=== PATIENT | female | born 1940 | race Caucasian/White ===

== ENCOUNTER 2018-10-24 12:16 | Inpatient (IN) | payer MEDICARE, OTHER, SELFPAY ==
[2018-10-24] VITALS (19 sets, daily range): BP systolic 103–157; BP diastolic 59–117; PULSE 90–141; RESP 18–33; TEMP 36.4–36.8; O2SAT 93–99; BMI 48.4; BMI 47.0
--- NOTE | 2018-10-24 | DI.ECHO.S_ITS ---
[place] [facility]+ [facility] +---------+ : : [address] : : : : [id number] : : : : Phone: [phone] Echocardiogram Report + + :Name: JOANNA BLACK Study Date: 10/26/2018 Height: 59 in : :[facility] Weight: 232 lb : : Gender: Female BSA: 2.0 m2 : :: 1940 Age: 77 yrs BP: 118/90 mmHg: :Reason For Study: Congestive Heart Failure : : Performed By: Matilda Bates : :Referring: HUE HILLIARD : + + Interpretation Summary The ejection fraction is estimated to be 60-65%. The left atrium is severely dilated. The mitral valve leaflets appear mildly thickened, but open well. There is mild to moderate tricuspid regurgitation. The right ventricular systolic pressure is estimated to be at least 32 mmHg based on an estimated right atrial pressure of 3 mm Hg. There is mild to moderate mitral regurgitation. There is moderate to severe mitral annular calcification. Procedure: A two-dimensional transthoracic echocardiogram with color flow and Doppler was performed. The study quality was technically adequate. There is no prior echocardiogram noted for this patient. The patient was in atrial fibrillation with heart rates between 75-90 bpm during the exam. Left Ventricle: The left ventricle is normal in size, wall thickness, and systolic function without any focal wall motion abnormalities. The ejection fraction is estimated to be 60-65%. There are no obvious focal wall motion abnormalities noted but poor endocardial definition reduces the sensitivity for the detection of such. Diastolic function could not be accurately assessed due to atrial fibrillation. Right Ventricle: The right ventricle grossly appears normal in size with probable normal systolic function. Atria: The left atrium is severely dilated. Right atrial size is normal. The interatrial septum is intact with no evidence for an atrial septal defect. Mitral Valve: The mitral valve leaflets appear mildly thickened, but open well. There is moderate to severe mitral annular calcification. There is mild to moderate mitral regurgitation. Aortic Valve: The aortic valve opens well. No aortic regurgitation is present. Tricuspid Valve: The tricuspid valve leaflets are thin and pliable. There is mild to moderate tricuspid regurgitation. The right ventricular systolic pressure is estimated to be at least 32 mmHg based on an estimated right atrial pressure of 3 mm Hg. Pulmonic Valve: The pulmonic valve is not well seen, but is grossly normal. There is mild pulmonic regurgitation. Great Vessels: The aortic root is normal size. The ascending aorta is at the upper limits of normal in size. The IVC is of normal diameter and collapses greater than 50% with a sniff. This suggests a low right atrial pressure of 3 mm Hg. Pericardium/ Pleura There is no pericardial effusion. There is a moderate left-sided pleural effusion. MMode/2D Measurements & Calculations LVIDd: 4.5 cm Ao root diam: 2.7 cm LVIDs: 2.8 cm Aortic Jxn: 2.6 cm FS: 36.4 % asc Aorta Diam: 3.4 cm EPSS: 0.13 cm Ao Arch Diam (Prox Trans): 2.1 cm IVSd: 0.75 cm LVPWd: 0.72 cm LV cid. diameter/BSA (cm/m^2): 2.3 LV sys. diameter/BSA (cm/m^2): 1.4 LA dimension: 4.1 cm RA long axis: 6.3 cm LA A2 area: 27.8 cm2 RA area: 22.0 cm2 LA A4 area: 28.9 cm2 RA vol: 65.6 ml LA length (vol): 6.8 cm RA : 33.4 ml/m2 LA vol: 100.9 ml IVC diam: 2.0 cm LA vol index: 51.4 ml/m2 Doppler Measurements & Calculations Ao V2 max: 121.2 cm/sec MV E max yvette: 152.6 cm/sec Ao V2 mean: 82.1 cm/sec MV A max yvette: 36.6 cm/sec Ao max P.9 mmHg MV E/A: 4.2 Ao mean P.2 mmHg MV dec time: 0.20 sec Ao V2 VTI: 23.2 cm MV P1/2t: 59.2 msec TR max yvette: 269.8 cm/sec MV P1/2t max yvette: 153.9 cm/sec TR max P.1 mmHg MVA(P1/2t): 3.7 cm2 PA V2 max: 76.8 cm/sec PA V2 mean: 44.2 cm/sec PA mean P.0 mmHg PA Accel Time: 0.11 sec Reading Physician:01:13 PM
--- NOTE | 2018-10-24 12:35 | DI.RAD.S_ITS ---
PROCEDURE: XR CHEST 1V INDICATIONS: Shortness of breath TECHNIQUE: One view of the chest was acquired. COMPARISON: [facility], , CHEST 2 VIEW, 05/07/2017, 15:32. FINDINGS: Surgical changes and devices: None. Lungs and pleura: No pleural effusions or pneumothorax. Moderate diffuse coarse interstitial pulmonary opacity. Mediastinum: Mediastinal contours appear normal. Heart size is normal. Bones and chest wall: No suspicious bony lesions. Overlying soft tissues appear unremarkable. IMPRESSION: Moderate atypical pneumonia. Dictated by: Hernan Isabel M.D. on 10/24/2018 at 13:02 Approved by: Hernan Isabel M.D. on 10/24/2018 at 13:02
--- NOTE | 2018-10-24 12:40 | ED.SOB ---
HPI - SOB/Dyspnea General Chief Complaint: Shortness of Breath/Dyspnea Stated Complaint: trouble breathing, diarrhea Time Seen by Provider: 10/24/18 12:35 Source: patient Mode of arrival: ambulatory Limitations: no limitations History of Present Illness Patient is a 77-year-old female here for evaluation of shortness of breath and palpitations. Patient states that she has a history of atrial fibrillation. She is on metoprolol and digoxin. She states that she occasionally goes in atrial fibrillation. She states she does not know when she goes in and out of it. She states that in the past 24 hr she has noticed that her heart rate has been fast and she has been short of breath. No chest pain. Related Data Home Medications Medication Instructions Recorded Confirmed aspirin 81 mg PO QDAY #0 06/16/17 10/24/18 atorvastatin [Lipitor] 40 mg PO QDAY #0 06/16/17 digoxin [Lanoxin] 0.125 mg PO QDAY #0 06/16/17 10/24/18 diltiazem HCl 360 mg PO QDAY #0 06/16/17 10/24/18 furosemide 40 mg PO QDAY #0 06/16/17 10/24/18 potassium chloride [Klor-Con 10] 20 meq PO QD-BID #0 06/16/17 10/24/18 spironolactone 12.5 mg QDAY #0 06/16/17 10/24/18 sulfasalazine 1,000 mg PO BID #0 06/16/17 10/24/18 cholecalciferol (vitamin D3) 2,000 unit PO DAILY 10/24/18 10/24/18 [Vitamin D3] cranberry fruit concentrate 450 mg PO DAILY 10/24/18 10/24/18 [cranberry] diphenhydramine-acetaminophen 1 tab PO BEDTIME PRN 10/24/18 10/24/18 [Tylenol PM Extra Strength] escitalopram oxalate 10 mg PO DAILY 10/24/18 10/24/18 lisinopril [Prinivil] 2.5 mg PO DAILY 10/24/18 10/24/18 metoprolol succinate 200 mg PO BID 10/24/18 10/24/18 rivaroxaban 20 mg PO QPM 10/24/18 10/24/18 Allergies Allergy/AdvReac Type Severity Reaction Status Date / Time No Known Allergies Allergy Uncoded 10/24/18 12:31 Review of Systems Review of Systems All systems reviewed & are unremarkable except as noted in HPI and below Constitutional Denies fever(s) and Denies headache(s) ENT Ears, Nose, Mouth, and Throat: Denies dizziness and Denies headache(s) Cardiovascular Denies chest pain, Denies syncope, Reports rapid heart rate, Reports irregular heart rhythm, Denies lightheadedness, Reports palpitations and Reports dyspnea Respiratory Denies cough, Reports dyspnea and Denies wheezing Gastrointestinal Gastrointestinal: Denies change in bowel habits, Denies nausea and Denies vomiting Genitourinary Denies dysuria Musculoskeletal Denies myalgias and Denies arthralgias Integumentary/Breasts Denies rash Neurologic Denies confusion, Denies dizziness, Denies syncope and Denies headache(s) Psychiatric Denies confusion Endocrine Reports palpitations Hematologic/Lymphatic Denies easy bleeding and Denies easy bruising Allergic/Immunologic Denies wheezing PFSH Medical History Atrial fibrillation (Acute) Hyperlipidemia (Acute) Hypertension (Acute) Surgical History No pertinent past surgical history (Acute) Social History lives independently: Yes Smoking Status: Former smoker Exam Initial Vital Signs Initial Vital Signs: Vital Signs Temperature 97.7 F 10/24/18 12:26 Pulse Rate 132 H 10/24/18 12:26 Blood Pressure 157/117 H 10/24/18 12:26 Pulse Oximetry 93 10/24/18 12:26 Const General: cooperative, comfortable, well developed, well groomed and No acute distress Orientation: alert, awake and oriented x3 HENMT Head: normal to inspection and normocephalic Eyes General: appearance normal, both eyes and all related structures Neck Neck: no meningeal signs Chest Chest: normal inspection of the chest Resp Effort & Inspection: not labored, no respiratory distress, no retractions and tachypneic Auscultation: clear to auscultation bilaterally Cardio Rate: tachycardic Rhythm: abnormal rhythm irregularly irregular Pulses: radial pulses present GI Inspection: non-distended Palpation: soft, No firm and No tender Skin Lesions: no lesions Rashes: no rashes Neuro General: alert, awake and oriented x3 Cognition: normal cognition Speech: speech normal Sensory Exam: no sensory deficits noted Extrem General: capillary refill normal Psych Appearance: grossly normal and well kempt Course Orders Ordered: ED Orders 10/24/18 12:35 XR chest 1V Stat EKG-12 Lead Stat 10/24/18 12:55 B Type Natriuretic Peptide Stat Complete Blood Count AUTO DIFF Stat Comprehensive Metabolic Panel Stat Ethanol (ETOH) Stat Lipase Stat Partial Thromboplastin Time Stat Prothrombin Time INR Stat Troponin I Stat Diltiazem HCl 125 mg/ Dextrose 125 mls @ 5 mls/hr IV TITRATE CARISSA; Protocol Last Titration: 10/24/18 14:57 Dose: 10 mg/hr, 10 mls/hr Admin: 10/24/18 14:23 Dose: 5 mg/hr, 5 mls/hr Discontinued Medications Diltiazem HCl (Cardizem) 10 mg IV NOW ONE Stop: 10/24/18 12:53 Last Admin: 10/24/18 13:03 Dose: 10 mg Levofloxacin (Levaquin) 750 mg in 150 mls @ 100 mls/hr IV NOW ONE Stop: 10/24/18 15:09 Last Admin: 10/24/18 14:23 Dose: 100 mls/hr Metoprolol Succinate (Toprol Xl) 200 mg PO NOW ONE Stop: 10/24/18 14:51 Last Admin: 10/24/18 15:06 Dose: 200 mg Vital Signs - 8 hr 10/24/18 12:26 10/24/18 12:45 10/24/18 13:03 Temperature 97.7 F Pulse Rate 132 H 141 H Respiratory Rate Blood Pressure 157/117 H 130/90 Blood Pressure [Left Arm] 157/117 H Pulse Oximetry 93 10/24/18 13:30 10/24/18 14:00 10/24/18 14:23 Temperature Pulse Rate 112 H 123 H 118 H Respiratory Rate 33 H 25 H Blood Pressure 121/95 H Blood Pressure [Left Arm] 113/72 121/95 H Pulse Oximetry 93 93 10/24/18 14:30 10/24/18 15:06 Temperature Pulse Rate 124 H 128 H Respiratory Rate 33 H Blood Pressure 114/98 H Blood Pressure [Left Arm] 133/83 Pulse Oximetry 93 MDM - SOB/Dyspnea Lab Data Attestation: I reviewed the patient's lab results. Result diagrams: 10/24/18 12:55 10/24/18 12:55 Lab Results 10/24/18 10/24/18 10/24/18 Range/Units 12:55 12:55 12:55 WBC 9.1 (4.5-11.0) X10^3/uL RBC 4.19 (4.0-5.2) X10^6/uL Hgb 13.8 (12.0-16.0) g/dL Hct 41.3 (36-46) % MCV 98.6 (80-100) fL MCH 32.8 (26-34) PG MCHC 33.3 (30-36) % RDW 15.5 H (11.6-14.8) % Plt Count 252 (150-400) X10^3/uL Neut % (Auto) 80.0 H (50-75) % Lymph % (Auto) 8.0 L (25-40) % [place] % (Auto) 11.0 (3-14) % Eos % (Auto) 0.4 L (2-4) % Baso % (Auto) 0.6 (0-2) % Neut # (Auto) 7200 H (8047-6638) /uL PT 25.4 H (10.1-12.7) SECONDS INR 2.3 H (0.9-1.3) APTT 32 (26.4-36.2) SECONDS Sodium 144 (137-145) mmol/L Potassium 4.4 (3.4-5.1) mmol/L Chloride 101 (98-107) mmol/L Carbon Dioxide 30 (22-32) mmol/L BUN 13 (7-17) mg/dL Creatinine 0.70 (0.52-1.04) mg/dL Estimated GFR > 60.0 (>60) mL/min BUN/Creatinine Ratio 18.6 (6-22) Glucose 92 (80-110) mg/dL Calcium 9.5 (8.4-10.2) mg/dL Total Bilirubin 1.2 (0.2-1.3) mg/dL AST 53 H (14-36) IU/L ALT 37 (9-52) IU/L Alkaline Phosphatase 88 (38-126) U/L Troponin I 0.059 H (0.01-0.034) ng/mL B-Natriuretic Peptide 391.0 H (<100) Total Protein 7.6 (6.3-8.2) g/dL Albumin 4.2 (3.5-5.0) g/dL Globulin 3.4 (1.7-4.1) g/dL Albumin/Globulin Ratio 1.2 (1.0-2.8) Lipase 28 (23-300) U/L Ethyl Alcohol < 10 mg/dL Imaging Data Chest x-ray: Radiologist's impression: PROCEDURE: XR CHEST 1V INDICATIONS: Shortness of breath TECHNIQUE: One view of the chest was acquired. COMPARISON: [facility], , CHEST 2 VIEW, 05/07/2017, 15:32. FINDINGS: Surgical changes and devices: None. Lungs and pleura: No pleural effusions or pneumothorax. Moderate diffuse coarse interstitial pulmonary opacity. Mediastinum: Mediastinal contours appear normal. Heart size is normal. Bones and chest wall: No suspicious bony lesions. Overlying soft tissues appear unremarkable. IMPRESSION: Moderate atypical pneumonia. Dictated by: Hernan Isabel M.D. on 10/24/2018 at 13:02 Approved by: Hernan Isabel M.D. on 10/24/2018 at 13:02 ECG Data Attestation: I personally reviewed and interpreted this ECG as follows: Prior ECG tracings: not available for review Interpretation: Atrial fibrillation Ventricular rate of 132 Right bundle branch block Normal QRS Normal QTC No ST T wave changes MDM Narrative Medical decision making narrative: Patient with what appears to be a history of paroxysmal atrial fibrillation. She is currently anticoagulated. She is on metoprolol and digoxin. She arrives today with shortness of breath and palpitations. She was given initial bolus of Cardizem which did improve her heart rate into the 90s however return to the 120s. She was never hypotensive. She was started on a Cardizem drip. She states that in the past metoprolol has helped her symptoms so an oral dose of metoprolol was ordered. During her stay here she did tell us that she has not taken any of her medications since Friday. The chest x-ray was concerning for a atypical pneumonia. She did have coarse breath sounds upon arrival was also shortness of breath. She was started on Levaquin. I suspect that the slight bump in her troponin is demand ischemia from the atrial fibrillation. I discussed the case with Dr. Smith with Internal Medicine. Will admit to the ICU on a Cardizem drip. I discussed the admission with the patient. Family was at bedside. They all expressed understanding and agreement with this plan. Critical Care Time Critical Care Time: Yes Total Critical Care Time: 35 Attestation: The high probability of a clinically significant, sudden or life threatening deterioration of the cardiovascular system(s) required my full and direct attention, intervention and personal management. The aggregate critical care time was 35 minutes. This time is in addition to time spent performing reported procedures but includes the following: [] Data Review and interpretation [] Patient assessment and monitoring of vital signs [] Documentation [] Medication orders and management Coordination of care Discharge Plan Departure Patient Disposition: Admitted As Inpatient Clinical Impression: Atrial fibrillation with rapid ventricular response, Pneumonia Admit Date/Time: 10/24/18 15:03 Admit Provider: Stephanie Smith
[2018-10-24] MEDS: dilTIAZem 5 MG/ML SDV 10 MG IV (13:03)
[2018-10-24 13:04] LABS: Add Manual Diff / Slide Review NO; Basophils Percent Auto 0.6 % (0-2); Eosinophils Percent Auto 0.4 % (2-4); Hematocrit 41.3 % (36-46); Hemoglobin 13.8 g/dL (12.0-16.0); Mean Corpuscular HGB Conc 33.3 % (30-36); Mean Corpuscular Hemoglobin 32.8 PG (26-34); Mean Corpuscular Volume 98.6 fL (80-100); Neutrophils Absolute Auto 7200 /uL (3000-5900); Platelet Count 252 X10^3/uL (150-400); Red Blood Cell Count 4.19 X10^6/uL (4.0-5.2); Red Cell Distribution Width 15.5 % (11.6-14.8); White Blood Cell Count 9.1 X10^3/uL (4.5-11.0)
[2018-10-24 13:15] LABS: INR 2.3 (0.9-1.3); Prothrombin Time 25.4 SECONDS (10.1-12.7)
[2018-10-24 13:18] LABS: PTT Partial Thromboplastin Tim 32 SECONDS (26.4-36.2)
[2018-10-24 13:19] LABS: Alanine Aminotransferase 37 IU/L (9-52); Albumin 4.2 g/dL (3.5-5.0); Albumin Globulin Ratio 1.2 (1.0-2.8); Alkaline Phosphatase 88 U/L (38-126); Aspartate Aminotransferase 53 IU/L (14-36); BUN Creatinine Ratio 18.6 (6-22); Bilirubin Total 1.2 mg/dL (0.2-1.3); Blood Urea Nitrogen 13 mg/dL (7-17); Calcium 9.5 mg/dL (8.4-10.2); Carbon Dioxide 30 mmol/L (22-32); Chloride 101 mmol/L (98-107); Estimated Glomerular Filt Rate > 60.0 mL/min (>60); Ethanol (ETOH) < 10 mg/dL; Globulin 3.4 g/dL (1.7-4.1); Glucose 92 mg/dL (80-110); HEMOLYSIS 18 (0-50); Lipase 28 U/L (23-300); Potassium 4.4 mmol/L (3.4-5.1); Sodium 144 mmol/L (137-145); Total Protein 7.6 g/dL (6.3-8.2)
[2018-10-24 13:29] LABS: Troponin I 0.059 ng/mL (0.01-0.034)
--- NOTE | 2018-10-24 13:41 | PC.NURSE ---
Pt's hr continues to be irregular. Hr ranges from 90s to 130s.
[2018-10-24] MEDS: levoFLOXacin 750 MG/150 ML PIGGYBACK 100 MG IV (14:23)
[2018-10-24] MEDS: dilTIAZem 125 MG in DEXTROSE 5 % IN WATER 100 ML IV (14:23)
[2018-10-24] MEDS: METOPROLOL ER 50 MG TABLET 200 MG PO ×2 (15:06→20:38)
--- NOTE | 2018-10-24 15:56 | PM.HP.1 ---
History of Present Illness Date Patient Seen: 10/24/18 Time Patient Seen: 16:12 Chief complaint: trouble breathing, diarrhea Narrative: 77-year-old female with known past medical history of atrial fibrillation on multiple therapy as well as anticoagulation, hyperlipidemia, hypertension, questionable heart failure, depression/anxiety presented to emergency department with shortness of breath. Patient states that her has been at [facility] for the past 2 weeks due to bypass surgery, and patient has been visiting him on the daily basis and living in the hotel near the hospital. Because of frequent visitations and constant traveling, patient has stopped taking all her medications over week ago due to no time. About 4 days ago patient started noticing increasing shortness of breath. She has also noticed palpitations that would occur on and off for the past 4 days, that would go away in their own. Patient denies any loss of consciousness, blurry vision, dizziness. Patient denies any cough or mucus per day section. Patient denies any chest pain. Patient denies any nausea, vomiting caused abdominal pain, constipation, however states that she has been having loose stools for the past 4 days. The stools are nonbilious nonbloody, non melenic, not volumous, more formed, and occur once or twice a day. Patient denies any symptoms. Of note patient did state that she has makes her antidepressive medications with alcohol 2 days ago which has resulted in remote memory loss and action of events the patient does not recall. In the emergency department patient's vital signs revealed tachycardia with heart rate between 130-150. Although patient was tachypneic and 12/20/2021, she was saturating 96-97% on room air. Blood pressure was 141/103. She was afebrile. Patient was given Cardizem IV push with subsequent drop in heart rate to 90s. Prior to patient being discharged, however, her heart rate went back up to 130s-150s. She was placed on Cardizem drip. Lab workup revealed WBCs 9.1, hemoglobin 13.8, hematocrit 41.3, platelets 252. Sodium 144, potassium 4.4, chloride 101, carbon dioxide 30, BUN 13, creatinine 0.7, glucose 92. LFTs within normal range. Troponin slightly elevated at 0.059. BNP slightly elevated at 391. EKG showed AFib with RVR however no ST changes. Chest x-ray revealed no pleural effusions or pneumothorax but moderate diffuse coarse interstitial pulmonary opacity, consistent with moderate atypical pneumonia. Patient was admitted to ICU for further management of AFib with RVR and atypical pneumonia. Patient History Medical History Atrial fibrillation (Acute) Atypical pneumonia (Acute) DVT (deep venous thrombosis) (Acute) Hyperlipidemia (Acute) Hypertension (Acute) Depression (Chronic) Surgical History H/O section (Acute) History of appendectomy (Acute) History of cholecystectomy (Acute) No pertinent past surgical history (Acute) Family & Social History Social History: lives independently Yes Safety & Behavioral: Feels Safe in Current Yes Environment Tobacco & Substance use: Smoking Status Former smoker alcohol intake frequency holiday/special occasion Substance Use Type does not use Meds Home Medications Medication Instructions Recorded Confirmed Type aspirin 81 mg PO QDAY #0 06/16/17 10/24/18 History atorvastatin [Lipitor] 40 mg PO QDAY #0 06/16/17 10/24/18 History digoxin [Lanoxin] 0.125 mg PO QDAY #0 06/16/17 10/24/18 History diltiazem HCl 360 mg PO QDAY #0 06/16/17 10/24/18 History furosemide 40 mg PO QDAY #0 06/16/17 10/24/18 History potassium chloride [Klor-Con 10] 20 meq PO QD-BID #0 06/16/17 10/24/18 History spironolactone 12.5 mg QDAY #0 06/16/17 10/24/18 History sulfasalazine 1,000 mg PO BID #0 06/16/17 10/24/18 History cholecalciferol (vitamin D3) 2,000 unit PO DAILY 10/24/18 10/24/18 History [Vitamin D3] cranberry fruit concentrate 450 mg PO DAILY 10/24/18 10/24/18 History [cranberry] diphenhydramine-acetaminophen 1 tab PO BEDTIME PRN 10/24/18 10/24/18 History [Tylenol PM Extra Strength] escitalopram oxalate 10 mg PO DAILY 10/24/18 10/24/18 History lisinopril [Prinivil] 2.5 mg PO DAILY 10/24/18 10/24/18 History metoprolol succinate 200 mg PO BID 10/24/18 10/24/18 History rivaroxaban 20 mg PO QPM 10/24/18 10/24/18 History Allergies Allergy/AdvReac Type Severity Reaction Status Date / Time No Known Allergies Allergy Uncoded 10/24/18 12:31 Review of Systems Review of Systems All systems reviewed & are unremarkable except as noted in HPI and below Exam Vital Signs (past 8 hours): - 10/24/18 12:26 10/24/18 12:45 10/24/18 13:03 Temperature 97.7 F Pulse Rate 132 H 141 H Respiratory Rate Blood Pressure 157/117 H 130/90 Blood Pressure [Left Arm] 157/117 H Pulse Oximetry 93 10/24/18 13:30 10/24/18 14:00 10/24/18 14:23 Temperature Pulse Rate 112 H 123 H 118 H Respiratory Rate 33 H 25 H Blood Pressure 121/95 H Blood Pressure [Left Arm] 113/72 121/95 H Pulse Oximetry 93 93 10/24/18 14:30 10/24/18 15:06 10/24/18 15:45 Temperature Pulse Rate 124 H 128 H 115 H Respiratory Rate 33 H 20 Blood Pressure 114/98 H 141/103 H Blood Pressure [Left Arm] 133/83 Pulse Oximetry 93 96 10/24/18 15:50 Temperature Pulse Rate 116 H Respiratory Rate Blood Pressure 141/103 H Blood Pressure [Left Arm] Pulse Oximetry Oxygen Delivery Method Nasal Cannula Oxygen Flow Rate 2 Narrative Exam Narrative: General: No acute distress, A/O x3 HEENT: Nasal cannula oxygen in place. PERRLA bilaterally. Moist mucous membranes. Neck: Supple, no JVD or LAD CV: Irregular rhythm, tachycardia, no murmurs or gallops Respiratory: Tachypnea, coarse breath sounds throughout all lung english with mild crackles in the left base. No wheezing GI: Positive bowel sounds in all 4 quadrants, no organomegaly, no tenderness to palpation Musculoskeletal: Patient moves all extremities Extremities: 2+ pitting edema in lower extremities bilaterally up to knees Skin: No lesions or bruising Neuro: No focal deficits Psych: Mood is appropriate, AAO x3 Objective Labs Result Diagrams: 10/24/18 12:55 10/24/18 12:55 Labs: Laboratory Results - last 24 hr 10/24/18 10/24/18 10/24/18 12:55 12:55 12:55 WBC 9.1 RBC 4.19 Hgb 13.8 Hct 41.3 MCV 98.6 MCH 32.8 MCHC 33.3 RDW 15.5 H Plt Count 252 Neut % (Auto) 80.0 H Lymph % (Auto) 8.0 L [place] % (Auto) 11.0 Eos % (Auto) 0.4 L Baso % (Auto) 0.6 Neut # (Auto) 7200 H PT 25.4 H INR 2.3 H APTT 32 Sodium 144 Potassium 4.4 Chloride 101 Carbon Dioxide 30 BUN 13 Creatinine 0.70 Estimated GFR > 60.0 BUN/Creatinine Ratio 18.6 Glucose 92 Calcium 9.5 Total Bilirubin 1.2 AST 53 H ALT 37 Alkaline Phosphatase 88 Troponin I 0.059 H B-Natriuretic Peptide 391.0 H Total Protein 7.6 Albumin 4.2 Globulin 3.4 Albumin/Globulin Ratio 1.2 Lipase 28 Ethyl Alcohol < 10 Assessment & Plan Plan: Assessment/Plan Narrative: 1. AFib with RVR -likely due to medication noncompliance -failed diltiazem push in emergency department, now on Cardizem drip -continue Cardizem drip at this time and resume home medications metoprolol, digoxin, aspirin, and Xarelto. Will transition to home regimen p.o. Cardizem once patient's heart rate is controlled -continue to monitor on telemetry in ICU 2. Atypical pneumonia -as demonstrated on chest x-ray -no leukocytosis, patient is afebrile and hemodynamically stable (aside from AFib with RVR) -started on Levaquin IV in the ED, will continue at this time -will get blood cultures, sputum cultures, Legionella urine antigen, and mycoplasma urine to test -do nebs as needed as per RT, oxygen as per RT 3. Hypertension -blood pressure elevated on admission: 141/103 -will resume home regimen metoprolol, spironolactone, furosemide -patient is on Cardizem drip -monitor blood pressure 4. Fluid overload -likely due to medication noncompliance -patient is on home medication furosemide and spironolactone.... Ejection fraction is unknown -BNP 391 and clinically patient has peripheral edema -will get echocardiogram to assess ejection fraction -will resume furosemide and spironolactone -weights daily, I/O measurement, fluid restriction 5. Troponin elevation -likely type II demand ischemia due to AFib with RVR -troponin is 0.059 -EKG showed AFib with RVR but no ST changes and patient is pain-free -continue to trend troponins and EKGs q.6 hours x2 more until trending down 6. Depression/anxiety -resume home regimen Lexapro Patient is full code DVT prophylaxis with resumption of Xarelto 60 min spent evaluating and managing patient 6.
--- NOTE | 2018-10-24 16:55 | PC.NURSE ---
Admit Note 1610 - Patient admitted to room 104. Brought over on stretcher by nursing staff. Able to walk self to bed with standby assist. Alert and oriented with pleasant affect. Denies pain at this time. Has some SOB with exertion. Peaceful at rest. Diltiazem gtt running per order at 10mg/hr. Oriented to room and call light, call light within reach, family at bedside.
[2018-10-24] MEDS: POTASSIUM CHLORIDE 20 MEQ TAB PO (17:14)
[2018-10-24] MEDS: RIVAROXABAN 10 MG TABLET 20 MG PO (17:14)
[2018-10-24] MEDS: DIGOXIN 0.125 MG TABLET PO (17:15)
[2018-10-24 20:17] LABS: Troponin I 0.068 ng/mL (0.01-0.034)
[2018-10-24] MEDS: ATORVASTATIN 20 MG TABLET 40 MG PO (20:38)
[2018-10-25] VITALS (18 sets, daily range): BP systolic 98–156; BP diastolic 51–85; PULSE 73–109; RESP 11–28; TEMP 36.2–37.2; O2SAT 86–99
[2018-10-25] MEDS: dilTIAZem 125 MG in DEXTROSE 5 % IN WATER 100 ML 10 ML IV (01:41)
--- NOTE | 2018-10-25 03:29 | PC.NURSE ---
[employer] Operator Note: 0030: Sleeping intermittently. Remains on Cardizem drip at 10mg/hr. HR 95-110. Pt denies chest pain or pressure. IV in place in lt AC and saline lock in rt AC. Remains on O2 2L/NC. 0300: HR down to 78-84. Cardizem drip decreased to 5mg/hr, 0320: HR remains 84-94. Cardizem drip decreased to 2mg/hr.
[2018-10-25 05:48] LABS: Add Manual Diff / Slide Review NO; Basophils Percent Auto 0.8 % (0-2); Eosinophils Percent Auto 1.8 % (2-4); Hematocrit 38.5 % (36-46); Hemoglobin 12.7 g/dL (12.0-16.0); Lymphocytes Percent Auto 12.7 % (25-40); Mean Corpuscular HGB Conc 32.9 % (30-36); Mean Corpuscular Hemoglobin 32.5 PG (26-34); Mean Corpuscular Volume 98.8 fL (80-100); Monocytes Percent Auto 15.5 % (3-14); Neutrophils Absolute Auto 4400 /uL (3000-5900); Neutrophils Percent Auto 69.2 % (50-75); Platelet Count 220 X10^3/uL (150-400); Red Cell Distribution Width 15.3 % (11.6-14.8); White Blood Cell Count 6.3 X10^3/uL (4.5-11.0)
[2018-10-25 05:54] LABS: BUN Creatinine Ratio 18.6 (6-22); Blood Urea Nitrogen 13 mg/dL (7-17); Calcium 8.8 mg/dL (8.4-10.2); Carbon Dioxide 28 mmol/L (22-32); Chloride 102 mmol/L (98-107); Estimated Glomerular Filt Rate > 60.0 mL/min (>60); Glucose 86 mg/dL (80-110); HEMOLYSIS 38 (0-50); Potassium 4.5 mmol/L (3.4-5.1); Sodium 140 mmol/L (137-145)
[2018-10-25 06:17] LABS: Troponin I 0.048 ng/mL (0.01-0.034)
--- NOTE | 2018-10-25 07:58 | PM.PN.1 ---
Subjective Date Patient Seen: 10/25/18 Time Patient Seen: 07:58 Interval history: Follow-up on AFib with RVR, and shortness of breath Patient seen at bedside. She was on Cardizem drip all throughout the night, which successfully weaned down to 2 mg per hour. Will attempt transitioning to p.o. today. Patient's oxygenation dropped to 88% overnight, and she was placed on 2 L oxygen. No chest pain, fevers, nausea or vomiting. Exam Vital Signs (past 8 hours): - 10/25/18 00:00 10/25/18 01:00 10/25/18 02:00 Temperature 97.8 F 97.3 F L Pulse Rate 90 85 83 Respiratory Rate 16 18 16 Blood Pressure 109/74 107/59 L 113/74 Pulse Oximetry 96 98 97 10/25/18 04:00 10/25/18 05:00 10/25/18 06:00 Temperature 97.9 F Pulse Rate 85 88 91 H Respiratory Rate 18 14 11 L Blood Pressure 114/80 116/60 117/74 Pulse Oximetry 99 97 99 10/25/18 07:00 Temperature 97.8 F Pulse Rate 102 H Respiratory Rate 16 Blood Pressure 131/85 Pulse Oximetry 96 Oxygen Delivery Method Nasal Cannula Oxygen Flow Rate 2.5 Narrative Exam Narrative: General: No acute distress, A/O x3 HEENT: Nasal cannula oxygen in place. PERRLA bilaterally. Moist mucous membranes. Neck: Supple, no JVD or LAD CV: Irregular rhythm, no murmurs or gallops Respiratory: Coarse breath sounds throughout all lung english with mild crackles in the left base. No wheezing GI: Positive bowel sounds in all 4 quadrants, no organomegaly, no tenderness to palpation Musculoskeletal: Patient moves all extremities Extremities: 2+ pitting edema in lower extremities bilaterally up to knees Skin: No lesions or bruising Neuro: No focal deficits Psych: Mood is appropriate, AAO x3 Objective Labs Result Diagrams: 10/25/18 05:06 10/25/18 05:06 Labs: Laboratory Results - last 24 hr 10/24/18 10/24/18 10/24/18 12:55 12:55 12:55 WBC 9.1 RBC 4.19 Hgb 13.8 Hct 41.3 MCV 98.6 MCH 32.8 MCHC 33.3 RDW 15.5 H Plt Count 252 Neut % (Auto) 80.0 H Lymph % (Auto) 8.0 L Daggett % (Auto) 11.0 Eos % (Auto) 0.4 L Baso % (Auto) 0.6 Neut # (Auto) 7200 H PT 25.4 H INR 2.3 H APTT 32 Sodium 144 Potassium 4.4 Chloride 101 Carbon Dioxide 30 BUN 13 Creatinine 0.70 Estimated GFR > 60.0 BUN/Creatinine Ratio 18.6 Glucose 92 Calcium 9.5 Total Bilirubin 1.2 AST 53 H ALT 37 Alkaline Phosphatase 88 Troponin I 0.059 H B-Natriuretic Peptide 391.0 H Total Protein 7.6 Albumin 4.2 Globulin 3.4 Albumin/Globulin Ratio 1.2 Lipase 28 Nasal Screen MRSA (PCR) Ethyl Alcohol < 10 10/24/18 10/24/18 10/25/18 16:10 19:10 05:06 WBC 6.3 RBC 3.90 L Hgb 12.7 Hct 38.5 MCV 98.8 MCH 32.5 MCHC 32.9 RDW 15.3 H Plt Count 220 Neut % (Auto) 69.2 Lymph % (Auto) 12.7 L Daggett % (Auto) 15.5 H Eos % (Auto) 1.8 L Baso % (Auto) 0.8 Neut # (Auto) 4400 PT INR APTT Sodium Potassium Chloride Carbon Dioxide BUN Creatinine Estimated GFR BUN/Creatinine Ratio Glucose Calcium Total Bilirubin AST ALT Alkaline Phosphatase Troponin I 0.068 H B-Natriuretic Peptide Total Protein Albumin Globulin Albumin/Globulin Ratio Lipase Nasal Screen MRSA (PCR) Negative for mrsa Ethyl Alcohol 10/25/18 10/25/18 05:06 05:06 WBC RBC Hgb Hct MCV MCH MCHC RDW Plt Count Neut % (Auto) Lymph % (Auto) Daggett % (Auto) Eos % (Auto) Baso % (Auto) Neut # (Auto) PT INR APTT Sodium 140 Potassium 4.5 Chloride 102 Carbon Dioxide 28 BUN 13 Creatinine 0.70 Estimated GFR > 60.0 BUN/Creatinine Ratio 18.6 Glucose 86 Calcium 8.8 Total Bilirubin AST ALT Alkaline Phosphatase Troponin I 0.048 H B-Natriuretic Peptide Total Protein Albumin Globulin Albumin/Globulin Ratio Lipase Nasal Screen MRSA (PCR) Ethyl Alcohol Assessment & Plan Plan: Assessment/Plan Narrative: 1. AFib with RVR -likely due to medication noncompliance -failed diltiazem push in emergency department, now on Cardizem drip but down to 2mg/hr -Will transition to home dose cardizem PO and turn off the drip -continue metoprolol, digoxin, aspirin, and Xarelto -continue to monitor on telemetry in ICU 2. Atypical pneumonia -as demonstrated on chest x-ray -no leukocytosis, patient is afebrile and hemodynamically stable (aside from AFib with RVR) -continue Levaquin IV -pending blood cultures, sputum cultures, Legionella urine antigen, and mycoplasma urine to test -duonebs as needed as per RT, oxygen as per RT 3. Hypertension -blood pressure stable -will resume home regimen metoprolol, spironolactone, furosemide. Will now add on Cardizem PO -monitor blood pressure 4. Fluid overload -likely due to medication noncompliance -patient is on home medication furosemide and spironolactone.... Ejection fraction is unknown -BNP 391 and clinically patient has peripheral edema -echocardiogram to assess ejection fraction is pending -continue furosemide and spironolactone -weights daily, I/O measurement, fluid restriction 5. Troponin elevation -likely type II demand ischemia due to AFib with RVR -troponin is 0.059->.068->.048 -EKG showed AFib with RVR but no ST changes and patient is pain-free -continue telemetry monitoring, no more troponin trending 6. Depression/anxiety -continue home regimen Lexapro Patient is full code DVT prophylaxis with resumption of Xarelto
[2018-10-25] MEDS: CHOLECALCIFEROL (VITAMIN D3) 1,000 UNIT TABLET 2000 UNIT PO (08:21)
[2018-10-25] MEDS: METOPROLOL ER 50 MG TABLET 200 MG PO ×2 (08:22→21:01)
[2018-10-25] MEDS: SPIRONOLACTONE 25 MG TABLET 12.5 MG PO (08:23)
[2018-10-25] MEDS: LISINOPRIL 5 MG TABLET 2.5 MG PO (08:27)
[2018-10-25] MEDS: POTASSIUM CHLORIDE 20 MEQ TAB PO ×2 (08:27→16:57)
[2018-10-25] MEDS: ESCITALOPRAM 10 MG TABLET PO (08:27)
[2018-10-25] MEDS: ASPIRIN EC 81 MG TABLET PO (08:27)
[2018-10-25] MEDS: FUROSEMIDE 40 MG TABLET PO (08:27)
[2018-10-25] MEDS: dilTIAZem CD 180 MG CAP 360 MG PO (08:30)
--- NOTE | 2018-10-25 08:43 | CM.DANOTE ---
Addendum entered by Arcelia Garnica R.N. 10/25/18 10:59: Discussed case with XI Yanez, regarding patient's non-compliance with medication. Discussed at rounds as well. Original Note: Case received, EMR reviewed and met with patient. Introduced self and role. DCP template completed with information currently available. Patient is a 77 year old female who admitted yesterday afternoon to the care of the hospitalist team. PCP: Dr. Smalls. Payer: confirmed: Medicare/[employer]. Patient came to hospital via family vehicle, with symptoms of difficulty breathing. Patient has history of A-fib/RVR. Patient was noted to have tachycardia at admission. Also carries diagnosis of Pneumonia. Patient alert, on oxygen. Her has been at [facility] in [place], just had bypass surgery, and she had been going back and forth to see him. She stated that he is now at [facility]. Patient had not been taking her medications as she should be, due to her being pre-occupied with 's illness. Asked patient if she had family support, stated that she has friends, and that her grandson, Hector, lives with her. Unclear if patient may need assist with medication management through Home Health, but will assess as plan unfolds. Patient lives in [place]. P: DCP to follow closely as plan unfolds, and note how she progresses in hospital. Arcelia Garnica RN/[employer]
--- NOTE | 2018-10-25 10:27 | CM.SWNOTE ---
Master Merchandiser Consult Request: Reviewed this w/ RN DC Physicist Acoust[employer] Emma; she has met w/pt and does not see a need for WORD PROCESSING MACHINE OPERATOR to consult at this time. RN will update WORD PROCESSING MACHINE OPERATOR team if needs change. LUKE
[2018-10-25] MEDS: RIVAROXABAN 10 MG TABLET 20 MG PO (16:56)
[2018-10-25] MEDS: DIGOXIN 0.125 MG TABLET PO (16:56)
[2018-10-25] MEDS: NYSTATIN POWDER 30 GM 1 APPLIC TOP (19:16)
[2018-10-25] MEDS: ATORVASTATIN 20 MG TABLET 40 MG PO (21:01)
[2018-10-26] VITALS (9 sets, daily range): BP systolic 92–118; BP diastolic 44–90; PULSE 59–98; RESP 17–25; TEMP 36.1–36.6; O2SAT 90–97
[2018-10-26 05:36] LABS: Add Manual Diff / Slide Review NO; Basophils Percent Auto 0.8 % (0-2); Eosinophils Percent Auto 2.2 % (2-4); Hematocrit 39.1 % (36-46); Hemoglobin 12.9 g/dL (12.0-16.0); Lymphocytes Percent Auto 14.2 % (25-40); Mean Corpuscular Hemoglobin 32.6 PG (26-34); Mean Corpuscular Volume 98.8 fL (80-100); Monocytes Percent Auto 14.9 % (3-14); Neutrophils Absolute Auto 5000 /uL (3000-5900); Neutrophils Percent Auto 67.9 % (50-75); Platelet Count 233 X10^3/uL (150-400); Red Blood Cell Count 3.96 X10^6/uL (4.0-5.2); Red Cell Distribution Width 15.3 % (11.6-14.8); White Blood Cell Count 7.4 X10^3/uL (4.5-11.0)
[2018-10-26 05:38] LABS: BUN Creatinine Ratio 21.3 (6-22); Blood Urea Nitrogen 17 mg/dL (7-17); Carbon Dioxide 33 mmol/L (22-32); Chloride 100 mmol/L (98-107); Estimated Glomerular Filt Rate > 60.0 mL/min (>60); Glucose 95 mg/dL (80-110); HEMOLYSIS < 15 (0-50); Potassium 4.2 mmol/L (3.4-5.1); Sodium 140 mmol/L (137-145)
[2018-10-26] MEDS: CHOLECALCIFEROL (VITAMIN D3) 1,000 UNIT TABLET 2000 UNIT PO (08:36)
[2018-10-26] MEDS: dilTIAZem CD 180 MG CAP 360 MG PO (08:36)
[2018-10-26] MEDS: FUROSEMIDE 40 MG TABLET PO (08:36)
[2018-10-26] MEDS: LISINOPRIL 5 MG TABLET 2.5 MG PO (08:36)
[2018-10-26] MEDS: ASPIRIN EC 81 MG TABLET PO (08:36)
[2018-10-26] MEDS: METOPROLOL ER 50 MG TABLET 200 MG PO (08:36)
[2018-10-26] MEDS: ESCITALOPRAM 10 MG TABLET PO (08:38)
[2018-10-26] MEDS: SPIRONOLACTONE 25 MG TABLET 12.5 MG PO (08:39)
[2018-10-26] MEDS: POTASSIUM CHLORIDE 20 MEQ TAB PO ×2 (08:39→17:15)
[2018-10-26] MEDS: levoFLOXacin 750 MG/150 ML PIGGYBACK 100 MG IV (14:43)
--- NOTE | 2018-10-26 15:01 | PC.NURSE ---
pt reports no pain- has been non-compliant with home rx - I feel that she does not understand the importance of her medications and the uses of same-she remains mostly incontinent of urine and lab requires a specimen for test ordered in ed( reported to next shift- echo complete
[2018-10-26] MEDS: RIVAROXABAN 10 MG TABLET 20 MG PO (17:15)
--- NOTE | 2018-10-26 18:22 | PM.PN.1 ---
Subjective Date Patient Seen: 10/26/18 Time Patient Seen: 18:22 Interval history: PATIENT TODAY SHE IS FEELS BETTER. SHE DENIED ANY SHORTNESS OF BREATH OR CHEST PAIN. NO SIGNIFICANT ISSUES OVERNIGHT NO OTHER COMPLAINTS Exam Vital Signs (past 8 hours): - 10/26/18 12:00 10/26/18 15:37 10/26/18 16:40 Temperature 97.5 F L 97.5 F L Pulse Rate 84 70 59 L Respiratory Rate 17 23 Blood Pressure 109/63 92/47 L 92/47 L Pulse Oximetry 90 L 92 Oxygen Delivery Method Room Air Oxygen Flow Rate 2 Narrative Exam Narrative: NO ACUTE DISTRESS. PATIENT IS ALERT ORIENTED X3. VITAL SIGNS STABLE HEAD ATRAUMATIC NORMOCEPHALIC NECK : SUPPLE WITHOUT ADENOPATHY BECAUSE SHE WOULD HAS REVIEWED THE EYE: EOMI, PERRLA, NORMAL CONJUNCTIVA CHEST: REGULAR RATE.. NO RUBS. PMI IS NON DISPLACED. 1/6 SYSTOLIC MURMUR NOTED ON THE 2ND INTRACOSTAL IN THE RIGHT PULMONARY DECREASED OVER THE BASES. MILD BIBASILAR CRACKLES NOTED; NO INCREASED DULLNESS TO PERCUSSION EXTREMITIES: 1+ EDEMA. NONPITTING. NO CYANOSIS CLUBBING NOTED. NEURO: CRANIAL NERVES 2-12 GROSSLY INTACT. NO FOCAL NEUROLOGICAL DEFICIT NOTED. MSK: NORMAL RANGE OF MOTION FOR AGE. NO JOINT EFFUSION. SKIN: NORMAL FOR ETHNICITY; NO ECCHYMOSIS. NO LESION. FAIR TURGOR. : NORMAL EXTERNAL GENITALIA. PSYCH : APPROPRIATE MOOD AND AFFECT. ALERT AWAKE ORIENTED X3 Objective Labs Result Diagrams: 10/26/18 05:10 10/26/18 05:10 Labs: Laboratory Results - last 24 hr 10/26/18 10/26/18 05:10 05:10 WBC 7.4 RBC 3.96 L Hgb 12.9 Hct 39.1 MCV 98.8 MCH 32.6 MCHC 33.0 RDW 15.3 H Plt Count 233 Neut % (Auto) 67.9 Lymph % (Auto) 14.2 L Donley % (Auto) 14.9 H Eos % (Auto) 2.2 Baso % (Auto) 0.8 Neut # (Auto) 5000 Sodium 140 Potassium 4.2 Chloride 100 Carbon Dioxide 33 H BUN 17 Creatinine 0.80 Estimated GFR > 60.0 BUN/Creatinine Ratio 21.3 Glucose 95 Calcium 9.0 Assessment & Plan Plan: Assessment/Plan Narrative: IMPRESSION AND PLAN ATRIAL FIBRILLATION WITH RAPID VENTRICULAR RATE. HEART RATE IS WELL CONTROLLED AT THIS TIME. THE PATIENT IS NO LONGER ON A DRIP. SHE WAS RESTARTED ON HER ORAL MEDICATIONS. SHE APPEARED TO BE TOLERATING WELL. HOWEVER NURSING REPORTED LOWER BLOOD PRESSURE AND HEART RATE THAN USUAL. HER MEDICATION WILL BE ON HOLD THIS P.M.. WE WILL DECREASE HER MEDICATION DOSES WELL. WE WILL ATTEMPT TO RESTART HER ON A MEDICATION TO BALL AT LOWER DOSE IF POSSIBLE. PATIENT TO [employer] AT ALL TIMES. REPEAT EKG IN THE MORNING IF INDICATED. ADDITIONAL MILD RETICULAR CLINICALLY POSSIBLE PNEUMONIA. ATYPICAL PNEUMONIA SUSPECTED. CONTINUE CURRENT ANTIBIOTICS. GET SPUTUM CULTURES; NO ANTIBIOTICS INDICATED AT THIS TIME. MONITOR CLOSELY WITH SERIAL ABG AND CHEST X-RAY INDICATED OBESITY. MORBID IN NATURE. LIFESTYLE CHANGES RECOMMENDED. OUTPATIENT MANAGEMENT. HYPERTENSION PER HISTORY. PATIENT WILL BE RESTARTED ON ALL HOME MEDICATIONS. FOLLOW CLOSELY AND ADJUST MANAGEMENT INDICATED POSSIBLE FLUID OVERLOAD. THIS IS IMPROVING AT THIS POINT. EJECTION FRACTION IS ABOUT 6 5%. SOME LEFT ATRIUM DILATION NOTED. MONITOR CLOSELY. OUTPATIENT MANAGEMENT INDICATED ELEVATED TROPONIN. LIKELY DEMAND ISCHEMIA. TROPONIN LEVEL HAS BEEN DECREASING SINCE ADMISSION. MONITOR CLOSELY. WILL ATTEMPT TO DISCHARGE IN NEXT 24 HR THE PATIENT REMAINS STABLE. NETTA CURRENT TREATMENT FOR NOW
[2018-10-26] MEDS: ATORVASTATIN 20 MG TABLET 40 MG PO (22:06)
--- NOTE | 2018-10-26 22:19 | PC.NURSE ---
Pt reports having trouble with word finding for the past 4-6 weeks. States that it comes and goes. Also has concerns with short term memory loss. PERRLA, no facial droop, strength equal bilaterally. NIHSS unremarkable. Family states this is not a new finding. Will address with MD in AM. Pt described multiple instances of med noncompliance, started taking metoprolol 300mg only at night instead of 200mg BID because she doesn't want to have to take pills twice a day also reports doubling dose of lexapro one evening last week because she was going to dinner with friends that annoy her, ended up driving home and ending up on private property unaware of where she was. Explained importance of following prescription instructions closely, pt needs reinforcement. Family has concerns that pt is not safe to manage medications by herself any longer.
[2018-10-27 00:20] VITALS: BP 114/61; PULSE 89; RESP 16; TEMP 36.9; O2SAT 91
[2018-10-27 05:00] VITALS: BP 118/53; PULSE 75; RESP 20; TEMP 36.8; O2SAT 92
[2018-10-27 08:06] VITALS: BP 111/67; PULSE 70; RESP 17; TEMP 37; O2SAT 92
[2018-10-27 08:17] VITALS: O2SAT 95
--- NOTE | 2018-10-27 08:23 | P.DS_ITS ---
History of Present Illness Date Patient Seen: 10/27/18 Time Patient Seen: 08:00 Chief complaint: trouble breathing, diarrhea Narrative: 77-year-old female with known past medical history of atrial fibrillation on multiple therapy as well as anticoagulation, hyperlipidemia, hypertension, questionable heart failure, depression/anxiety presented to emergency department with shortness of breath. Patient states that her has been at [facility] for the past 2 weeks due to bypass surgery, and patient has been visiting him on the daily basis and living in the hotel near the hospital. Because of frequent visitations and constant traveling, patient has stopped taking all her medications over week ago due to no time. About 4 days ago patient started noticing increasing shortness of breath. She has also noticed palpitations that would occur on and off for the past 4 days, that would go away in their own. Patient denies any loss of consciousness, blurry vision, dizziness. Patient denies any cough or mucus per day section. Patient denies any chest pain. Patient denies any nausea, vomiting caused abdominal pain, constipation, however states that she has been having loose stools for the past 4 days. The stools are nonbilious nonbloody, non melenic, not volumous, more formed, and occur once or twice a day. Patient denies any symptoms. Of note patient did state that she has makes her antidepressive medications with alcohol 2 days ago which has resulted in remote memory loss and action of events the patient does not recall. In the emergency department patient's vital signs revealed tachycardia with heart rate between 130-150. Although patient was tachypneic and 12/20/2021, she was saturating 96-97% on room air. Blood pressure was 141/103. She was afebrile. Patient was given Cardizem IV push with subsequent drop in heart rate to 90s. Prior to patient being discharged, however, her heart rate went back up to 130s-150s. She was placed on Cardizem drip. Lab workup revealed WBCs 9.1, hemoglobin 13.8, hematocrit 41.3, platelets 252. Sodium 144, potassium 4.4, chloride 101, carbon dioxide 30, BUN 13, creatinine 0.7, glucose 92. LFTs within normal range. Troponin slightly elevated at 0.059. BNP slightly elevated at 391. EKG showed AFib with RVR however no ST changes. Chest x-ray revealed no pleural effusions or pneumothorax but moderate diffuse coarse interstitial pulmonary opacity, consistent with moderate atypical pneumonia. Patient was admitted to ICU for further management of AFib with RVR and atypical pneumonia. Discharge Providers Date of admission: 10/24/18 15:03 Primary care physician: Pete Smalls MD Consults: 10/24/18 16:11 Consult to Respiratory Therapy Evaluate & Treat Comment: SOB, MAY NEED DUONEBS Physician Instructions: Evaluate and treat 10/24/18 16:23 Consult to Ict Quality Assurance Engineer Routine Comment: Discharge provider: Chloe Diane DO Discharge Date: 10/27/18 Summary Discharge Diagnosis: DKA RESOLVED ATRIAL FIBRILLATION WITH RAPID VENTRICULAR RATE POSSIBLE ?SHE ACQUIRED PNEUMONIA POSSIBLE MEDICAL NONCOMPLIANCE OBESITY HYPERTENSION MILD FLUID OVERLOAD ELEVATED TROPONIN Hospital Course: PATIENT ADMITTED TO HOSPITAL WEIGHT SHORTNESS OF BREATH SHE WAS FOUND TO BE IN ATRIAL FIBRILLATION WITH RAPID VENTRICULAR RATE. SHE WAS STARTED ON CARDIZEM DRIP WHICH HELPED CONTROL PATIENT'S HEART RATE SHE WAS SUBSEQUENTLY STARTED ON ORAL MEDICATIONS AND HER HEART RATE REMAINED STABLE. HER BLOOD PRESSURE AND HEART RATE HOWEVER REMAINED ON THE LOW SIDE. I DID INSTRUCT THE PATIENT TO HOLD HER MEDICATION FOR THE NEXT 24-48 HOURS PRIOR TO RESTARTING THEM SHE DID NOT SHOWED ANY SIGN OF RESPIRATORY DISTRESS AT TIME OF DISCHARGE HOWEVER SHE WAS SUSPECTED TO HAVE A MILD PNEUMONIA. SHE WAS DISCHARGED WITH LEVAQUIN SHE WAS CONTINUED ON LASIX. HER BLOOD PRESSURE MEDICATIONS NAMELY METOPROLOL DECREASED TO 100 MG B.I.D. INSTEAD OF 200 MG HER CARDIZEM WAS ALSO DECREASE TO 240 MG DAILY HER LISINOPRIL AND DIGOXIN KEPT AT ORIGINAL DOSES EXTENSIVE COUNSELING WAS GIVEN REGARDING COMPLIANCE WITH MEDICAL THERAPY I DID SHOW MANAGEMENT DEFERRED TO OUTPATIENT PROVIDERS Status at Discharge Cognitive/behavioral status at discharge: STABLE TO HOME Functional status at discharge: independent ambulation Overall status at discharge: patient is back to baseline Time Spent with Patient Greater than 30 minutes Exam Vital Signs (past 8 hours): - 10/27/18 05:00 10/27/18 08:06 Temperature 98.2 F 98.6 F Pulse Rate 75 70 Respiratory Rate 20 17 Blood Pressure 118/53 L 111/67 Pulse Oximetry 92 92 Oxygen Delivery Method Room Air Oxygen Flow Rate 2 Narrative Exam Narrative: NO ACUTE DISTRESS. PATIENT IS ALERT ORIENTED X3. VITAL SIGNS STABLE HEAD ATRAUMATIC NORMOCEPHALIC NECK : SUPPLE WITHOUT ADENOPATHY EYE: EOMI, PERRLA, NORMAL CONJUNCTIVA CHEST: REGULAR RATE.. NO RUBS. PMI IS NON DISPLACED. 1/6 SYSTOLIC MURMUR NOTED ON THE 2ND INTRACOSTAL IN THE RIGHT PULMONARY DECREASED BS OVER THE BASES. MILD BIBASILAR CRACKLES NOTED; NO INCREASED DULLNESS TO PERCUSSION EXTREMITIES: 1+ EDEMA. NONPITTING. NO CYANOSIS CLUBBING NOTED. NEURO: CRANIAL NERVES 2-12 GROSSLY INTACT. NO FOCAL NEUROLOGICAL DEFICIT NOTED. MSK: NORMAL RANGE OF MOTION FOR AGE. NO JOINT EFFUSION. SKIN: NORMAL FOR ETHNICITY; NO ECCHYMOSIS. NO LESION. FAIR TURGOR. : NORMAL EXTERNAL GENITALIA. PSYCH : APPROPRIATE MOOD AND AFFECT. ALERT AWAKE ORIENTED X3 Objective Labs Result Diagrams: 10/26/18 05:10 10/26/18 05:10 Discharge Plan Discharge Plan Patient Disposition: Home Discharge comment: dc to home act as simon cardiac diet f/u with PCP and Cardio 3-10 days patient to hold her metoprolol and Cardizem for today unless hr is >80 and bp> 130/80. instruct patient to take meds one at the time and to wait 30 mins to 1 hr prior to take next if vitals are adequate. Discharge Med Rec/Prescriptions Prescriptions: New metoprolol succinate 50 mg Tablet Extended Release 24 Hr 50 mg PO BID Qty: 60 RF: 0 levofloxacin [Levaquin] 750 mg tablet 750 mg PO DAILY 7 Days Qty: 7 RF: 0 diltiazem HCl 180 mg Capsule,Extended Release 24hr 180 mg PO DAILY Qty: 90 RF: 0 Continue sulfasalazine 500 MG tablet 1,000 mg PO BID Qty: 0 RF: 0 digoxin [Lanoxin] 125 MCG tablet 0.125 mg PO QDAY Qty: 0 RF: 0 furosemide 40 MG tablet 40 mg PO QDAY Qty: 0 RF: 0 atorvastatin [Lipitor] 40 MG tablet 40 mg PO QDAY Qty: 0 RF: 0 spironolactone 25 MG tablet 12.5 mg QDAY Qty: 0 RF: 0 potassium chloride [Klor-Con 10] 10 MEQ tablet extended release 20 meq PO QD-BID Qty: 0 RF: 0 aspirin 81 MG tablet,delayed release (DR/EC) 81 mg PO QDAY Qty: 0 RF: 0 escitalopram oxalate 10 mg Tablet 10 mg PO DAILY RF: 0 lisinopril [Prinivil] 5 mg Tablet 2.5 mg PO DAILY RF: 0 diphenhydramine-acetaminophen [Tylenol PM Extra Strength] 25-500 mg Tablet 1 tab PO BEDTIME PRN (Reason: Sleep) RF: 0 cranberry fruit concentrate [cranberry] 450 mg Tablet 450 mg PO DAILY RF: 0 cholecalciferol (vitamin D3) [Vitamin D3] 2,000 unit Capsule 2,000 unit PO DAILY RF: 0 rivaroxaban 20 mg Tablet 20 mg PO QPM RF: 0 Discontinued diltiazem HCl 60 mg Capsule,Extended Release 12 Hr 360 mg PO QDAY Qty: 0 RF: 0 metoprolol succinate 100 mg Tablet Extended Release 24 Hr 200 mg PO BID RF: 0 Follow up/Referrals: Pete Smalls MD [Primary Care Provider] - (Please follow-up with primary care provider and with cardiology in next 3-10 days.) Provider Discharge Instructions Diet: Low-fat and Low-cholesterol Other treatments: Hold metoprolol and diltiazem today. Check blood pressure and pulse prior to taking medications. Ok to take meds if HR is 80 or above and if blood pressure is at least 130/80. Call primary care provider if you don 't take your meds for 2-3 days. Skin/Wound/Dressing Care Report to your healthcare provider any signs of infection, such as:: chills, fever, night sweats, increased pain and unusual drainage Visit Report/Discharge Packet Instructions: DI for Atrial Fibrillation, Metoprolol, Diltiazem, Levofloxacin Visit Report Forms: Stroke Signs & Symptoms Discharge Data Primary Care Provider: Pete Smalls Attending Provider: Stephanie Smith Admit Date/Time: 10/24/18 15:03 Discharges patient from system. Discharge Date/Time: 10/27/18 12:20
[2018-10-27] MEDS: CHOLECALCIFEROL (VITAMIN D3) 1,000 UNIT TABLET 2000 UNIT PO (08:35)
[2018-10-27] MEDS: POTASSIUM CHLORIDE 20 MEQ TAB PO (08:35)
[2018-10-27] MEDS: ASPIRIN EC 81 MG TABLET PO (08:35)
[2018-10-27] MEDS: ESCITALOPRAM 10 MG TABLET PO (08:59)
--- NOTE | 2018-10-27 12:31 | PC.NURSE ---
Discharge Note Pt discharged to home with saul at 1220. Escorted to hospital exit via wheelchair. Discharge instructions given on afib, levaquin, diltiazem, and metoprolol. Extensive teaching given on medications, their uses, and administration schedule. Pt reports she has a BP machine at home and will take BP and pulse prior to taking medications. However, pt became repetitive with her questions and forgetful concerning teaching - reinforced multiple times and also went over medication regimen with saul (who lives with pt) prior to d/c. Saul acknowledged understanding. Pt and nahomi to make follow-up appointment with PCP in the next week.
--- NOTE | 2018-10-27 12:57 | CM.DPC ---
DCP: continued: case received; discussed in Team Rounds. Hospitalist stated that pt was ready for d/c home today. EMR reviewed and noted the ongoing concerns by ICU nursing team re pt's understanding and compliance with medications. Met then with pt to check in re her d/c plan with idea to look at RN for medication management if she is homebound. Introduced self and role. Honey, I am going out to get my hair done today as soon as I get out of here. I am not homebound and I don't want anything to do with anyone coming to the house. Pt does says she will followup with her PCP Dr. You and my great banquet manager, Dr. Beckwith. RN Arcenio says she is aware of the concerns re medication management and my student and I are going to spend quite a bit of time going over everything with her. Pt confirms her 24 yr old grandson Garcia will be here to pick her up today.
== END 2018-10-31 13:15 | DRG 308 ==
LOC: ED 14:51 → ICU 10-25 09:32 → AC 09-20 12:04 → ICU 09-20 12:04
PROVIDERS: Nurse Practitioner Gerontology; Admitting Provider Internal Medicine; Emergency Provider Emergency Medicine; PCP Family Medicine; Visit Provider Internal Medicine
DX: I48.91 Unspecified atrial fibrillation (principal); J18.9 Pneumonia, unspecified organism; I63.40 Cerebral infarction due to embolism of unspecified cerebral artery; Z68.42 Body mass index [BMI] 45.0-49.9, adult; I24.8 Other forms of acute ischemic heart disease; Z68.41 Body mass index [BMI] 40.0-44.9, adult; G93.49 Other encephalopathy; N17.9 Acute kidney failure, unspecified; Z79.01 Long term (current) use of anticoagulants; I10 Essential (primary) hypertension; E66.9 Obesity, unspecified; E87.70 Fluid overload, unspecified; E78.5 Hyperlipidemia, unspecified; F32.9 Major depressive disorder, single episode, unspecified; Z87.891 Personal history of nicotine dependence; Z91.128 Patient's intentional underdosing of medication regimen for other reason; R09.02 Hypoxemia; E66.01 Morbid (severe) obesity due to excess calories; F41.9 Anxiety disorder, unspecified
CPT/HCPCS: 36415; 36591; 36600; 70450; 70553; 71045; 80048; 80053; 80061; 80162; 80305; 80320; 81001; 82140; 82805; 82962; 83690; 83880; 84145; 84443; 84484; 85025; 85610; 85730; 87040; 87449; 87797; 87798; 92610; 93005; 93306; 94760; 94762; 96125; 96365; 96367; 96368; 96375; 97116; 97162; 97165; 97530; 99284; 99285; A9579; J1200; J1630; J1956; J2060

== ENCOUNTER 2018-10-27 17:54 | Inpatient (IN) | payer MEDICARE, OTHER, SELFPAY ==
[2018-10-24 16:23] VITALS: BMI 47.0
[2018-10-27] MEDS: LORazepam 2 MG/ML SYRINGE IM ×2 (18:30→20:10)
[2018-10-27] MEDS: diphenhydrAMINE 50 MG/ML VIAL IM (18:30)
--- NOTE | 2018-10-27 18:39 | ED.AMS ---
HPI - Altered Mental Status General Chief Complaint: Altered Mental Status Stated Complaint: CONFUSION Time Seen by Provider: 10/27/18 18:09 Source: family ( Grandson and and ) Mode of arrival: ambulatory Limitations: altered mental status History of Present Illness HPI narrative: patient is a 77-year-old female who I evaluated here in the emergency department a couple days ago and admitted her for atrial fibrillation with RVR. She was discharged earlier today. Patient is here in the emergency department with her grandson. The grandson tells me that they were standing in the line at the grocery store waiting to order picker/assembler medications when he stated that she became acutely confused. He did not report any weakness or facial droop. He did state that she became somewhat hostile towards him asking her questions. He got her to come to the emergency department. She reports no symptoms. Related Data Home Medications Medication Instructions Recorded Confirmed aspirin 81 mg PO QDAY #0 06/16/17 10/28/18 atorvastatin [Lipitor] 40 mg PO QDAY #0 06/16/17 10/28/18 digoxin [Lanoxin] 0.125 mg PO QDAY #0 06/16/17 10/28/18 furosemide 40 mg PO QDAY #0 06/16/17 10/28/18 potassium chloride [Klor-Con 10] 20 meq PO QD-BID #0 06/16/17 10/28/18 spironolactone 12.5 mg QDAY #0 06/16/17 10/28/18 sulfasalazine 1,000 mg PO BID #0 06/16/17 10/28/18 cholecalciferol (vitamin D3) 2,000 unit PO DAILY 10/24/18 10/28/18 [Vitamin D3] cranberry fruit concentrate 450 mg PO DAILY 10/24/18 10/28/18 [cranberry] diphenhydramine-acetaminophen 1 tab PO BEDTIME PRN 10/24/18 10/28/18 [Tylenol PM Extra Strength] escitalopram oxalate 10 mg PO DAILY 10/24/18 10/28/18 lisinopril [Prinivil] 2.5 mg PO DAILY 10/24/18 10/28/18 rivaroxaban 20 mg PO QPM 10/24/18 10/28/18 Previous Rx's Medication Instructions Recorded diltiazem HCl 180 mg PO DAILY #90 cap 10/27/18 levofloxacin [Levaquin] 750 mg PO DAILY 7 Days #7 tab 10/27/18 metoprolol succinate 50 mg PO BID #60 tab 10/27/18 Allergies Allergy/AdvReac Type Severity Reaction Status Date / Time No Known Drug Allergies Allergy Verified 10/26/18 11:20 Review of Systems Review of Systems Patient's grandson reports that the patient became acutely confused. Patient reports no symptoms. unobtainable due to mental condition Exam Initial Vital Signs Initial Vital Signs: Vital Signs Pulse Rate 120 H 10/27/18 20:52 Respiratory Rate 24 10/27/18 20:52 Blood Pressure 150/103 H 10/27/18 20:52 Pulse Oximetry 94 10/27/18 20:52 Const General: No cooperative, comfortable, well groomed, No acute distress, combative, No ill appearing and No lethargic Orientation: alert, awake, oriented to person, not oriented to place, not oriented to time and confused Limitations: altered mental status HENMT Head: normal to inspection and normocephalic Eyes General: appearance normal, both eyes and all related structures Resp Effort & Inspection: normal respiratory effort Cardio Rate: regular rate Rhythm: regular rhythm GI Inspection: non-distended Skin Rashes: no rashes Neuro General: alert, awake, moves all extremities, no focal motor deficits and confused Cognition: abnormal cognition ( ) Speech: speech normal Gait: normal gait Motor: muscle tone normal throughout Extrem General: normal to inspection and capillary refill normal Scores ABCD2 Age >= 60 years: yes Initial BP. Either SBP >= 140 or DBP >= 90.: no Clinical features of the TIA: other symptoms Duration of symptoms: >= 60 minutes History of diabetes: no ABCD2 Score: 3 GCS Moore coma scale eye opening: Spontaneous Moore coma scale verbal response: Confused Moore coma scale motor response: Obey commands Ashlyn coma scale total score: 14 Course Orders Ordered: ED Orders 10/27/18 18:38 CT head/brain wo con Stat EKG-12 Lead Stat 10/27/18 19:00 Complete Blood Count AUTO DIFF Stat Comprehensive Metabolic Panel Stat Ethanol (ETOH) Stat Lipase Stat Partial Thromboplastin Time Stat Procalcitonin Stat Prothrombin Time INR Stat Thyroid Stimulating Hormone Stat 10/27/18 19:30 Ammonia (NH3) Stat 10/27/18 20:40 Urinalysis and Microscopic Stat 10/27/18 21:10 Digoxin Stat 10/27/18 21:30 urine tox [Urine Drug Screen, Rapid] Stat 10/28/18 MR stroke Routine 10/28/18 00:59 Complete Blood Count AUTO DIFF Routine 10/28/18 02:48 Arterial Blood Gas Stat 10/28/18 02:49 Blood Culture Stat 10/28/18 06:00 Basic Metabolic Panel Routine Aspirin (Aspirin Ec) 81 mg PO QDAY [facility] Atorvastatin Calcium (Lipitor) 40 mg PO QDAY [facility] Dextrose (D50w) 12.5 gm IV NOW ONE Stop: 10/28/18 03:24 Digoxin (Lanoxin) 0.125 mg PO QDAY [facility] Escitalopram Oxalate (Lexapro) 10 mg PO DAILY [facility] Furosemide (Lasix) 40 mg PO QDAY [facility] Sodium Chloride (Normal Saline 0.9%) 1,000 mls @ 125 mls/hr IV CONT CARISSA Last Infusion: 10/28/18 02:35 Dose: 0 mls/hr Admin: 10/28/18 02:05 Dose: 125 mls/hr Admin: 10/27/18 22:58 Dose: Sodium Chloride (Normal Saline 0.9%) 500 mls @ 500 mls/hr IV BOLUS ONE Stop: 10/28/18 03:34 Last Admin: 10/28/18 02:35 Dose: 500 mls/hr Levofloxacin (Levaquin) 750 mg PO DAILY [facility] Rivaroxaban (Xarelto) 20 mg PO QPM [facility] Spironolactone (Aldactone) 12.5 mg PO QDAY [facility] Sulfasalazine (Azulfidine) 1,000 mg PO BID [facility] Vitamin D (Vitamin D3) 2,000 unit PO DAILY [facility] Discontinued Medications Diphenhydramine HCl (Benadryl) 50 mg IM NOW ONE Stop: 10/27/18 18:36 Last Admin: 10/27/18 18:30 Dose: 50 mg Haloperidol (Haldol) 5 mg IM NOW ONE Stop: 10/27/18 18:36 Last Admin: 10/27/18 19:52 Dose: 5 mg Lorazepam (Ativan) 2 mg IM NOW ONE Stop: 10/27/18 18:36 Last Admin: 10/27/18 18:30 Dose: 2 mg Lorazepam (Ativan) 2 mg IM NOW ONE Stop: 10/27/18 20:05 Last Admin: 10/27/18 20:10 Dose: 2 mg Vital Signs - 8 hr 10/27/18 20:52 10/27/18 22:00 10/27/18 22:12 Temperature Pulse Rate 120 H 116 H 110 H Respiratory Rate 24 18 13 Blood Pressure Blood Pressure [Right Wrist] 150/103 H 96/70 Pulse Oximetry 94 94 10/27/18 23:00 10/28/18 01:41 Temperature 99.1 F 97.9 F Pulse Rate 104 H 106 H Respiratory Rate 18 Blood Pressure 117/66 111/78 Blood Pressure [Right Wrist] Pulse Oximetry 93 95 MDM - Altered Mental Status Lab Data Attestation: I reviewed the patient's lab results. Result diagrams: 10/27/18 19:00 10/27/18 19:00 Lab Results 10/27/18 10/27/18 10/27/18 Range/Units 19:00 19:00 19:00 WBC 9.7 (4.5-11.0) X10^3/uL RBC 4.39 (4.0-5.2) X10^6/uL Hgb 14.1 (12.0-16.0) g/dL Hct 43.4 (36-46) % MCV 98.9 (80-100) fL MCH 32.1 (26-34) PG MCHC 32.5 (30-36) % RDW 15.5 H (11.6-14.8) % Plt Count 313 (150-400) X10^3/uL Neut % (Auto) 73.1 (50-75) % Lymph % (Auto) 13.0 L (25-40) % [place] % (Auto) 12.3 (3-14) % Eos % (Auto) 1.0 L (2-4) % Baso % (Auto) 0.6 (0-2) % Neut # (Auto) 7100 H (4481-4116) /uL PT 30.8 H D (10.1-12.7) SECONDS INR 2.8 H (0.9-1.3) APTT 37 H D (26.4-36.2) SECONDS Sodium (137-145) mmol/L Potassium (3.4-5.1) mmol/L Chloride (98-107) mmol/L Carbon Dioxide (22-32) mmol/L BUN (7-17) mg/dL Creatinine (0.52-1.04) mg/dL Estimated GFR (>60) mL/min BUN/Creatinine Ratio (6-22) Glucose (80-110) mg/dL Calcium (8.4-10.2) mg/dL Total Bilirubin (0.2-1.3) mg/dL AST (14-36) IU/L ALT (9-52) IU/L Alkaline Phosphatase (38-126) U/L Ammonia (9-30) umol/L Total Protein (6.3-8.2) g/dL Albumin (3.5-5.0) g/dL Globulin (1.7-4.1) g/dL Albumin/Globulin Ratio (1.0-2.8) Lipase (23-300) U/L Procalcitonin < 0.05 (<0.5) ng/mL TSH (0.47-4.68) uIU/mL Urine Color Urine Appearance Urine pH (4.5-8.0) Ur Specific [place] (1.000-1.035) Urine Protein (Negative) Urine Glucose (UA) (Normal) g/dL Urine Ketones (NEGATIVE) Urine Occult Blood (Negative) Urine Nitrate (Negative) Urine Bilirubin (NEGATIVE) Urine Urobilinogen (0.2) E.U./dL Ur Leukocyte Esterase (NEGATIVE) Urine RBC (0-5/HPF) Urine WBC (0-5/HPF) Ur Squamous Epith Cells Urine Bacteria (None) Urine Mucus (Negative) Ur Culture Indicated? Micro UA Comment Digoxin (0.8-2.0) ng/mL Urine Opiates Screen (Negative) Ur Oxycodone Screen (Negative) Urine Methadone Screen (Negative) Ur Barbiturates Screen (Negative) U Tricyclic Antidepress (Negative) Ur Phencyclidine Scrn (Negative) Ur Amphetamines Screen (Negative) U Methamphetamines Scrn (Negative) Ur MDMA Scrn (Ecstasy) (Negative) U Benzodiazepines Scrn (Negative) Urine Cocaine Screen (Negative) U Marijuana (THC) Screen (Negative) Ethyl Alcohol mg/dL 10/27/18 10/27/18 10/27/18 Range/Units 19:00 19:00 19:30 WBC (4.5-11.0) X10^3/uL RBC (4.0-5.2) X10^6/uL Hgb (12.0-16.0) g/dL Hct (36-46) % MCV (80-100) fL MCH (26-34) PG MCHC (30-36) % RDW (11.6-14.8) % Plt Count (150-400) X10^3/uL Neut % (Auto) (50-75) % Lymph % (Auto) (25-40) % [place] % (Auto) (3-14) % Eos % (Auto) (2-4) % Baso % (Auto) (0-2) % Neut # (Auto) (5468-8464) /uL PT (10.1-12.7) SECONDS INR (0.9-1.3) APTT (26.4-36.2) SECONDS Sodium 142 (137-145) mmol/L Potassium 4.1 (3.4-5.1) mmol/L Chloride 96 L (98-107) mmol/L Carbon Dioxide 33 H (22-32) mmol/L BUN 18 H (7-17) mg/dL Creatinine 1.00 (0.52-1.04) mg/dL Estimated GFR 53.8 L (>60) mL/min BUN/Creatinine Ratio 18.0 (6-22) Glucose 101 (80-110) mg/dL Calcium 9.6 (8.4-10.2) mg/dL Total Bilirubin 0.6 (0.2-1.3) mg/dL AST 36 (14-36) IU/L ALT 23 (9-52) IU/L Alkaline Phosphatase 80 (38-126) U/L Ammonia < 9.0 L (9-30) umol/L Total Protein 7.8 (6.3-8.2) g/dL Albumin 4.3 (3.5-5.0) g/dL Globulin 3.5 (1.7-4.1) g/dL Albumin/Globulin Ratio 1.2 (1.0-2.8) Lipase 51 D (23-300) U/L Procalcitonin (<0.5) ng/mL TSH 2.02 (0.47-4.68) uIU/mL Urine Color Urine Appearance Urine pH (4.5-8.0) Ur Specific [place] (1.000-1.035) Urine Protein (Negative) Urine Glucose (UA) (Normal) g/dL Urine Ketones (NEGATIVE) Urine Occult Blood (Negative) Urine Nitrate (Negative) Urine Bilirubin (NEGATIVE) Urine Urobilinogen (0.2) E.U./dL Ur Leukocyte Esterase (NEGATIVE) Urine RBC (0-5/HPF) Urine WBC (0-5/HPF) Ur Squamous Epith Cells Urine Bacteria (None) Urine Mucus (Negative) Ur Culture Indicated? Micro UA Comment Digoxin (0.8-2.0) ng/mL Urine Opiates Screen (Negative) Ur Oxycodone Screen (Negative) Urine Methadone Screen (Negative) Ur Barbiturates Screen (Negative) U Tricyclic Antidepress (Negative) Ur Phencyclidine Scrn (Negative) Ur Amphetamines Screen (Negative) U Methamphetamines Scrn (Negative) Ur MDMA Scrn (Ecstasy) (Negative) U Benzodiazepines Scrn (Negative) Urine Cocaine Screen (Negative) U Marijuana (THC) Screen (Negative) Ethyl Alcohol < 10 mg/dL 10/27/18 10/27/18 10/27/18 Range/Units 20:40 21:10 21:30 WBC (4.5-11.0) X10^3/uL RBC (4.0-5.2) X10^6/uL Hgb (12.0-16.0) g/dL Hct (36-46) % MCV (80-100) fL MCH (26-34) PG MCHC (30-36) % RDW (11.6-14.8) % Plt Count (150-400) X10^3/uL Neut % (Auto) (50-75) % Lymph % (Auto) (25-40) % [place] % (Auto) (3-14) % Eos % (Auto) (2-4) % Baso % (Auto) (0-2) % Neut # (Auto) (6227-9906) /uL PT (10.1-12.7) SECONDS INR (0.9-1.3) APTT (26.4-36.2) SECONDS Sodium (137-145) mmol/L Potassium (3.4-5.1) mmol/L Chloride (98-107) mmol/L Carbon Dioxide (22-32) mmol/L BUN (7-17) mg/dL Creatinine (0.52-1.04) mg/dL Estimated GFR (>60) mL/min BUN/Creatinine Ratio (6-22) Glucose (80-110) mg/dL Calcium (8.4-10.2) mg/dL Total Bilirubin (0.2-1.3) mg/dL AST (14-36) IU/L ALT (9-52) IU/L Alkaline Phosphatase (38-126) U/L Ammonia (9-30) umol/L Total Protein (6.3-8.2) g/dL Albumin (3.5-5.0) g/dL Globulin (1.7-4.1) g/dL Albumin/Globulin Ratio (1.0-2.8) Lipase (23-300) U/L Procalcitonin (<0.5) ng/mL TSH (0.47-4.68) uIU/mL Urine Color Yellow Urine Appearance Clear Urine pH 7.0 (4.5-8.0) Ur Specific [place] 1.015 (1.000-1.035) Urine Protein Negative (Negative) Urine Glucose (UA) Negative (Normal) g/dL Urine Ketones Negative (NEGATIVE) Urine Occult Blood 2+ H (Negative) Urine Nitrate Negative (Negative) Urine Bilirubin Negative (NEGATIVE) Urine Urobilinogen 0.2 (0.2) E.U./dL Ur Leukocyte Esterase Negative (NEGATIVE) Urine RBC 5-10/hpf H (0-5/HPF) Urine WBC 1-5/hpf (0-5/HPF) Ur Squamous Epith Cells 0-1 /hpf Urine Bacteria None seen (None) Urine Mucus 1+ H (Negative) Ur Culture Indicated? Not Reportable Micro UA Comment Not Reportable Digoxin 0.6 L (0.8-2.0) ng/mL Urine Opiates Screen Negative (Negative) Ur Oxycodone Screen Negative (Negative) Urine Methadone Screen Negative (Negative) Ur Barbiturates Screen Negative (Negative) U Tricyclic Antidepress Negative (Negative) Ur Phencyclidine Scrn Negative (Negative) Ur Amphetamines Screen Negative (Negative) U Methamphetamines Scrn Negative (Negative) Ur MDMA Scrn (Ecstasy) Negative (Negative) U Benzodiazepines Scrn Negative (Negative) Urine Cocaine Screen Negative (Negative) U Marijuana (THC) Screen Negative (Negative) Ethyl Alcohol mg/dL Point of Care Testing Glucose POC [address] scan - head: Radiologist's impression: [address] [address] [address] Scan Report Signed Patient: Ximena Beckett WMR#: [id number] : 1940Acct:[id number] Age/Sex: 77 / FDate of Service: 10/27/18 Loc: ED Accession Number: [id number] Procedure: CT head/brain wo con Ordering Provider: Marcos Roy D.O. PROCEDURE: CT HEAD/BRAIN WO CON INDICATIONS: Altered mental status TECHNIQUE: Noncontrast 4.5 mm thick angled axial sections acquired from the foramen magnum to the vertex, with coronal and sagittal reformats. For radiation dose reduction, the following was used: automated exposure control, adjustment of mA and/or kV according to patient size. COMPARISON: None. FINDINGS: Image quality: Excellent. CSF spaces: Basal cisterns are patent. No extra-axial fluid collections. The ventricles are symmetric in size and shape. There is mild cerebral volume loss, with resultant ventricular and sulcal prominence. Brain: No intracranial hemorrhage, mass, or mass effect. There are subcortical, periventricular and deep white matter hypodensities consistent with mild to moderate chronic small vessel ischemic changes. There is mild asymmetric hypodensity in the left periventricular region along the left frontal horn. There is intracranial internal carotid artery atherosclerosis. Skull and face: Calvarium and visualized facial bones appear intact, without suspicious lesions. Sinuses: Visualized sinuses and mastoids are clear. IMPRESSION: 1. No definite acute intracranial abnormality. 2. Periventricular white matter hypodensities which are nonspecific but likely represent chronic small vessel ischemic changes. Asymmetric periventricular hypodensity is demonstrated along the left frontal horn. This may represent asymmetric chronic changes but vasogenic edema is not excluded. If clinical concern persists, further evaluation may be obtained with MRI. Dictated by: Sanjeev Yao M.D. on 10/27/2018 at 19:34 Approved by: Sanjeev Yao M.D. on 10/27/2018 at 19:38 ECG Data Attestation: I personally reviewed and interpreted this ECG as follows: Prior ECG tracings: not available for review Interpretation: atrial fibrillation ventricular rate of 115 right bundle branch block normal QRS normal QTC no ST T wave changes MDM Narrative Medical decision making narrative: I was called to the triage room by the triage nurse to evaluate the patient because the patient did not want to stay or be evaluated. The patient was somewhat hostile and combative to my questioning. I told the patient that she needed a answer my questions before I could let her go. She was oriented to person but stated that she was in the hospital. Did not know the time, did not know why she was here in the ER, did not know her address, did not know the year, did not know the president, her grandson was at bedside who stated that she normally knows these facts. I also evaluated her here in the emergency department a couple days ago where she was alert and oriented and today's presentation was certainly different from the prior presentation with regard to her mental status. I felt like she did not have the capacity to make decisions. There was concern that she could potentially be having a stroke secondary to her history of atrial fibrillation. we had the patient's grandson who is here in the emergency department tried to convince the patient to stay. We were even able to have the patient's who is recovering from a cardiovascular event at [facility] talk to the patient on the phone to try to convince her to stay. Both the patient's grandson stated that she was altered and that he was okay for us to restrained the patient to keep her here in the emergency department for evaluation. I also talked with the patient's over the phone and he agreed that the patient needed to be restrained in order to be evaluated. I gave the patient the option to come back to the room under her own will or that I would give her medications so that we could evaluate her. She stated that she would not come back to the room under her own willingness. She was given Benadryl Haldol and Ativan to help facilitate the workup of her acute alteration in mental status. Her labs were unremarkable. Her alcohol level was 0. Ammonia was unremarkable. No signs of infection. I considered other etiologies such as DTs or alcohol withdrawal as the patient has had a DUI in the past. But she has not had any thing to drink since her admission to the hospital a couple days ago and at that time she was not acutely intoxicated. I feel that this is less likely. During her last evaluation here in the emergency department she stated that she did take medication with the alcohol which caused her to not remember certain things. From what I can gather from the patient's grandson she has not had any of these medications recently. A medication reaction his potentially still a cause for these symptoms. The patient was minimally cooperative with a neurologic exam. She has no focal neurologic deficits. She is moving all 4 for extremities. Has no facial abnormalities that can be seen. Her only symptoms seem to be confusion. The head CT shows nothing acute. I did discuss the case with Dr. Foreman the stroke neurologist at [facility] who stated that the patient does need an MRI but does not need to be transferred. He stated that he was not concerned with the comments about potential edema noted on the CT scan. Patient is not a candidate for tPA. Is not a candidate for clot retrieval she has no focal neurologic deficits. I feel that the patient can be admitted to our hospital. She does need an MRI but this does not need to occur in the emergency department. Patient is not hypoglycemic. I do not feel that the patient needs emergent transfer to a stroke center. I do not feel that the patient needs emergent evaluation by a neurologist. I discussed the admission with the patient's grandson who expressed understanding and his consent. Discussed the case with the night hospitalist who will admit the patient. Discharge Plan Departure Patient Disposition: Admitted As Inpatient Clinical Impression: Altered mental status, Atrial fibrillation Discharge Date/Time: 10/27/18 23:10 Interventions: ED Discharge Assessment Last Done: 10/27/18 23:41 Admit Date/Time: 10/27/18 23:40 Admit Provider: Nathaniel Munguia
[2018-10-27 19:09] LABS: Add Manual Diff / Slide Review NO; Basophils Percent Auto 0.6 % (0-2); Hematocrit 43.4 % (36-46); Hemoglobin 14.1 g/dL (12.0-16.0); Mean Corpuscular HGB Conc 32.5 % (30-36); Mean Corpuscular Hemoglobin 32.1 PG (26-34); Mean Corpuscular Volume 98.9 fL (80-100); Monocytes Percent Auto 12.3 % (3-14); Neutrophils Absolute Auto 7100 /uL (3000-5900); Neutrophils Percent Auto 73.1 % (50-75); Platelet Count 313 X10^3/uL (150-400); Red Blood Cell Count 4.39 X10^6/uL (4.0-5.2); Red Cell Distribution Width 15.5 % (11.6-14.8); White Blood Cell Count 9.7 X10^3/uL (4.5-11.0)
[2018-10-27 19:18] LABS: INR 2.8 (0.9-1.3); Prothrombin Time 30.8 SECONDS (10.1-12.7)
[2018-10-27 19:20] LABS: PTT Partial Thromboplastin Tim 37 SECONDS (26.4-36.2)
[2018-10-27 19:21] LABS: Alanine Aminotransferase 23 IU/L (9-52); Albumin 4.3 g/dL (3.5-5.0); Albumin Globulin Ratio 1.2 (1.0-2.8); Alkaline Phosphatase 80 U/L (38-126); Aspartate Aminotransferase 36 IU/L (14-36); Bilirubin Total 0.6 mg/dL (0.2-1.3); Blood Urea Nitrogen 18 mg/dL (7-17); Calcium 9.6 mg/dL (8.4-10.2); Carbon Dioxide 33 mmol/L (22-32); Chloride 96 mmol/L (98-107); Estimated Glomerular Filt Rate 53.8 mL/min (>60); Globulin 3.5 g/dL (1.7-4.1); Glucose 101 mg/dL (80-110); HEMOLYSIS < 15 (0-50); Lipase 51 U/L (23-300); Potassium 4.1 mmol/L (3.4-5.1); Sodium 142 mmol/L (137-145); Total Protein 7.8 g/dL (6.3-8.2)
[2018-10-27 19:32] LABS: Ethanol (ETOH) < 10 mg/dL
[2018-10-27 19:52] LABS: Ammonia (NH3) < 9.0 umol/L (9-30)
[2018-10-27] MEDS: HALOPERIDOL 5 MG/ML VIAL IM (19:52)
[2018-10-27 19:55] LABS: Procalcitonin < 0.05 ng/mL (<0.5)
[2018-10-27 19:57] LABS: Thyroid Stimulating Hormone 2.02 uIU/mL (0.47-4.68)
--- NOTE | 2018-10-27 20:16 | PC.NURSE ---
Pt repeatedly trying to get out of bed. Not oriented to time, place, self or situation. Attempted to change patient's wet brief. Patient becoming agitated and trying to get off stretcher. Provider notified. Ativan given 2mg IM, per order.
[2018-10-27 20:45] LABS: Bacteria Urine None Seen
[2018-10-27 20:51] LABS: Appearance Urine UA CLEAR; Bilirubin Urine UA NEGATIVE (NEGATIVE); Color Urine UA YELLOW; Glucose Urine UA NEGATIVE (Normal); Ketones Urine UA NEGATIVE (NEGATIVE); Leukocyte Esterase Urine UA NEGATIVE (NEGATIVE); Nitrite Urine UA NEGATIVE (Negative); Occult Blood Urine UA 2+ (Negative); Protein Urine UA NEGATIVE (Negative); Specific Gravity Urine UA 1.015 (1.000-1.035); Urobilinogen Urine UA 0.2 E.U./dL (0.2)
[2018-10-27 20:52] VITALS: BP 150/103; PULSE 120; RESP 24; O2SAT 94
[2018-10-27 21:01] LABS: Mucus Urine 1+ (Negative); RBC Urine 5-10/HPF (0-5/HPF); Squamous Epithelial Cell Urine 0-1 /HPF; WBC Urine 1-5/HPF (0-5/HPF)
[2018-10-27 21:41] LABS: Urine Amphetamines Negative (Negative); Urine Barbiturates Negative (Negative); Urine Benzodiazepines Negative (Negative); Urine Cocaine Negative (Negative); Urine MDMA Negative (Negative); Urine Methadone Negative (Negative); Urine Methamphetamines Negative (Negative); Urine Morphine/Opi cutoff 2000 Negative (Negative); Urine Oxycodone Negative (Negative); Urine Phencyclidine Negative (Negative); Urine Tetrahydrocannabinol Negative (Negative); Urine Tricyclic Antidepressant Negative (Negative)
[2018-10-27 22:00] VITALS: PULSE 116; RESP 18
[2018-10-27 22:01] LABS: Digoxin 0.6 ng/mL (0.8-2.0)
[2018-10-27 22:12] VITALS: BP 96/70; PULSE 110; RESP 13; O2SAT 94
[2018-10-27 23:00] VITALS: BP 117/66; PULSE 104; TEMP 37.3; O2SAT 93
[2018-10-27 23:30] VITALS: BMI 43.2
[2018-10-28] VITALS (11 sets, daily range): BP systolic 95–134; BP diastolic 60–84; PULSE 84–106; RESP 16–20; TEMP 36.3–36.7; O2SAT 88–100
--- NOTE | 2018-10-28 | DI.MRI.S_ITS ---
PROCEDURE: MR STROKE Pre- and post-contrast brain MRI, non-contrast brain MR angiogram, pre- and postcontrast neck MR angiogram INDICATIONS: r/o cva TECHNIQUE: Brain: Noncontrast axial T1 spin echo, axial T2 fast spin echo, sagittal and axial FLAIR, coronal T2 fast spin echo, axial gradient echo, axial diffusion and ADC through the brain. After the administration of contrast, axial 3D VIBE of the cranial vasculature and brain. Brain MRA: Non-contrast 3-D time of flight MR angiogram, with multiple jqmricl-paoiugmfh-jwltyssedx (MIP) reformats performed. Neck MRA: Axial and sagittal TruFISP through the neck. Coronal dynamic MR angiogram during administration of contrast in the arterial and venous phases, with 3-dimenstional kinfrcr-eynlaumcm-vpgshfsuls (MIP) reformats constructed from subtraction images. COMPARISON: [facility], CT, CT HEAD/BRAIN WO CON, 10/27/2018, 18:56. FINDINGS: Image quality: This examination is limited by involuntary motion artifact. BRAIN: CSF spaces: Ventricles are normal in size and shape. Basal cisterns are patent. No extra-axial fluid collections. Brain: Scattered foci of small bilateral diffusion weighted abnormalities can be seen. There is associated dark signal seen on the accompanying ADC maps. Brain parenchymal volume loss is seen. Areas of chronic small vessel ischemic change can be seen, particularly involving the periventricular regions. No intracranial bleeds or mass effects. Dietrich-white matter interface is normal. Brainstem appears normal. Normal intravascular flow voids are present. No abnormal intracranial enhancement. Skull and face: Calvarial marrow signal is normal. Orbits appear normal. Note is made of bilateral lens replacements. Sinuses: Sinuses and mastoids are clear. BRAIN MR ANGIOGRAM: Anterior circulation: Intracranial internal carotid arteries are normal in size and enhancement. The flow within the paired anterior cerebral arteries is otherwise normal and symmetric. The flow within the middle cerebral arteries is normal and symmetric. The anterior communicating artery is seen. No stenoses, occlusions, or aneurysms. Posterior circulation: The visualized portions of the vertebral arteries demonstrate normal caliber, and join to form a normal appearing basilar artery. The flow within the posterior cerebral arteries is normal and symmetric. No stenoses, occlusions, or aneurysms. NECK MR ANGIOGRAM: Carotids: Incidental note is made of a common origin of the right brachiocephalic artery and the left common carotid artery (bovine type arch). This is considered to be a developmental variant of no clinical consequence. The origins of the common carotid arteries appear patent. The calibers of both common carotid arteries are normal. Both proximal internal carotid arteries are tortuous. The bifurcation regions appear normal bilaterally. The internal carotid arteries demonstrate normal course and caliber. Posterior circulation: The origins of the vertebral arteries appear patent. The proximal portions of the vertebral arteries are not well-seen. More superior portions of both vertebral arteries demonstrate normal course and caliber, and join to form a normal appearing basilar artery. Miscellaneous: Subclavian arteries appear patent. Pre-contrast images through the neck show no soft tissue abnormalities. Small bilateral pleural effusions are seen, left more prominent than right. IMPRESSION: BRAIN MRI: Bilateral small foci of diffusion weighted abnormality can be seen. 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 No masses or abnormal enhancement can be seen. Note is made of age-appropriate brain parenchymal volume loss and chronic small vessel ischemic changes. BRAIN MR ANGIOGRAM: No significant intracranial arterial abnormality is seen. NECK MR ANGIOGRAM: No hemodynamically significant stenosis can be seen involving the arteries of the neck. Small bilateral pleural effusions are incidentally noted, left greater than right. Dictated by: Nolberto Don M.D. on 10/28/2018 at 10:55 Approved by: Nolberto Don M.D. on 10/28/2018 at 11:04
--- NOTE | 2018-10-28 01:19 | P.HP_ITS ---
History of Present Illness Date Patient Seen: 10/28/18 Time Patient Seen: 00:38 Chief complaint: CONFUSION Narrative: HPI is provided by patient's grandson. Patient is unable to take part in the HPI due to sedation. The patient is a 77-year-old female w/ PMH of HTN, AFIB, DVT, HLD, depression and anxiety. Patient is being brought to the ED by her grandson out of concern for confusion. Patient was recently hospitalized 10/24 to 10/27, d/ c in past 12-16 hours. Post-discharge patient had an eventful day. Initially, went home for about an hour and was described as idle. Thereafter, went to have her hair worked on. At 3:30 pm was at the pharmacy picking up her meds. While picking up her medications patient was noted to be disoriented and struggling to pay for her items. No unilateral or facial weakness or asymmetry reported by family. Patient did not complain of any pain. She did not complain of palpitations. She did not appear short of breath. She was disoriented and did not know where she was. Patient expressive speech is described as slurred and thought process incoherent. Despite presence of slurring, patient was easily understood. Patient grandson reports that she has been having similar events when she presented initially (10/24) and throughout her most recent hospitalization. Patient was very restless in ED, which did not occur w/ her prior events. Patient's BP and heart rate prior to her most recent discharge noted to be on the lower side, she was instructed to hold her medications for the next 24-48 hours before restarting them ED Work-Up Given aforementioned event, patient was brought to the ED for further evaluation. Per ED physician, there were no apparent focal deficits on presentation. However, patient was noted to be significantly confused. Received a combination of Benadryl / Haldol / Ativan WBC 9.7, HGB 14.1, HCT 43.4, PLT 313 PTT 30.8, INR 2.8, APTT 37 NA 142, K 4.1, CO 96, CO2 33, BUN 18, sCr 1.0, GFR 53.8, Glu 101 Liver enzymes WNL Ammonia < 9.0, TSH 2.02, Procalcitonin <0.05, Digoxin level 0.6 UA microscopic hematuria, 2+ UDS and EtOH level negative Initial VS: T 99.1, BP 150/103, HR 118, RR 24, SaO2 93% 2L O2 Head CT No definite acute intracranial abnormality. No intracranial hemorrhage, mass, or mass effect. Periventricular white matter hypodensities which are nonspecific but likely represent chronic small vessel ischemic changes. Asymmetric periventricular hypodensities demonstrated along the left frontal horn. This may represent asymmetric chronic changes, but vasogenic edema is not excluded. if clinical concern persists, further evaluation may be obtained with MRI. Patient History Medical History Atrial fibrillation (Acute) Atypical pneumonia (Acute) DVT (deep venous thrombosis) (Acute) Hyperlipidemia (Acute) Hypertension (Acute) Depression (Chronic) Surgical History H/O section (Acute) History of appendectomy (Acute) History of cholecystectomy (Acute) No pertinent past surgical history (Acute) Family & Social History Family History: Reviewed 10/28/18 by EDIS Catalan Social History: household members spouse,family Prior Living Arrangements House lives independently Yes Tobacco & Substance use: Smoking Status Former smoker alcohol intake current alcohol intake frequency holiday/special occasion Substance Use Type does not use Meds Home Medications Medication Instructions Recorded Confirmed Type aspirin 81 mg PO QDAY #0 06/16/17 10/28/18 History atorvastatin [Lipitor] 40 mg PO QDAY #0 06/16/17 10/28/18 History digoxin [Lanoxin] 0.125 mg PO QDAY #0 06/16/17 10/28/18 History furosemide 40 mg PO QDAY #0 06/16/17 10/28/18 History potassium chloride [Klor-Con 10] 20 meq PO QD-BID #0 06/16/17 10/28/18 History spironolactone 12.5 mg QDAY #0 06/16/17 10/28/18 History sulfasalazine 1,000 mg PO BID #0 06/16/17 10/28/18 History cholecalciferol (vitamin D3) 2,000 unit PO DAILY 10/24/18 10/28/18 History [Vitamin D3] cranberry fruit concentrate 450 mg PO DAILY 10/24/18 10/28/18 History [cranberry] diphenhydramine-acetaminophen 1 tab PO BEDTIME PRN 10/24/18 10/28/18 History [Tylenol PM Extra Strength] escitalopram oxalate 10 mg PO DAILY 10/24/18 10/28/18 History lisinopril [Prinivil] 2.5 mg PO DAILY 10/24/18 10/28/18 History rivaroxaban 20 mg PO QPM 10/24/18 10/28/18 History diltiazem HCl 180 mg PO DAILY #90 cap 10/27/18 10/28/18 Rx levofloxacin [Levaquin] 750 mg PO DAILY 7 Days #7 tab 10/27/18 10/28/18 Rx metoprolol succinate 50 mg PO BID #60 tab 10/27/18 10/28/18 Rx Allergies Allergy/AdvReac Type Severity Reaction Status Date / Time No Known Drug Allergies Allergy Verified 10/26/18 11:20 Review of Systems Review of Systems unobtainable due to mental status Exam Vital Signs (past 8 hours): - 10/27/18 20:52 10/27/18 22:00 10/27/18 22:12 Temperature Pulse Rate 120 H 116 H 110 H Respiratory Rate 24 18 13 Blood Pressure Blood Pressure [Right Wrist] 150/103 H 96/70 Pulse Oximetry 94 94 10/27/18 23:00 Temperature 99.1 F Pulse Rate 104 H Respiratory Rate Blood Pressure 117/66 Blood Pressure [Right Wrist] Pulse Oximetry 93 Oxygen Delivery Method Nasal Cannula Oxygen Flow Rate 2 Narrative Exam Narrative: Constitutional: Morbidly obese older female; moderately restless, pulling on therapeutic lines Head: NC, AT Eyes: Pupils equal and reactive, unable to evaluate gaze, eyelid resistance present Ears: external ears normal, no otorrhea Nose: external nose normal, no rhinorrhea or epistaxis Throat: Limited exam (resistance to mouth opening), appears dry Neck: no masses, lymphadenopathy, or JVD Chest / Respiratory: equal chest rise, diminished bilaterally, + supplemental O2 / 2L CV: Irregularly irregular, tachycardic 105-110 on telemonitor; no murmur Abdomen / GI: round, + central obesity, NT, ND, + BS, no organomegaly : limited exam, brief present Peripheral / Vascular: warm to touch, 1+ DP, edema 1-2+ bilat Musc: Appears to move all extremities voluntarily, pull against resistance with BUE Skin: no ecchymosis or suspicious lesions / ulcers Neuro: Patient is somewhat restless, partially sedated (received Benadryl, Haldol, Ativan in the ED) Pupils equal and reactive, does not open eyes on command, resistance present when eye lids lifted No facial asymmetry, no unilateral weakness Able to pull against resistance, b/l movement noted of upper and lower extremities No tremor, withdraws to tactile stimuli Does not follow command Patient has not been speaking, does not respond on command Objective Labs Result Diagrams: 10/27/18 19:00 10/27/18 19:00 Labs: Laboratory Results - last 24 hr 10/27/18 10/27/18 10/27/18 19:00 19:00 19:00 WBC 9.7 RBC 4.39 Hgb 14.1 Hct 43.4 MCV 98.9 MCH 32.1 MCHC 32.5 RDW 15.5 H Plt Count 313 Neut % (Auto) 73.1 Lymph % (Auto) 13.0 L Bremer % (Auto) 12.3 Eos % (Auto) 1.0 L Baso % (Auto) 0.6 Neut # (Auto) 7100 H PT 30.8 H D INR 2.8 H APTT 37 H D Sodium Potassium Chloride Carbon Dioxide BUN Creatinine Estimated GFR BUN/Creatinine Ratio Glucose Calcium Total Bilirubin AST ALT Alkaline Phosphatase Ammonia Total Protein Albumin Globulin Albumin/Globulin Ratio Lipase Procalcitonin < 0.05 TSH Urine Color Urine Appearance Urine pH Ur Specific [place] Urine Protein Urine Glucose (UA) Urine Ketones Urine Occult Blood Urine Nitrate Urine Bilirubin Urine Urobilinogen Ur Leukocyte Esterase Urine RBC Urine WBC Ur Squamous Epith Cells Urine Bacteria Urine Mucus Ur Culture Indicated? Micro UA Comment Digoxin Urine Opiates Screen Ur Oxycodone Screen Urine Methadone Screen Ur Barbiturates Screen U Tricyclic Antidepress Ur Phencyclidine Scrn Ur Amphetamines Screen U Methamphetamines Scrn Ur MDMA Scrn (Ecstasy) U Benzodiazepines Scrn Urine Cocaine Screen U Marijuana (THC) Screen Ethyl Alcohol 10/27/18 10/27/18 10/27/18 19:00 19:00 19:30 WBC RBC Hgb Hct MCV MCH MCHC RDW Plt Count Neut % (Auto) Lymph % (Auto) Bremer % (Auto) Eos % (Auto) Baso % (Auto) Neut # (Auto) PT INR APTT Sodium 142 Potassium 4.1 Chloride 96 L Carbon Dioxide 33 H BUN 18 H Creatinine 1.00 Estimated GFR 53.8 L BUN/Creatinine Ratio 18.0 Glucose 101 Calcium 9.6 Total Bilirubin 0.6 AST 36 ALT 23 Alkaline Phosphatase 80 Ammonia < 9.0 L Total Protein 7.8 Albumin 4.3 Globulin 3.5 Albumin/Globulin Ratio 1.2 Lipase 51 D Procalcitonin TSH 2.02 Urine Color Urine Appearance Urine pH Ur Specific [place] Urine Protein Urine Glucose (UA) Urine Ketones Urine Occult Blood Urine Nitrate Urine Bilirubin Urine Urobilinogen Ur Leukocyte Esterase Urine RBC Urine WBC Ur Squamous Epith Cells Urine Bacteria Urine Mucus Ur Culture Indicated? Micro UA Comment Digoxin Urine Opiates Screen Ur Oxycodone Screen Urine Methadone Screen Ur Barbiturates Screen U Tricyclic Antidepress Ur Phencyclidine Scrn Ur Amphetamines Screen U Methamphetamines Scrn Ur MDMA Scrn (Ecstasy) U Benzodiazepines Scrn Urine Cocaine Screen U Marijuana (THC) Screen Ethyl Alcohol < 10 10/27/18 10/27/18 10/27/18 20:40 21:10 21:30 WBC RBC Hgb Hct MCV MCH MCHC RDW Plt Count Neut % (Auto) Lymph % (Auto) Bremer % (Auto) Eos % (Auto) Baso % (Auto) Neut # (Auto) PT INR APTT Sodium Potassium Chloride Carbon Dioxide BUN Creatinine Estimated GFR BUN/Creatinine Ratio Glucose Calcium Total Bilirubin AST ALT Alkaline Phosphatase Ammonia Total Protein Albumin Globulin Albumin/Globulin Ratio Lipase Procalcitonin TSH Urine Color Yellow Urine Appearance Clear Urine pH 7.0 Ur Specific [place] 1.015 Urine Protein Negative Urine Glucose (UA) Negative Urine Ketones Negative Urine Occult Blood 2+ H Urine Nitrate Negative Urine Bilirubin Negative Urine Urobilinogen 0.2 Ur Leukocyte Esterase Negative Urine RBC 5-10/hpf H Urine WBC 1-5/hpf Ur Squamous Epith Cells 0-1 /hpf Urine Bacteria None seen Urine Mucus 1+ H Ur Culture Indicated? Not Reportable Micro UA Comment Not Reportable Digoxin 0.6 L Urine Opiates Screen Negative Ur Oxycodone Screen Negative Urine Methadone Screen Negative Ur Barbiturates Screen Negative U Tricyclic Antidepress Negative Ur Phencyclidine Scrn Negative Ur Amphetamines Screen Negative U Methamphetamines Scrn Negative Ur MDMA Scrn (Ecstasy) Negative U Benzodiazepines Scrn Negative Urine Cocaine Screen Negative U Marijuana (THC) Screen Negative Ethyl Alcohol Assessment & Plan Plan: Assessment/Plan Narrative: Altered Mental Status / Disorientation CT Head negative. H/O AFIB, presented w/ RVR No overt electrolyte abnormalities. sCr mildly elevated from baseline, borderline PIOTR. Mildly prolonged QT interval, 472. Glucose 101. Prior to her most recent admission she was SSRI Recently started on oral Cardizem Patient's BP and heart rate prior to her most recent discharge noted to be on the lower side, she was instructed to hold her medications for the next 24-48 hours before restarting them Ddx: Metabolic anomalies vs TIA/CVA vs delirium vs cardiac causes - hypotension / bradyarrhythmia in lieu of recent medication adjustments - vital signs and neuro checks Q4H - continuous telemetry and pulse ox monitoring - glucose checks Q6H then d/c checks in 24 hr if normal - Diet: NPO, while lethargic/sedated; re-evaluate and advance when patient is more alert - MR per stroke protocol in am - Repeat EKG in am - Hold psychotropic and COURT TRANSCRIBER depressing medications 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 and medications resumed accordingly - will give 1L NS bolus, if HR remains > 100, then will give IV metoprolol 2.5 mg x1 - resume xarelto for anticoagulation - check Trop level will ask nurses to notify provider in a.m. if patient still remains lethargic and unable to take oral pills, at that time will need to consider IV option for some of her medications Hypoxia SpO2 low 80s on room air, at time of exam. Not clear if it is a complication of earlier sedation or if patient has been hypoxic. - continuous O2 monitoring - supplemental oxygen to keep SpO2 > 94% - consider ambulatory and nocturnal O2 evaluation prior to discharge - ABG Essential hypertension BP mildly elevated on presentation; however, patient was also very restless. Normotensive upon arrival to the unit. 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 TEACHER KINDERGARTEN on lisinopril, metoprolol, Lasix, and spironolactone - resume Lasix and spironolactone - lisinopril and metoprolol on hold until patient is seen in am, BP soft Code status reviewed with family Full code. Has formal have directive. DPOA is daughter Carmita. Home medications reviewed and reconciled accordingly DVT PPx: SCDs, on xarelto
[2018-10-28] MEDS: SODIUM CHLORIDE 0.9% 1,000 ML 125 ML IV (02:05)
[2018-10-28] MEDS: SODIUM CHLORIDE 0.9% 500 ML IV (02:35)
[2018-10-28] MEDS: DEXTROSE 50 % IN WATER 25 GM/50 ML SYRINGE IV (03:25)
[2018-10-28] MEDS: METOPROLOL TARTRATE 5 MG/5 ML INJ 2.5 MG IV (05:42)
--- NOTE | 2018-10-28 06:16 | PC.NURSE ---
10/28 0616, Pt grossly unresponsive, will startle and will pull away when extremities are manipulated but responses are jaquez and reverts back to resting state. Pupils are constricted and unresponsive to light, this staff had to manually open eyelids to visualize pupils. Urinary incontinence times 1 this shift. Pulse ox reading 94-98% on 2L NC. Tele reading Afib throughout the night. Blood Glucose (BG) checked at 0318 with 77 reading, 12.5g of 50% Dextrose administered with an increased BG to 130 with the 20min post, recheck. 0600 BG check back down to 83. 1L administered throughout this shift, 500ml Bolus around midnight with the remainder to finish at 75ml per verbal order of ENGINEERING MANAGER ELECTRONICS Ezra. Abnormal ABG reported, ENGINEERING MANAGER ELECTRONICS aware. Lab unable to draw morning labs as pt is an incredibly difficult stick.
[2018-10-28 06:26] LABS: HCO3 ABG 35 mmol/L (22-26); PCO2 ABG 45.8 mmHg (35-45); PO2 ABG 106 mmHg (80-100); TCO2 ABG 36 mmol/L (21-31); pH ABG 7.49 (7.35-7.45)
[2018-10-28 06:27] LABS: Fractionated Inspired Oxygen 28; Oxygen Saturation ABG 98 % (95-100)
[2018-10-28] MEDS: SODIUM CHLORIDE 0.9% 1,000 ML 75 ML IV (06:33)
[2018-10-28 07:33] LABS: Add Manual Diff / Slide Review NO; Basophils Percent Auto 0.9 % (0-2); Eosinophils Percent Auto 2.1 % (2-4); Hematocrit 39.6 % (36-46); Hemoglobin 13.2 g/dL (12.0-16.0); Lymphocytes Percent Auto 12.3 % (25-40); Mean Corpuscular HGB Conc 33.3 % (30-36); Mean Corpuscular Hemoglobin 32.6 PG (26-34); Mean Corpuscular Volume 97.9 fL (80-100); Monocytes Percent Auto 13.6 % (3-14); Neutrophils Absolute Auto 5200 /uL (3000-5900); Neutrophils Percent Auto 71.1 % (50-75); Platelet Count 252 X10^3/uL (150-400); Red Blood Cell Count 4.04 X10^6/uL (4.0-5.2); Red Cell Distribution Width 15.5 % (11.6-14.8); White Blood Cell Count 7.3 X10^3/uL (4.5-11.0)
[2018-10-28 07:36] LABS: Blood Urea Nitrogen 14 mg/dL (7-17); Calcium 8.8 mg/dL (8.4-10.2); Carbon Dioxide 32 mmol/L (22-32); Chloride 99 mmol/L (98-107); Estimated Glomerular Filt Rate > 60.0 mL/min (>60); Glucose 85 mg/dL (80-110); HEMOLYSIS < 15 (0-50); Potassium 3.9 mmol/L (3.4-5.1); Sodium 142 mmol/L (137-145)
[2018-10-28 07:50] LABS: Troponin I 0.062 ng/mL (0.01-0.034)
[2018-10-28] MEDS: DEXTROSE 5%-0.45% NS 1,000 ML 100 ML IV ×2 (08:00→18:49)
--- NOTE | 2018-10-28 08:09 | PC.NURSE ---
Pt is mostly non responsive this morning, showing some signs of grimacing and shoulder shrugging with sternal rub. Pt's eyebrows go up when this nurse calls her name, Ximena! loudly, but pt does not open her eyes or speak. Pt is 0n 2L O2 via nasal cannula as she desaturates when trialed with less O2. Nasal cannula is placed in pt's mouth as she is primarily mouth breathing. LS clear to auscultation. Pt is on tele running Bundle branch block/afib HR 80's-90's. Dr. Cote has been notified. An order for D5 1/2NS started at 100mls/hr per new order to maintain pts blood sugar as it has been showing signs of some decrease through the night per report by previous shift RN, Elayne.
--- NOTE | 2018-10-28 08:45 | CM.DANOTE ---
DCP: Case received, EMR reviewed and met with patient. Patient semi-responsive at this time, but placed name of this manager rn case on white board in her room. DCP template completed with information currently available. Patient is a 77 year old female who admitted yesterday evening to the care of the hospitalist team. PCP: Dr. Smalls. Payer: confirmed: Medicare/[employer]. Patient was here recently in the ICU for a-fib. Patient back at hospital. Prior to hospitalizations, had been independent, has over at [facility] post bi-pass surgery. Patient was alert and oriented when she was in ICU. Lives with grandson. Was brought by family vehicle due to confusion. There was concern prior when she was here regarding medication compliance. for patient was spending most of her time visiting her in [place], when he had the surgery. At this time, patient not responsive. P: DCP to follow closely, regarding her medical needs. Patient [facility] need to [facility] [facility] when stable. Will reach out to family as well. Arcelia Garnica RN/Com[employer]est Control Representative
--- NOTE | 2018-10-28 12:09 | PC.NURSE ---
Pt has been somewhat rousable to voice and answers some questions appropriately. Speach is slightly slurred. Pt continues to sleep in between being roused by nursing care, with some apnea noted. MRI has been complete. Pt was cooperative. O2 sats 95% on 2.5L via nasal cannula. Pt has been changed of a saturated brief and given a bed bath. Underside of abdominal pannus, breasts and groin have been powdered and pillow cases placed to prevent maceration of skin and possible fungal infection.
--- NOTE | 2018-10-28 12:24 | CM.DPC ---
DCP Cont: Was able to call and reach out to daughter, Carmita, who is POA. Daughter lives in [facility], and her son Hector, who is patient's grandson, is staying with patient at her home. Patient also has someone come in to do some cleaning as well. Discussed care and discharge plan with daughter. Stated that her dad is doing well as [facility] as well. Daughter is in agreement that skilled may be beneficial for patient. Is aware that patient would require a 3 day stay, since she is Medicare. Stated that [facility] would be a good choice, since her is there. Gave her care management phone number should she have any questions. Daughter's phone number is on face sheet. P: DCP to continue to follow closely, and will discuss case further at team rounds regarding skilled care. Arcelia Garnica RN/[employer] Developer
[2018-10-28] MEDS: METOPROLOL TARTRATE 5 MG/5 ML INJ IV ×2 (13:37→18:41)
--- NOTE | 2018-10-28 17:18 | PC.NURSE ---
Student Nurse Note Pt in and out of consciousness and will intermittently arouse to sound or touch. Pt is very confused when she wakes and mumbles and speaks incoherent sentences. Pt woke and stated she needed to get up because she needed to fix dinner, but we informed her we will provide dinner and told her not to worry. She seemed uncomfortable and agitated I asked if she needed to use the restroom and she said she did. Upon checking, she was already incontinent, so we changed her in bed and she immediately fell back asleep. Pt is unable to take oral medications at this time due to safety concern, so 1700 meds were not given. Pt O2 sat is ranging from 92-97% while on 2L nasal cannula. Pt is chest breathing with accessory muscles and has sleep apnea. Pt in bed with head of bed elevated, bed rails upx4, bed alarm on, bed in low position and locked, call light within reach, but she is unable to use at this time due to her mental status. Will make rounds often for safety checks.
--- NOTE | 2018-10-28 20:41 | PC.NURSE ---
Addendum entered by Elizabeth Fish R.N. 10/28/18 21:43: Turned 02 down to 2L per nc and 02 sats remain mid to high 90's. Total care. Original Note: Rouses easily, but does not remain wakeful for very long. Reoriented to situation. 02 @ 3L per nc sats 99% so decreased to 2L per NC. Remains NPO as ordered and pt assessed as too somnulent to safety take po intake.
--- NOTE | 2018-10-28 23:49 | PC.NURSE ---
Pt mostly sleeping in bed. 02 per NC @ 2L (continuous oximeter in place) and 02 saturation level 96%. Pt was awakened for brief change and pt is confused. Requires frequent reorientation to situation and interventions. Large urinary incontinence. Pt will assist with turning when calm. HR elevated with pt's agitation with brief change to 130, but not sustained. When pt returns to quiet resting state, HR 92 per monitor. Pt is able to move all extremities independently.
[2018-10-29] VITALS (8 sets, daily range): BP systolic 96–166; BP diastolic 51–110; PULSE 81–112; RESP 16–20; TEMP 36.4–37.3; O2SAT 91–94
--- NOTE | 2018-10-29 00:05 | PC.NURSE ---
Addendum entered by Elizabeth Fish R.N. 10/29/18 02:19: Pt with legs off of bed, oxygen cannula off, and oximeter probe off. Staff attend to pt., I have to get up. Pt was reoriented to place and situation once again. Pt states wants to go home and tells this filing writer, I'm going to call the police. Informed pt it is 2 a.m. and no one to come for patient as this is the time for sleep. Calmly suggested this conversation could take place in the morning. Brief changed and pericare provided. Repositioned in bed and pt loudly verbally berates staff. Calmly reassured pt. Oral care provided. Warm blanket for comfort. Room darkened and pt left to rest. Pt with eyes closed. Close monitoring by staff. Pt's speech easily and clearly understood when shouting at staff. Original Note: Pt is unable to follow commands to accurately perform NIH evaluation.
[2018-10-29] MEDS: METOPROLOL TARTRATE 5 MG/5 ML INJ IV ×3 (01:01→11:16)
[2018-10-29] MEDS: DEXTROSE 5%-0.45% NS 1,000 ML 100 ML IV ×2 (04:56→15:52)
--- NOTE | 2018-10-29 08:06 | PC.NURSE ---
Pt remains somnolent this morning but is rousable for brief spurts, falling quickly back to sleep. Attempt is made to orient to pt that she is in the hospital. She is able to participate in neurological assessment this morning. CMS+ to all extremities. Pt denies numbness or tingling, or blurred vision. Some speech is delayed and garbled but pt is able to correct. O2 sats are mid to low 90's on RA as she is reluctant to keep her nasal cannula in place for suspected sleep apnea.
[2018-10-29] MEDS: ATORVASTATIN 20 MG TABLET 40 MG PO (09:29)
[2018-10-29] MEDS: CHOLECALCIFEROL (VITAMIN D3) 1,000 UNIT TABLET 2000 UNIT PO (09:29)
[2018-10-29] MEDS: ASPIRIN EC 81 MG TABLET PO (09:29)
[2018-10-29] MEDS: DIGOXIN 0.125 MG TABLET PO (09:34)
[2018-10-29] MEDS: ESCITALOPRAM 10 MG TABLET PO (09:35)
[2018-10-29] MEDS: sulfaSALAzine 500 MG TABLET 1000 MG PO ×2 (09:35→21:28)
[2018-10-29] MEDS: FUROSEMIDE 40 MG TABLET PO (09:35)
[2018-10-29] MEDS: SPIRONOLACTONE 25 MG TABLET 12.5 MG PO (09:35)
[2018-10-29] MEDS: levoFLOXacin 250 MG TABLET 750 MG PO (09:35)
--- NOTE | 2018-10-29 11:00 | ST.IPCSEOM ---
Care Team Visit Care Team Role Provider Type Pete Smalls MD Family Provider Physician Primary Care Provider Specialty: Family Practice Address: [address], [place], [address] Email: Marcos Roy DO Emergency Provider Physician Specialty: Emergency Medicine Address: [address] [place] [address], [id number] Email: EDIS Catalan Admit Provider Advanced Road Cutter Attending Provider Specialty: Internal Medicine Address: [address] [place] [address], [id number] Email: Current Diagnoses Altered mental status, unspecified (10/27/18) Past Medical History (Last Reviewed 10/28/18 @ 02:15 by EDIS Catalan) Atrial fibrillation (Acute Medical) Atypical pneumonia (Acute Medical) DVT (deep venous thrombosis) (Acute Medical) Hyperlipidemia (Acute Medical) Hypertension (Acute Medical) Depression (Chronic Medical) Speech-Language Pathology Swallow Evaluation FLAVOR ROOM WORKER Clinical Swallow Evaluation Start: 10/29/18 09:24 Freq: Status: Active Protocol: Document 10/29/18 09:24 [facility] (Rec: 10/29/18 09:29 [facility] [id number]) Clinical Swallow Evaluation Session Time Visit Start Time 09:45 Visit Stop Time 09:11 Total Visit Minutes [address] Cote Reason for Referral Swallow evaluation Setting Assessment Location Acute Care Visit Type Note Type Initial Evaluation Next Note Type Next Note Type Treatment Note Patient Information Identification Type Name ID Wristband Other History Patient is a 77 year old female brought to [facility] on 10/28/18 by her grandson. She presented with confusion and required sedation. She has a PMH of HTN , AFIB, DVT, HLD, depression and anxiety. She was recently hospitalized on 10/24 to 10/27 and was discharged for 12-16 hours before being brought back due to being disoriented and presenting with slurred speech. PMH: Atrial fibrillation (Acute) Atypical pneumonia (Acute) DVT (deep venous thrombosis) ( Acute) Hyperlipidemia (Acute) Hypertension (Acute) Depression (Chronic) IMAGING: Brain MRI 10/28: Bilateral small foci of diffusion weighted abnormality can be seen. 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 Also noted: Small bilateral pleural effusions are incidentally noted, left greater than right. Evaluation Liquids Trialed Thin Solids Trialed Puree Dysphagia Advanced Regular Administration Type Controlled Cup Sip Cup Consecutive Sips Straw Oral Impairment WFL Oral Strategies Upright at 90 degrees Oral Phase Comments No oral dysphagia Pharyngeal Impairment Mildly Impaired Pharyngeal Strategies Effortful Swallow Small Bites and Sips Alternate Liquids/Solids Pharyngeal Phase Comments Mild pharyngeal dysphagia observed with impulsivity, rapid rate of intake and distraction. Factors observed: coughing, shortness of breath . Findings Dysphagia Type Mild pharyngeal dysphagia Rehabilitation Potential Good Impressions Patient presents with mild pharyngeal dysphagia observed through impulsivity, rapid rate of intake and distraction . She frequently takes quick, large bites and does not swallow after each bite. As a result, occasional coughing observed. Prior to initiation of trials, FLAVOR ROOM WORKER repositioned patient upright in bed. This also caused patient to exhibit strong, wet cough. Nursing and FLAVOR ROOM WORKER strongly suspect cough from source other than swallowing. Patient independently trialed thin liquids via cup and straw, puree applesauce, fruit and a soft sandwich. She decliend trials of a radha cracker. No difficulty observed with mastication. No overt s/s of aspiration observed in single or consecutive sips. Swallow initiation timely and adequate in strength. Patient was very confused througout the evaluation, asking questions about how many people worked in the hospital, how large it was, how it got its name, if it was an old house renovated to be a hospital, etc. She did not recall being here a few days ago. Her distraction largely impacts her swallowing ability, however, her swallow function appears functional. RECOMMEND: Thin liquids and dysphagia advanced textures ( due to confusion). Medication as tolerated. Cue for alertness and decrease environmental distractions during meals. If patient is fatigued or lethargic, hold tray. Her largest issue is disorientation, which can reduce awareness needed for swallowing. Diet Recommendations Liquids Order Thin Diet Order Dysphagia Advanced Medication Recommendations As Tolerated Aspiration Precautions Recommended Precautions Upright at 90 Degrees Alternate Liquids/Solids Frequent Rest Periods Small Bites/Sips Additional Precautions Slow rate of intake Treatment Plan Placement Recommendations after [facility] Facility Discharge Appropriate for Therapy Yes Therapy Recommendations Follow for swallowing safety Dysphagia Goals 1. Tolerate safest, least restrictive diet 2. Intake when alert, maintain safety through slow rate of intake and frequent rest periods. 3. Will stop eating if coughing, until respiratory rate improves.
--- NOTE | 2018-10-29 11:15 | CM.DPC ---
Addendum entered by Arcelia Garnica R.N. 10/29/18 12:22: Spoke to daughter, Carmita, who had just spoken to patient. Stated that she thinks she got her mom to realize why she should be here. Daughter explained some history regarding patient. Stated that she had at one time been drinking and driving, and had ended up in [place], and could not remember where she was. She was concerned that patient was taking her Lexapro with alcohol. Stated that although grandson, who is 23 and stays with her, has found challenges with patient. Asked her if patient had history of alcohol abuse, and stated, No, she does not think she has. At this time, continuing to monitor patient. Unsure if patient will consent to go to [facility], but may since is there. Daughter is planning on being here in town on Friday. Original Note: DCP Cont: Patient more alert today. Was speaking to nurse, [place]. Stated that patient is talking about leaving. Stated that she has to get home. Patient is unable to ambulate, and has not yet worked with the physical therapy team. Patient continues to be in A-Fib as well. Called and spoke to daughter, Carmita, who lives in [place]. She has also been in contact with her dad, patient's as well. Encouraged daughter to call and speak to her mom in her room. Daughter stated, she can't go home in this condition. Dr. Cote, hospitalist, is aware of situation. She will not be discharging patient anytime soon. Patient is in need of a safe discharge plan, due to medication non-compliance issues. Asked daughter when she would be coming here to see her mother, stated she can't come any sooner than Friday. P: DCP to continue to follow closely. Patient is complex, and has medical needs. [facility], for medication management and rehabilitation. Have already updated Mylene at [facility] regarding potential admit in a few days. Arcelia Garnica RN/[employer] Consultant
--- NOTE | 2018-10-29 12:09 | P.PN_ITS ---
Subjective Date Patient Seen: 10/29/18 Interval history: Patient is awake and alert today. She knows she is in [place] but can't state the name of the hospital. She is anxious to go home. At times patient is somewhat angry and demanding to leave. Despite this she to move all of her extremities. Her heart rate remains elevated at 1 30s to 150s. She will be started back on her usual home medications. Exam Vital Signs (past 8 hours): - 10/29/18 04:51 10/29/18 07:33 10/29/18 10:01 Temperature 99.1 F 97.6 F Pulse Rate 112 H 98 H Respiratory Rate 16 20 Blood Pressure 143/110 H 166/79 H Pulse Oximetry 91 91 93 Oxygen Delivery Method Room Air Oxygen Flow Rate 0 Narrative Exam Narrative: Elderly female angry demanding to go home Lungs: Clear to auscultation Cardiac exam: Tachycardic irregularly irregular normal S1-S2 Abdomen: Soft and nontender Extremities: No edema Neuro exam: The patient is awake alert and appropriate. Her cranial nerves are intact. Her strength is symmetric and equal. Sensation grossly intact. Reflexes are brisk and equal. Objective Labs Result Diagrams: 10/28/18 07:00 10/28/18 07:00 Assessment & Plan (1) Acute CVA (cerebrovascular accident): Problem details: MRI yesterday confirmed new diffusion defects suggesting a subacute embolic CVA. Patient will continue on rivaroxaban, lisinopril, aspirin, will obtain a fasting lipid profile Current visit: Yes Status: Acute (2) Altered mental status: Problem details: Acute encephalopathy likely related to subacute embolic CVA. This has improved Qualifiers: Altered mental status type: delirium Coma depth: Coma timing: Qualified Code(s): R41.0 - Disorientation, unspecified Current visit: Yes Status: Acute (3) Pneumonia: Problem details: Continue levofloxacin Qualifiers: Aspiration pneumonia type: Laterality: unspecified laterality Lung location: unspecified part of lung Pneumonia type: due to unspecified organism Qualified Code(s): J18.9 - Pneumonia, unspecified organism Current visit: No Status: Acute (4) Atrial fibrillation with rapid ventricular response: Problem details: Will resume her oral metoprolol, digoxin, Cardizem, and continue Xarelto Current visit: No Status: Acute Plan: Assessment/Plan Narrative: Requested PT OT and speech evaluation. The patient is demanding to go home however family requests continued observation. Given her rapid atrial fibrillation the patient will need to remain in the hospital until her heart rate has been controlled.
--- NOTE | 2018-10-29 13:14 | OT.IP.TRT ---
Current Diagnoses Unspecified atrial fibrillation (10/27/18) Cerebral infarction, unspecified (10/27/18) Pneumonia, unspecified organism (10/27/18) Disorientation, unspecified (10/27/18) Altered mental status, unspecified (10/27/18) Occupational Therapy Treatment Note M3 OT- IP Subjective and Pain Start: 10/29/18 13:12 Freq: Status: Active Protocol: Document 10/29/18 13:12 [facility] (Rec: 10/29/18 13:13 [facility] [id number]) OT- Subjective Occupational Therapy Visit Type Type Administrative Note Notes Pt hold from OT eval today per nursing due to high HR, to attempt OT eval tomorrow.
[2018-10-29] MEDS: METOPROLOL ER 50 MG TABLET PO ×2 (13:25→21:28)
[2018-10-29] MEDS: dilTIAZem CD 180 MG CAP PO (13:25)
--- NOTE | 2018-10-29 15:04 | PT.IPTN ---
Current Diagnoses Unspecified atrial fibrillation (10/27/18) Cerebral infarction, unspecified (10/27/18) Pneumonia, unspecified organism (10/27/18) Disorientation, unspecified (10/27/18) Altered mental status, unspecified (10/27/18) Physical Therapy Treatment Note M3 PT-IP Subjective Start: 10/29/18 14:56 Freq: NEEDED Status: Active Protocol: Document 10/29/18 15:03 AB (Rec: 10/29/18 15:04 AB [id number]) Subjective Physical Therapy Visit Type Notes pt on hold per nurse. stated that pt is still tachycardic and at this time nursing is trying to have it be stable first.
[2018-10-29] MEDS: METOPROLOL TARTRATE 5 MG/5 ML INJ 7.5 MG IV (15:51)
[2018-10-29] MEDS: RIVAROXABAN 10 MG TABLET 20 MG PO (17:36)
--- NOTE | 2018-10-29 18:35 | PC.NURSE ---
Pt mostly sleeping in recliner @ beginning of shift. Chair alarm in place. Wakens for evening meal. Appropriate mentation and conversation. Off on year stating 2018, but all other conversation and orientation is appropriate. Pt is calm, polite, no recall of what brought pt to hospital. States understands, I couldn't even count change. Pt denies pain. Follows all commands appropriately. Slight weakness RLE versus LLE, but no other focal deficit noted. Warm blankets for comfort and allowed to remain up in recliner as per request. Tele in place.
--- NOTE | 2018-10-29 22:21 | PC.NURSE ---
Pt took diet well for evening meal. No longer npo so blood glucose check intervention completed. Appropriate mentation and conversation although pt can be abrupt with staff. Able to make needs and wants known to staff. Mostly sleeping, but rousable.
[2018-10-30] VITALS (8 sets, daily range): BP systolic 81–121; BP diastolic 44–75; PULSE 78–101; RESP 15–22; TEMP 36.6–37; O2SAT 93–95
[2018-10-30] MEDS: METOPROLOL TARTRATE 5 MG/5 ML INJ IV ×3 (02:01→14:57)
[2018-10-30] MEDS: SODIUM CHLORIDE 0.9% FLUSH 10 ML IV (02:02)
[2018-10-30] MEDS: DEXTROSE 5%-0.45% NS 1,000 ML 100 ML IV ×3 (02:03→21:38)
--- NOTE | 2018-10-30 09:10 | PT.IIE ---
Addendum entered and electronically signed by Sonali Hamm PT 10/31/18 08:42: This is to certify that I have reviewed this documentation and POC Original Note: Current Diagnoses Unspecified atrial fibrillation (10/27/18) Cerebral infarction, unspecified (10/27/18) Pneumonia, unspecified organism (10/27/18) Disorientation, unspecified (10/27/18) Altered mental status, unspecified (10/27/18) Surgical History (Last Reviewed 10/28/18 @ 02:15 by EDIS Catalan) H/O section (Acute) History of appendectomy (Acute) History of cholecystectomy (Acute) No pertinent past surgical history (Acute) Medical History (Last Reviewed 10/28/18 @ 02:15 by EDIS Catalan) Atrial fibrillation (Acute) Atypical pneumonia (Acute) DVT (deep venous thrombosis) (Acute) Hyperlipidemia (Acute) Hypertension (Acute) Depression (Chronic) Physical Therapy Inpatient Evaluation/Re-Eval M1 PT/OT-IP Prior Functional Status Start: 10/29/18 14:56 Freq: NEEDED Status: Active Protocol: Document 10/30/18 09:10 (Rec: 10/30/18 13:33 [id number]) Medical Review Prior Functional Status Medical History Reviewed Yes Communication No deficits noted. Mobility and Gait Previously independent community ambulator using no AD. Indep with all self care and driving. ` Social History Household Members spouse family Living Arrangements House Number of Floors (Floors) One Floor Number of Stairs To Enter/Railing? 2 steps no rail to enter Home Environment Standard Height Toilet Walk in Shower Built-In Shower Seat Home Equipment Straight Cane Employment Status Retired Additional Social History Comment spc belongs to pt . Bed is 4-post bed. Pt planning to purchase bsc for who recently had a heart attack. Lives with and 24 y/o grandson. could assist 23/06 if needed. M2 PT-IP Current Condition Start: 10/29/18 14:56 Freq: NEEDED Status: Active Protocol: Document 10/30/18 09:10 (Rec: 10/30/18 13:33 [id number]) Physical Therapy Current Condition Current Condition Evaluation Date 10/30/18 Treatment Diagnosis altered mental status; difficulty walking Onset Date 10/27/2018 M3 PT-IP Subjective Start: 10/29/18 14:56 Freq: NEEDED Status: Active Protocol: Document 10/30/18 09:10 (Rec: 10/30/18 13:33 [id number]) Subjective Physical Therapy Visit Type Type Initial Evaluation Visit Start Time 09:10 Visit Stop Time 09:50 Total Visit Minutes 40 Number of HEALTH TEACHER Visits 0 Physical Therapy Visit Comments Patient Comments Pt agreeable to mobilize with PT. Patient Goals Plans to d/c home with . Therapy Pain Assessment Pain Present Pain Present Pain Reported Location Neck Intensity 5 Scale Used Numeric (1 - 10) Pain Management Techniques Modification of Treatment Re-positioning Timing of Activity with Medications M4 PT-IP Mobility and Gait Start: 10/29/18 14:56 Freq: NEEDED Status: Active Protocol: Document 10/30/18 09:10 (Rec: 10/30/18 13:33 [id number]) PT-Bed Mobility Assessment Rolling Type of Rolling Log Rolling Bilateral Level of Assist Minimal Assistance 1 Person Assistance Supine to Sit Supine to Sit Contact Guard Assistance Scooting Scooting to Edge of Bed Standby Assistance PT-Transfer Assessment Sit to and From Stand Sit to and from Stand Standby Assistance Use of Upper Extremities Equipment Transfer Assistive Device Gait Belt Front Wheeled Walker Orthotic/Prosthetic Devices or Brace: No Transfers Transfer Destination Chair Transfer Technique Ambulates between surfaces. Comments Mobility Comments Supine HOB elevated/resting BP 101/59 HR 88-115. Pt requesting assist to sit up in bed and c/o pain in her neck when attempts supine > sit with maxAx1. Pt instructed in log roll to protect C-spine and is able to complete with min cues, however needing maxAx1 to complete for assisting legs out of bed and assist trunk upright. Pt states slight dizziness upon sitting. BP 127/68 HR 89. States dizziness subsided and agreeable to continue. Sit <> stand completed with fww is SBA, pt using BUE. Pt denies dizziness/headahce/nausea and agreeable to ambulate; pt wants to use the toilet. Gait Assessment Gait Gait Assistance Required: Standby Assistance Distance (Feet) 30 Able to Maintain Weight Bearing Status Yes During Gait Assistive Devices Assistive Device None Gait Belt Front Wheeled Walker Orthotic/Prosthetic Devices or Brace: No Gait Deviations General Gait Pattern Within Normal Limits Factors Limiting Gait Function Factors Limiting Gait Function Decreased Activity Tolerance Decreased Sensation Poor Balance Poor Safety Awareness Comments Gait Comments Pt ambulates 15 ft + 15 ft. with fww to/from bathroom SBA. Standing balance during pt performance of pericare is SBA and pt able to stand without UE support on walker. Pt standing balance at sink for ~ 2 mins. pt using BUE support on sink to stand. Additional 30 ft ambulation in room is SBA with no AD and pt has no LOB. Gait pattern is WNL however gait speed is decreased. Post ambulation/ seated BP is 130/70 HR 89. PT-Balance Assessment Sitting Balance and Reactions Static Sitting Balance Ability Good Dynamic Sitting Balance Ability Good Standing Balance and Reactions Static Standing Balance Ability Good Dynamic Standing Balance Ability Fair Device Used no AD. M5 PT-IP Objective Assessments Start: 10/29/18 14:56 Freq: NEEDED Status: Active Protocol: Document 10/30/18 09:10 (Rec: 10/30/18 13:33 [id number]) Orientation Orientation/Cognition Level of Alertness Alert Orientation Name Birthday Place Situation Language Function Ability No Deficits Noted Safety Awareness Decreased Safety Awareness Gross Range of Motion Lower Extremity ROM Assessment Within Functional Limits Strength Lower Extremity Strength Assessment Bilaterally Impaired Comments Strength Comments BLE symmetrical at 4+/5 on gross testing. M6 PT-IP Treatment Start: 10/29/18 14:56 Freq: NEEDED Status: Active Protocol: Document 10/30/18 09:10 (Rec: 10/30/18 13:33 [id number]) Physical Therapy Treatment Education Education Provided Safety M7 PT-IP Assessment and Plan Start: 10/29/18 14:56 Freq: NEEDED Status: Active Protocol: Document 10/30/18 09:10 (Rec: 10/30/18 13:33 [id number]) PT Summary Assessment and Plan Potential Rehabilitation Potential Good Status of Condition at Evaluation Evolving Summary Impairments Pain Strength Balance Bed Mobility Transfers Gait Activity Tolerance Assessment Summary Pt requiring maxA x1 for bed mobility, SBA with ambulation using no AD. Pt is likely to improve with functional mobilities. Pt needs to improve bed mobility and safely complete stair climbing , and caregiver training may be needed. Once completed and pt is medically ready, d/c to home with assist. Goals Bed Mobility Goal Contact Guard Assistance Transfer Goal Independent Gait Goal Independent Gait Distance 150 Other Goals Ambulate 150 ft. with no AD SBA. Days to Meet Goals 3 Frequency of Treatment Frequency Of Treatment Once a Day Treatment Plan Physical Therapy Treatment Plan Bed Mobility Training Transfer Training Gait Training Therapeutic Exercise Balance Retraining Discharge Planning Hot or Cold Pack Neuromuscular Re-ed Coordination Retraining Manual Therapy Other Recommendations and Next Treatment Bed mobility, ambulation (no Focus AD) and stair climbing as appropriate. Recommendations To Nursing Amount of Assist Needed 1 Person Assist Discharge Recommendations PT Discharge Recommendations Home with Assistance
[2018-10-30] MEDS: levoFLOXacin 250 MG TABLET 750 MG PO (10:05)
[2018-10-30] MEDS: ESCITALOPRAM 10 MG TABLET PO (10:06)
[2018-10-30] MEDS: ATORVASTATIN 20 MG TABLET 40 MG PO (10:06)
[2018-10-30] MEDS: sulfaSALAzine 500 MG TABLET 1000 MG PO ×2 (10:06→20:08)
[2018-10-30] MEDS: DIGOXIN 0.125 MG TABLET PO (10:06)
[2018-10-30] MEDS: CHOLECALCIFEROL (VITAMIN D3) 1,000 UNIT TABLET 2000 UNIT PO (10:07)
[2018-10-30] MEDS: ASPIRIN EC 81 MG TABLET PO (10:07)
--- NOTE | 2018-10-30 13:21 | PM.PN.1 ---
Subjective Date Patient Seen: 10/30/18 Interval history: She is seen today to follow up her weakness and confusion. The brain MRI reading is.....Bilateral small foci of diffusion weighted abnormality can be seen. 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 She has very little short-term memory and cannot remember why she is in the hospital or any particular symptoms that she is having. She scores 18/30 on a mental cognitive exam. Exam Vital Signs (past 8 hours): - 10/30/18 09:00 10/30/18 11:10 Temperature 97.9 F 97.8 F Pulse Rate 101 H 89 Respiratory Rate 18 22 Blood Pressure 101/59 L 97/50 L Pulse Oximetry 94 94 Oxygen Delivery Method Room Air Oxygen Flow Rate 0 Narrative Exam Narrative: Alert and oriented x3. 18/30 on cognitive exam. Heart is irregularly irregular. Lungs are clear to auscultation bilaterally. Extremities have no ankle edema. She looks quite strong. There are no obvious cranial nerve deficits or lateralizing upper or lower extremity weakness. Objective Labs Result Diagrams: 10/28/18 07:00 10/28/18 07:00 Assessment & Plan Plan: Assessment/Plan Narrative: On her Brain MRI bilateral small foci of diffusion weighted abnormality can be seen. 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 (1) Acute CVA (cerebrovascular accident): Problem details: MRI with new diffusion defects suggesting a subacute embolic CVA. Patient will continue on rivaroxaban, lisinopril, aspirin, will obtain a fasting lipid profile tomorrow. Current visit: Yes Status: Acute (2) Altered mental status: Problem details: Acute encephalopathy likely related to subacute embolic CVA. This has improved but short term memory/impulsiveness continues. Qualifiers: Altered mental status type: delirium Coma depth: Coma timing: Qualified Code(s): R41.0 - Disorientation, unspecified Current visit: Yes Status: Acute (3) Pneumonia: Problem details: Continue levofloxacin Qualifiers: Aspiration pneumonia type: Laterality: unspecified laterality Lung location: unspecified part of lung Pneumonia type: due to unspecified organism Qualified Code(s): J18.9 - Pneumonia, unspecified organism Current visit: No Status: Acute (4) Atrial fibrillation with rapid ventricular response: Problem details: Will continue her oral metoprolol, digoxin, Cardizem, and Xarelto Current visit: No Status: Acute Plan: Assessment/Plan Narrative: Continue PT OT and speech evaluation. The patient is agreeing to SNF rehab with her as he is already at [facility].
[2018-10-30] MEDS: dilTIAZem CD 180 MG CAP PO (13:26)
[2018-10-30] MEDS: FUROSEMIDE 40 MG TABLET PO (13:26)
[2018-10-30] MEDS: SPIRONOLACTONE 25 MG TABLET 12.5 MG PO (13:26)
[2018-10-30] MEDS: METOPROLOL ER 50 MG TABLET PO ×2 (13:26→21:43)
--- NOTE | 2018-10-30 13:30 | ST.IP.CME ---
Current Diagnoses Unspecified atrial fibrillation (10/27/18) Cerebral infarction, unspecified (10/27/18) Pneumonia, unspecified organism (10/27/18) Disorientation, unspecified (10/27/18) Altered mental status, unspecified (10/27/18) Past Medical History (Last Reviewed 10/28/18 @ 02:15 by EDIS Catalan) Atrial fibrillation (Acute Medical) Atypical pneumonia (Acute Medical) DVT (deep venous thrombosis) (Acute Medical) Hyperlipidemia (Acute Medical) Hypertension (Acute Medical) Depression (Chronic Medical) Speech-Language Pathology Cognitive Evaluation THIRD OFFICER Cognitive/Memory Evaluation Start: 10/30/18 10:47 Freq: Status: Active Protocol: Document 10/30/18 10:48 [facility] (Rec: 10/30/18 10:51 [facility] [id number]) Evaluation of Cognition Session Time Total Visit Minutes 40 Visit Information Visit Number 2 Next Note Type Next Note Type Treatment Note Vision Vision Status Impaired Comments Wears reading glasses Educational Status Education Level Bachelor's degree Occupational Status Occupation Status Retired pre school teacher Previous Therapy Previous Speech-Language Therapy Yes History of Therapy Ximena was seen yesterday for a swallowing evaluation. Results indicated mild pharyngeal impairment. Thin liquids, Dysphagia Advanced diet was recommended. Oral Motor Examination Oral Motor Exam Completed No Subjective Subjective Ximena was sitting up in the chair eating breakfast. She had just finished working with PT, but was agreeable to a cognitive evaluation. She was cooperative during the session . - Informal Assessment Receptive Language Normal Yes Expressive Language Normal Yes Articulation Normal Yes - Cognition Orientation Skill Level WFL Attention Skill Level Moderately Impaired Problem Solving/Reasoning/Judgment Skill Level Mildly Impaired Divergent Naming Skill Level Mildly Impaired Category Naming/Identification Skill Level WFL Clock Drawing Skill Level WF - Memory Short Term Memory Skill Level Moderately Impaired Immediate Recall Skill Level Mildly Impaired - Findings Cognitive/Memory Impressions The Gerber Cognitive Assessment (MOCA) was completed. The patient scored 18/30 indicating abnormal cognitive function and raising concern for patient's safety if she were to return home independently. She had significant difficulty with memory and attention tasks. During immediate recall, she recalled 2/5 items and after a 5 minute delay she recalled 0 /5 items. Given category cues she recalled 1/5 items and 4/ 5 given two choices. She completed the trail making tasks and clock drawing task without difficulty. She did not have difficulty with object naming, but did not pass criteria for divergent naming tasks only coming up with 7 words that start with the letter f in 1 minute. She completed the abstraction tasks and answered orientation questions without difficulty. Recommendations Recommendations It is recommended that patient receive cognitive skills training including the use of compensatory strategies to improve memory and attention skills for safety in the home. residential rehab is recommended. Treatment Goals Short Term Goals Demonstrate sustained attention by maintaining focus during a task for 3 minutes with no more than 2 cues in a distracting environment. Recall a 3 part functional message related to ADL?s immediately after review. Recall daily activities via retellings/answering questions with out cues.
--- NOTE | 2018-10-30 15:12 | OT.IP.TRT ---
Current Diagnoses Unspecified atrial fibrillation (10/27/18) Cerebral infarction, unspecified (10/27/18) Pneumonia, unspecified organism (10/27/18) Disorientation, unspecified (10/27/18) Altered mental status, unspecified (10/27/18) Occupational Therapy Treatment Note M3 OT- IP Subjective and Pain Start: 10/29/18 13:12 Freq: Status: Active Protocol: Document 10/30/18 15:11 [facility] (Rec: 10/30/18 15:12 [facility] [id number]) OT- Subjective Occupational Therapy Visit Type Notes Pt not willing to get up at this time but able to complete cognitive assessments and questions for OT eval. To see pt tomorrow for completion of OT eval, no charge.
[2018-10-30 18:44] LABS: Cholesterol 117 mg/dL (140-199); HDL Cholesterol 25 mg/dL (40-60); LDL Cholesterol Calculated 74 mg/dL (<100); Triglycerides 89 mg/dL (35-150)
[2018-10-30] MEDS: RIVAROXABAN 10 MG TABLET 20 MG PO (18:51)
[2018-10-30] MEDS: ACETAMINOPHEN 325 MG TABLET 650 MG PO (20:06)
[2018-10-31 00:15] VITALS: BP 104/74; PULSE 82; RESP 15; TEMP 36.4; O2SAT 92
[2018-10-31 01:56] VITALS: BP 100/61; PULSE 87; RESP 16; O2SAT 95
[2018-10-31 04:50] VITALS: BP 117/70; PULSE 89; RESP 16; TEMP 36.4; O2SAT 92
[2018-10-31] MEDS: DEXTROSE 5%-0.45% NS 1,000 ML 100 ML IV (07:40)
[2018-10-31 07:50] VITALS: BP 105/76; PULSE 91; RESP 18; TEMP 36.3; O2SAT 94
[2018-10-31] MEDS: DIGOXIN 0.125 MG TABLET PO (09:45)
[2018-10-31] MEDS: CHOLECALCIFEROL (VITAMIN D3) 1,000 UNIT TABLET 2000 UNIT PO (09:45)
[2018-10-31] MEDS: ATORVASTATIN 20 MG TABLET 40 MG PO (09:45)
[2018-10-31] MEDS: ASPIRIN EC 81 MG TABLET PO (09:45)
[2018-10-31] MEDS: dilTIAZem CD 180 MG CAP PO (09:45)
[2018-10-31] MEDS: METOPROLOL ER 50 MG TABLET PO (09:46)
[2018-10-31] MEDS: ESCITALOPRAM 10 MG TABLET PO (09:46)
[2018-10-31] MEDS: FUROSEMIDE 40 MG TABLET PO (09:46)
[2018-10-31] MEDS: SPIRONOLACTONE 25 MG TABLET 12.5 MG PO (09:46)
[2018-10-31] MEDS: sulfaSALAzine 500 MG TABLET 1000 MG PO (09:47)
--- NOTE | 2018-10-31 09:57 | OT.IP.EVAL ---
Current Diagnoses Unspecified atrial fibrillation (10/27/18) Cerebral infarction, unspecified (10/27/18) Pneumonia, unspecified organism (10/27/18) Disorientation, unspecified (10/27/18) Altered mental status, unspecified (10/27/18) Past Medical History (Last Reviewed 10/28/18 @ 02:15 by EDIS Catalan) Atrial fibrillation (Acute) Atypical pneumonia (Acute) DVT (deep venous thrombosis) (Acute) Hyperlipidemia (Acute) Hypertension (Acute) Depression (Chronic) Surgical History (Last Reviewed 10/28/18 @ 02:15 by EDIS Catalan) H/O section (Acute) History of appendectomy (Acute) History of cholecystectomy (Acute) No pertinent past surgical history (Acute) Occupational Therapy Inpatient Evaluation/Re-Eval M1 PT/OT-IP Prior Functional Status Start: 10/29/18 14:56 Freq: NEEDED Status: Active Protocol: Document 10/31/18 09:42 [facility] (Rec: 10/31/18 09:57 [facility] [id number]) Medical Review Prior Functional Status Medical History Reviewed Yes Communication No deficits noted. Mobility and Gait Previously independent community ambulator using no AD. Indep with all self care and driving. ` Activities of Daily Living and IADL's Independent. Social History Household Members spouse family Living Arrangements House Number of Floors (Floors) One Floor Number of Stairs To Enter/Railing? 2 steps no rail to enter Home Environment Standard Height Toilet Walk in Shower Built-In Shower Seat Home Equipment Straight Cane Employment Status Retired Additional Social History Comment spc belongs to pt . Bed is 4-post bed. Pt planning to purchase bsc for who recently had a heart attack. Lives with and 24 y/o grandson. could assist 24/7 if needed. M2 OT-IP Current Condition Start: 10/29/18 13:12 Freq: Status: Active Protocol: Document 10/31/18 09:42 [facility] (Rec: 10/31/18 09:57 [facility] [id number]) Occupational Therapy Current Condition Current Condition Evaluation Date 10/31/18 Treatment Diagnosis subacute embolic CVA Diagnosis Onset Date 10/29/18 M3 OT- IP Subjective and Pain Start: 10/29/18 13:12 Freq: Status: Active Protocol: Document 10/31/18 09:42 [facility] (Rec: 10/31/18 09:57 [facility] [id number]) OT- Subjective Occupational Therapy Visit Type Type Initial Evaluation Visit Start Time 09:00 Visit Stop Time 09:40 Total Visit Minutes 40 Notes Pt very pleasant today and agreeable to partake in OT eval. Occupational Therapy Visit Comments Patient/Caregiver Goals To go home or skilled rehab at [facility] as there. OT Pain Assessment Pain When Pain Assessed At Rest Pain Present Pain Present Denied Pain M4 OT- IP ADL's Start: 10/29/18 13:12 Freq: Status: Active Protocol: Document 10/31/18 09:42 [facility] (Rec: 10/31/18 09:57 [facility] [id number]) OT ADL-Grooming General Evaluation Grooming Ability Independent Comments OT Grooming Comments Pt independent to do grooming at the sink. OT ADL-Oral Care General Eval Oral Care Ability Independent M6 OT- IP Functional Cognition Start: 10/29/18 13:12 Freq: Status: Active Protocol: Document 10/31/18 09:42 [facility] (Rec: 10/31/18 09:57 [facility] [id number]) Cognitive Factors Limiting Selfcare Function Cognitive Ability Level of Alertness Alert Patient Orientation Name Place Situation Attention Span Ability Capable of Focused Attention Capable of Sustained Attention Ability to Follow Commands Able to Follow One Step Commands with Increased Time Able to Follow One Step Commands with Repetition Memory Description Immediate Impaired Short Term Impaired Mud Mixer Intact Safety Awareness Underestimates Need for Assistance Problem Solving Ability Needs Assist to Identify Solutions Executive Function Ability Unable to Filter Distractions Unable to Remember Details Cognitive Comments Cognitive Assessment Comments Pt scored 180 seconds and needing three cues to complete 1/3 of [place] [employer]. Today pt not able to follow directions to complete any number-letter combination even after multiple cues. [place] [employer] score of greater than 180seconds per [employer] implies greater risk of getting into a car accident. Suggested to pt at this time not to drive. Pt easily distracted and not able to recall/remember directions of the task at hand . OT- Vision and Hearing OT- Hearing Assessment OT- Hearing Assessment WFL M7 OT- IP Mobility and Balance Start: 10/29/18 13:12 Freq: Status: Active Protocol: Document 10/31/18 09:42 [facility] (Rec: 10/31/18 09:57 [facility] [email or web address]) OT- Balance Assessment Sitting Balance and Reactions Static Sitting Balance Ability Normal Dynamic Sitting Balance Ability Normal Standing Balance and Reactions Static Standing Balance Ability Good Dynamic Standing Balance Ability Fair M8 OT- IP Objective Assessments Start: 10/29/18 13:12 Freq: Status: Active Protocol: Document 10/31/18 09:42 [facility] (Rec: 10/31/18 09:57 [facility] [email or web address]) OT Gross Range of Motion Upper Extremity Range of Motion Assessment Within Functional Limits OT Strength Upper Extremity Strength Assessment Within Functional Limits OT Sensation Assessment Comments Summary Comments WFL for light touch , however has word finding issues to name the body parts. M9 OT- IP Assessment and Plan Start: 10/29/18 13:12 Freq: Status: Active Protocol: Document 10/31/18 09:42 [facility] (Rec: 10/31/18 09:57 [facility] [email or web address]) OT Summary Assessment and Plan Potential Rehabilitation Potential Good Analytic Complexity at Evaluation Low Summary OT Impairments Balance Functional Cognition Functional Mobility Dressing Toileting Bathing Toilet Transfers Shower Transfers Progress Towards Goals Progressing Toward Goals Slow Progress due to Cognition Assessment Summary Pt low complexity and main barrier is functional cognition, decreased STM, and now having to use FWW for functional mobility. Pt would benefit from skilled rehab to improve functional cognition for IADL needs and for new learning and increased functional mobility as prior pt did not use a device to walk with. Therefore recommend skilled rehab. Goals Dressing Goal Independent Toileting Goal Independent Bathing Goal Standby Assistance Toilet Transfer Goal Independent Shower Transfer Goal Standby Assistance OT-Other Goals Pt to be independently set-up medications and do own money management needs. Days to Meet Goals 7 Frequency of Treatment Frequency Of Treatment Once a Day Treatment Plan OT Treatment Plan ADL Training Functional Cognition Training Functional Mobility Patient/Family Education Discharge Planning Other Treatment Recommendations and Next Money and medication Treatment Focus management needs. Discharge Recommendations OT Discharge Recommendations SNF Rehab Home Equipment Needs Defer to SNF.
[2018-10-31] MEDS: ACETAMINOPHEN 325 MG TABLET 650 MG PO (10:03)
--- NOTE | 2018-10-31 10:32 | CM.DPNOTE ---
DCP: continued: case received and spoke with Dr. Chester in [facility] [place]. He has strongly recommended [facility] to pt. He states that after he reminded her that her was there she was very agreeable to same. Left a vm for [facility] admissions/Pricila as noted that pt is on their pending list and then met with pt. Pt is found on her phone and watching tv. Stated that this [place] landscape architect and planner understood that she and Dr. Chester had agreed that rehab at [facility] would needed and helpful and that she would go there today. She readily agreed. Reminded her also that she had great insurance coverage for this and she stated she was very pleased. [facility] today once final orders received and arrangements made with [facility] re transport etc. Called [facility] again with no answer. Called [facility] Ellen who said she was sitting right next to [place] and that [place] would be calling back. Just heard back from Pricila: [facility] can transport pt at 1300, she will call back if not doable. PASRR completed and faxed to [facility] fax as well as yesterday's hospitalist note. Will await final orders from Dr. Chester. CHARLOTTE Araya is updated.
--- NOTE | 2018-10-31 11:10 | PT.IPTN ---
Current Diagnoses Unspecified atrial fibrillation (10/27/18) Cerebral infarction, unspecified (10/27/18) Pneumonia, unspecified organism (10/27/18) Disorientation, unspecified (10/27/18) Altered mental status, unspecified (10/27/18) Physical Therapy Treatment Note M2 PT-IP Current Condition Start: 10/29/18 14:56 Freq: NEEDED Status: Active Protocol: Document 10/30/18 09:10 (Rec: 10/30/18 13:33 [id number]) Physical Therapy Current Condition Current Condition Evaluation Date 10/30/18 Treatment Diagnosis altered mental status; difficulty walking Onset Date 10/27/2018 M3 PT-IP Subjective Start: 10/29/18 14:56 Freq: NEEDED Status: Active Protocol: Document 10/31/18 11:10 [facility] (Rec: 10/31/18 13:11 [facility] [email or web address]) Subjective Physical Therapy Visit Type Type Treatment Note Visit Start Time 11:10 Visit Stop Time 11:20 Total Visit Minutes 10 Number of PRESS WASHER Visits 0 Physical Therapy Visit Comments Patient Comments pt initially refusing PT. stated that she is watching her game. agreed to walk during advertisements M4 PT-IP Mobility and Gait Start: 10/29/18 14:56 Freq: NEEDED Status: Active Protocol: Document 10/31/18 11:10 [facility] (Rec: 10/31/18 13:11 [facility] [email or web address]) PT-Transfer Assessment Sit to and From Stand Sit to and from Stand Standby Assistance Use of Upper Extremities Equipment Transfer Assistive Device None Gait Belt Gait Assessment Gait Gait Assistance Required: Contact Guard Assist Minimum Assistance Distance (Feet) 50 Able to Maintain Weight Bearing Status Yes During Gait Assistive Devices Assistive Device None Gait Belt Orthotic/Prosthetic Devices or Brace: No Gait Deviations General Gait Pattern Antalgic Decreased Stride Length Decreased Feet Clearance Factors Limiting Gait Function Factors Limiting Gait Function Decreased Activity Tolerance Difficulty Following Directions Poor Safety Awareness Respiratory Distress Comments Gait Comments pt ambulated in hallway without AD requiring CGA to min A with (+) LBO x 3 requiring min A for steadiness and safety. Recommending use of FWW at this time and PT to work on standing balance and increasing ambulation using a less restrictive device when appropriate. M5 PT-IP Objective Assessments Start: 10/29/18 14:56 Freq: NEEDED Status: Active Protocol: Document 10/30/18 09:10 (Rec: 10/30/18 13:33 [id number]) Orientation Orientation/Cognition Level of Alertness Alert Orientation Name Birthday Place Situation Language Function Ability No Deficits Noted Safety Awareness Decreased Safety Awareness Gross Range of Motion Lower Extremity ROM Assessment Within Functional Limits Strength Lower Extremity Strength Assessment Bilaterally Impaired Comments Strength Comments BLE symmetrical at 4+/5 on gross testing. M6 PT-IP Treatment Start: 10/29/18 14:56 Freq: NEEDED Status: Active Protocol: Document 10/30/18 09:10 (Rec: 10/30/18 13:33 [id number]) Physical Therapy Treatment Education Education Provided Safety M7 PT-IP Assessment and Plan Start: 10/29/18 14:56 Freq: NEEDED Status: Active Protocol: Document 10/31/18 11:10 [facility] (Rec: 10/31/18 13:11 [facility] [email or web address]) PT Summary Assessment and Plan Potential Rehabilitation Potential Good Summary Impairments ROM Strength Balance Coordination Cognition Bed Mobility Transfers Gait Activity Tolerance Assessment Summary pt requiring one person assit with mobility and ambulation without AD. pt can be impulsive with decrearse safety awareness. Pt has her grandson that assists her but is not certain if he can provide 24/7 assist. Pt will need 24/7 assist at this time and will benefit from SNF rehab to improve strength and function. Goals Bed Mobility Goal Contact Guard Assistance Transfer Goal Independent Gait Goal Independent Gait Distance 150 Other Goals Ambulate 150 ft. with no AD SBA. Days to Meet Goals 3 Frequency of Treatment Frequency Of Treatment Once a Day Recommendations To Nursing Amount of Assist Needed 1 Person Assist Discharge Recommendations PT Discharge Recommendations SNF Rehab Equipment Needed for Home Before FWW if pt is going home Discharge
--- NOTE | 2018-10-31 11:12 | P.DS_ITS ---
History of Present Illness Date Patient Seen: 10/31/18 Chief complaint: CONFUSION Narrative: HPI is provided by patient's grandson. Patient is unable to take part in the HPI due to sedation. The patient is a 77-year-old female w/ PMH of HTN, AFIB, DVT, HLD, depression and anxiety. Patient is being brought to the ED by her grandson out of concern for confusion. Patient was recently hospitalized 10/24 to 10/27, d/ c in past 12-16 hours. Post-discharge patient had an eventful day. Initially, went home for about an hour and was described as idle. Thereafter, went to have her hair worked on. At 3:30 pm was at the pharmacy picking up her meds. While picking up her medications patient was noted to be disoriented and struggling to pay for her items. No unilateral or facial weakness or asymmetry reported by family. Patient did not complain of any pain. She did not complain of palpitations. She did not appear short of breath. She was disoriented and did not know where she was. Patient expressive speech is described as slurred and thought process incoherent. Despite presence of slurring, patient was easily understood. Patient grandson reports that she has been having similar events when she presented initially (10/24) and throughout her most recent hospitalization. Patient was very restless in ED, which did not occur w/ her prior events. Patient's BP and heart rate prior to her most recent discharge noted to be on the lower side, she was instructed to hold her medications for the next 24-48 hours before restarting them ED Work-Up Given aforementioned event, patient was brought to the ED for further evaluation. Per ED physician, there were no apparent focal deficits on presentation. However, patient was noted to be significantly confused. Received a combination of Benadryl / Haldol / Ativan WBC 9.7, HGB 14.1, HCT 43.4, PLT 313 PTT 30.8, INR 2.8, APTT 37 NA 142, K 4.1, CO 96, CO2 33, BUN 18, sCr 1.0, GFR 53.8, Glu 101 Liver enzymes WNL Ammonia < 9.0, TSH 2.02, Procalcitonin <0.05, Digoxin level 0.6 UA microscopic hematuria, 2+ UDS and EtOH level negative Initial VS: T 99.1, BP 150/103, HR 118, RR 24, SaO2 93% 2L O2 Head CT No definite acute intracranial abnormality. No intracranial hemorrhage, mass, or mass effect. Periventricular white matter hypodensities which are nonspecific but likely represent chronic small vessel ischemic changes. Asymmetric periventricular hypodensities demonstrated along the left frontal horn. This may represent asymmetric chronic changes, but vasogenic edema is not excluded. if clinical concern persists, further evaluation may be obtained with MRI. Discharge Providers Date of admission: 10/27/18 23:40 Primary care physician: Pete Smalls MD Consults: 10/29/18 00:00 Consult to Dietitian, Adult Routine Comment: Reason For Exam: NPO d/t somnulence. 10/29/18 08:27 Consult to Occupational Therapy Evaluate & Treat Comment: Physician Instructions: Evaluate and treat Consult to Physical Therapy Evaluate & Treat Comment: Physician Instructions: Evaluate and Treat 10/29/18 08:28 Consult to Speech Therapy Evaluate & Treat Comment: Physician Instructions: Evaluate and treat Discharge provider: Africa Chester MD Discharge Date: 10/31/18 Summary Hospital Course: On her Brain MRI bilateral small foci of diffusion weighted abnormality can be seen. 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 (1) Acute CVA (cerebrovascular accident): Problem details: MRI with new diffusion defects suggesting a subacute embolic CVA. Patient will continue on rivaroxaban, lisinopril, aspirin, Lipitor The Cholesterol is 117 with an LDL of 74. Current visit: Yes Status: Acute (2) Altered mental status: Problem details: Acute encephalopathy likely related to subacute embolic CVA. This has improved but short term memory/impulsiveness continues. Qualifiers: Altered mental status type: delirium Coma depth: Coma timing: Qualified Code(s): R41.0 - Disorientation, unspecified Current visit: Yes Status: Acute (3) Pneumonia: Problem details: Completed levofloxacin Qualifiers: Aspiration pneumonia type: Laterality: unspecified laterality Lung location: unspecified part of lung Pneumonia type: due to unspecified organism Qualified Code(s): J18.9 - Pneumonia, unspecified organism Current visit: No Status: Acute (4) Atrial fibrillation with rapid ventricular response: Problem details: Will continue her oral metoprolol, digoxin, Cardizem, and Xarelto Current visit: No Status: Acute Plan: Assessment/Plan Narrative: Continue PT OT and speech evaluation. The patient is agreeing to SNF rehab with her as he is already at [facility]. Status at Discharge Functional status at discharge: uses cane/walker Overall status at discharge: patient is progressing back to baseline Time Spent with Patient Greater than 30 minutes Exam Vital Signs (past 8 hours): - 10/31/18 04:50 10/31/18 07:50 Temperature 97.5 F L 97.3 F L Pulse Rate 89 91 H Respiratory Rate 16 18 Blood Pressure 117/70 105/76 Pulse Oximetry 92 94 Oxygen Delivery Method Room Air Oxygen Flow Rate 0 Narrative Exam Narrative: She is alert and oriented x3. She enjoys reminiscing about her early years in [place] with me. Heart is regular rate and rhythm without murmur. Lungs are clear to auscultation bilaterally. Extremities have no ankle edema. The cholesterol is 117 with an LDL of 74. Objective Labs Result Diagrams: 10/28/18 07:00 10/28/18 07:00 Labs: Laboratory Results - last 24 hr 10/30/18 17:56 Triglycerides 89 Cholesterol 117 L LDL Cholesterol, Calc 74 HDL Cholesterol 25 L Discharge Plan Discharge Plan Patient Disposition: SNF Transfer to: [facility] Under care of provider: Dr. Ge Transportation: [facility] Discharge comment: She will need her function/memory to be maximized after a recent stroke that has exacerbated her Cognitive/Decisional Impulsiveness/ Weakness status. I certify the postop hospital detention care is medically necessary on a continuing basis for any conditions for which he/ she received care during this hospitalization.: Yes The receiving facility has agreed to accept transfer and provide medical treatment.: Yes Discharge Med Rec/Prescriptions Prescriptions: Continue sulfasalazine 500 MG tablet 1,000 mg PO BID Qty: 0 RF: 0 digoxin [Lanoxin] 125 MCG tablet 0.125 mg PO QDAY Qty: 0 RF: 0 furosemide 40 MG tablet 40 mg PO QDAY Qty: 0 RF: 0 atorvastatin [Lipitor] 40 MG tablet 40 mg PO QDAY Qty: 0 RF: 0 spironolactone 25 MG tablet 12.5 mg QDAY Qty: 0 RF: 0 potassium chloride [Klor-Con 10] 10 MEQ tablet extended release 20 meq PO QD-BID Qty: 0 RF: 0 aspirin 81 MG tablet,delayed release (DR/EC) 81 mg PO QDAY Qty: 0 RF: 0 escitalopram oxalate 10 mg Tablet 10 mg PO DAILY RF: 0 lisinopril [Prinivil] 5 mg Tablet 2.5 mg PO DAILY RF: 0 diphenhydramine-acetaminophen [Tylenol PM Extra Strength] 25-500 mg Tablet 1 tab PO BEDTIME PRN (Reason: Sleep) RF: 0 cranberry fruit concentrate [cranberry] 450 mg Tablet 450 mg PO DAILY RF: 0 cholecalciferol (vitamin D3) [Vitamin D3] 2,000 unit Capsule 2,000 unit PO DAILY RF: 0 rivaroxaban 20 mg Tablet 20 mg PO QPM RF: 0 metoprolol succinate 50 mg Tablet Extended Release 24 Hr 50 mg PO BID Qty: 60 RF: 0 diltiazem HCl 180 mg Capsule,Extended Release 24hr 180 mg PO DAILY Qty: 90 RF: 0 Discontinued levofloxacin [Levaquin] 750 mg tablet 750 mg PO DAILY 7 Days Qty: 7 RF: 0 Follow up/Referrals: Pete Smalls MD [Primary Care Provider] - Discharge Health Status Precautions: [place] Provider Discharge Instructions Diet: Diet as Tolerated Liquid consistency: Normal/Thin Food texture: Regular [facility] Reason for rehabilitation: Therapy following stroke Rehab type: Physical therapy, Occupational therapy and Speech therapy Discharge Data Primary Care Provider: Pete Smalls Attending Provider: Nathaniel Munguia Admit Date/Time: 10/27/18 23:40 Discharges patient from system. Discharge Date/Time: 10/31/18 13:15
[2018-10-31 11:18] VITALS: BP 100/61; PULSE 93; RESP 18; TEMP 36.4; O2SAT 97
--- NOTE | 2018-10-31 13:09 | PC.NURSE ---
Day shift: Pt left unit at approx 1300. No pain. 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 Paperwork and all personal belongings are with Pt. Report called to Pricila.
== END 2018-10-31 13:15 | DRG 64 ==
LOC: ED 21:51 → AC 23:41
PROVIDERS: Family Medicine; Admitting Provider Nurse Practitioner Gerontology; Emergency Provider Emergency Medicine; Family Provider Family Medicine; PCP Family Medicine; Visit Provider Nurse Practitioner Gerontology
DX: I63.40 Cerebral infarction due to embolism of unspecified cerebral artery (principal); J18.9 Pneumonia, unspecified organism; Z68.41 Body mass index [BMI] 40.0-44.9, adult; G93.49 Other encephalopathy; N17.9 Acute kidney failure, unspecified; R09.02 Hypoxemia; E66.01 Morbid (severe) obesity due to excess calories; I48.91 Unspecified atrial fibrillation; I10 Essential (primary) hypertension; F32.9 Major depressive disorder, single episode, unspecified; E78.5 Hyperlipidemia, unspecified; F41.9 Anxiety disorder, unspecified; Z87.891 Personal history of nicotine dependence
CPT/HCPCS: 36415; 36600; 70450; 70553; 80048; 80053; 80061; 80162; 80305; 80320; 81001; 82140; 82805; 82962; 83690; 83880; 84145; 84443; 84484; 85025; 85610; 85730; 87040; 92610; 93005; 94760; 94762; 96125; 97116; 97162; 97165; 97530; 99283; 99285; A9579; J1200; J1630; J2060

== ENCOUNTER → 2018-11-04 08:41 | Outpatient (REF) | payer MEDICARE, OTHER, SELFPAY ==
[2018-10-27 23:30] VITALS: BMI 43.2
[2018-11-04 09:33] LABS: Add Manual Diff / Slide Review NO; Basophils Percent Auto 1.2 % (0-2); Eosinophils Percent Auto 1.7 % (2-4); Hematocrit 41.5 % (36-46); Hemoglobin 13.8 g/dL (12.0-16.0); Lymphocytes Percent Auto 16.4 % (25-40); Mean Corpuscular HGB Conc 33.2 % (30-36); Mean Corpuscular Hemoglobin 32.6 PG (26-34); Mean Corpuscular Volume 98.2 fL (80-100); Monocytes Percent Auto 14.6 % (3-14); Neutrophils Absolute Auto 4400 /uL (3000-5900); Neutrophils Percent Auto 66.1 % (50-75); Platelet Count 339 X10^3/uL (150-400); Red Blood Cell Count 4.22 X10^6/uL (4.0-5.2); Red Cell Distribution Width 14.8 % (11.6-14.8); White Blood Cell Count 6.6 X10^3/uL (4.5-11.0)
[2018-11-04 10:16] LABS: Alanine Aminotransferase 29 IU/L (9-52); Albumin Globulin Ratio 1.1 (1.0-2.8); Alkaline Phosphatase 85 U/L (38-126); Aspartate Aminotransferase 40 IU/L (14-36); BUN Creatinine Ratio 24.4 (6-22); Bilirubin Total 0.7 mg/dL (0.2-1.3); Blood Urea Nitrogen 22 mg/dL (7-17); Calcium 9.6 mg/dL (8.4-10.2); Carbon Dioxide 34 mmol/L (22-32); Chloride 96 mmol/L (98-107); Estimated Glomerular Filt Rate > 60.0 mL/min (>60); Globulin 3.5 g/dL (1.7-4.1); Glucose 72 mg/dL (80-110); HEMOLYSIS < 15 (0-50); Potassium 4.3 mmol/L (3.4-5.1); Sodium 141 mmol/L (137-145); Total Protein 7.5 g/dL (6.3-8.2)
== END ==
LOC: LAB 08:41
PROVIDERS: Family Provider Family Medicine; PCP Family Medicine; Visit Provider Nurse Practitioner Family
DX: I63.9 Cerebral infarction, unspecified (principal)
CPT/HCPCS: 36415; 80053; 85025

== ENCOUNTER → 2018-12-22 12:26 | Outpatient (CLI) | payer MEDICARE, OTHER, SELFPAY ==
--- NOTE | 2018-12-22 | DI.US.S_ITS ---
PROCEDURE: US CAROTID DOPPLER BI INDICATIONS: Peripheral vascular disease, unspecified TECHNIQUE: Color and pulse Doppler interrogation was performed of both carotid systems, with image documentation and velocity measurements. COMPARISON: None. FINDINGS: Stenosis calculations are based on SRU (Society of Radiologists in Ultrasound) criteria. Right side: Brachial blood pressure: Not obtained. Common carotid artery peak systolic velocity: 72 cm/sec. Internal carotid artery peak systolic velocity: 82 cm/sec. Internal carotid artery end diastolic velocity: 22 cm/sec. External carotid artery peak systolic velocity: 75 cm/sec. ICA/CCA peak systolic ratio: 1.1. Dietrich scale imaging description: Mild plaque. Percent internal carotid artery stenosis: Less than 50%. Vertebral artery: Flow direction is antegrade. Left side: Brachial blood pressure: Not obtained. Common carotid artery peak systolic velocity: 58 cm/sec. Internal carotid artery peak systolic velocity: 69 cm/sec. Internal carotid artery end diastolic velocity: 15 cm/sec. External carotid artery peak systolic velocity: 85 cm/sec. ICA/CCA peak systolic ratio: 1.2. Dietrich scale imaging description: Mild scattered plaque. Percent internal carotid artery stenosis: Less than 50%. Vertebral artery: Flow direction is antegrade. IMPRESSION: Less than 50% bilateral internal carotid artery stenosis. Dictated by: Jimbo Verduzco [facility] Interpreted: Rick Justice MD on 12/22/2018 at 15:06 Approved by: Rick Justice M.D. on 12/22/2018 at 17:09
== END ==
PROVIDERS: Family Provider Family Medicine; PCP Family Medicine; Visit Provider Nurse Practitioner
DX: I73.9 Peripheral vascular disease, unspecified (principal); I65.23 Occlusion and stenosis of bilateral carotid arteries
CPT/HCPCS: 93880

== ENCOUNTER 2019-04-27 11:42 | Emergency (ER) | payer MEDICARE, OTHER, SELFPAY ==
[2019-04-27] VITALS (8 sets, daily range): BP systolic 97–136; BP diastolic 21–81; PULSE 30–55; RESP 14–32; TEMP 36.4–37.1; O2SAT 95–100
--- NOTE | 2019-04-27 11:56 | DI.RAD.S_ITS ---
PROCEDURE: XR CHEST 1V INDICATIONS: chest pain TECHNIQUE: One view of the chest was acquired. COMPARISON: [facility], , XR CHEST 1V, 10/24/2018, 12:38. [facility], , CHEST 2 VIEW, 05/07/2017, 15:32. FINDINGS: Surgical changes and devices: None. Lungs and pleura: Lungs are clear considering reduced inspiratory volume. No pleural effusions or pneumothorax. Mediastinum: Mediastinal contours appear normal. Heart size is at the upper limits of normal. Bones and chest wall: No suspicious bony lesions. Overlying soft tissues appear unremarkable. IMPRESSION: Heart size at the upper limits of normal but the inspiratory volume is reduced. No definite source of chest pain is seen. Dictated by: Rick Justice M.D. on 04/27/2019 at 12:24 Approved by: Rick Justice M.D. on 04/27/2019 at 12:24
--- NOTE | 2019-04-27 12:10 | DI.CT.S_ITS ---
PROCEDURE: CT HEAD/BRAIN WO CON INDICATIONS: hit head fall while on michael oquendoa- nurse to go w/ TECHNIQUE: Noncontrast 4.5 mm thick angled axial sections acquired from the foramen magnum to the vertex, with coronal and sagittal reformats. For radiation dose reduction, the following was used: automated exposure control, adjustment of mA and/or kV according to patient size. COMPARISON: [facility], CT, CT HEAD/BRAIN WO CON, 10/27/2018, 18:56. FINDINGS: Image quality: Excellent except for mild patient motion during image acquisition for several scan slices. CSF spaces: Basal cisterns are patent. No extra-axial fluid collections. Ventricles are normal in size and shape. Brain: No midline shift. No intracranial masses or hemorrhage. Dietrich-white matter interface is normal. Skull and face: Calvarium and visualized facial bones are intact, without suspicious lesions. There is a left frontal scalp contusion, acute in appearance. Sinuses: Visualized sinuses and mastoids are clear. IMPRESSION: No brain parenchymal change from prior examination in October of last year. Note is made of a left frontal scalp contusion without underlying skull fracture. Dictated by: Rick Justice M.D. on 04/27/2019 at 12:27 Approved by: Rick Justice M.D. on 04/27/2019 at 12:29
--- NOTE | 2019-04-27 12:23 | ED.SYNCOPE ---
HPI - Syncope General Chief Complaint: Trauma Stated Complaint: Pulse 30 - fell Time Seen by Provider: 04/27/19 12:04 Source: patient Mode of arrival: ambulatory Limitations: no limitations History of Present Illness HPI narrative: Patient comes emergency department complaining of lightheadedness today. Patient states she sat up from a laying position and became lightheaded and fell over, hitting her head. She states she has a wound on her head, but that she did not lose consciousness. Patient is on Xarelto for atrial fibrillation, and has noticed a large bruise on her head since she fell. Patient denies any focal neurologic deficits. No chest pain or shortness of breath. Patient denies any fevers or cough. No dysuria. No abdominal pain, nausea, or vomiting. No diarrhea. Patient has a history of an ablation, which worked for some time, but says dates now that her AFib has come back. Patient states she is on metoprolol for this, but that her heart rate frequently gets too low. Related Data Home Medications Medication Instructions Recorded Confirmed aspirin 81 mg PO DAILY PRN #0 06/16/17 04/27/19 atorvastatin [Lipitor] 40 mg PO DAILY #0 06/16/17 04/27/19 digoxin [Lanoxin] 0.125 mg PO DAILY #0 06/16/17 04/27/19 furosemide 40 mg PO DAILY PRN #0 06/16/17 04/27/19 potassium chloride [Klor-Con 10] 20 meq PO QD-BID PRN #0 06/16/17 04/27/19 spironolactone 12.5 mg PO DAILY #0 06/16/17 04/27/19 sulfasalazine 1,000 mg PO BID #0 06/16/17 04/27/19 diphenhydramine-acetaminophen 1 tab PO BEDTIME PRN 10/24/18 04/27/19 [Tylenol PM Extra Strength] escitalopram oxalate 10 mg PO DAILY 10/24/18 04/27/19 rivaroxaban 20 mg PO QPM 10/24/18 04/27/19 Vitamin D3 1 tab PO DAILY 04/27/19 04/27/19 cranberry extract 1 dose PO DAILY 04/27/19 04/27/19 lisinopril 2.5 mg PO DAILY 04/27/19 04/27/19 Previous Rx's Medication Instructions Recorded diltiazem HCl 180 mg PO DAILY #90 cap 10/27/18 metoprolol succinate 50 mg PO BID #60 tab 10/27/18 Allergies Allergy/AdvReac Type Severity Reaction Status Date / Time No Known Drug Allergies Allergy Verified 04/27/19 11:55 Review of Systems Constitutional Denies chills, Denies fever(s), Denies lethargy and Denies weakness Eyes Denies change in vision, Denies eye discharge, Denies irritation and Denies loss of vision ENT Ears, Nose, Mouth, and Throat: Denies change in voice, Denies neck pain and Denies sore throat Cardiovascular Denies chest pain, Denies irregular heart rhythm, Denies lightheadedness, Denies palpitations, Denies dyspnea, Denies dyspnea on exertion and Denies orthopnea Respiratory Denies cough, Denies dyspnea, Denies dyspnea on exertion and Denies wheezing Gastrointestinal Gastrointestinal: Denies abdominal pain, Denies change in bowel habits, Denies diarrhea, Denies nausea and Denies vomiting Genitourinary Denies hematuria, Denies flank pain, Denies urinary incontinence and Denies urinary urgency Musculoskeletal Denies neck pain Integumentary/Breasts Denies pruritus, Denies erythema, Denies rash and Denies wounds Neurologic Denies confusion, Denies loss of vision and Denies weakness Psychiatric Denies anxiety, Denies confusion, Denies depression, Denies homicidal ideation and Denies suicidal ideation Endocrine Denies palpitations Hematologic/Lymphatic Denies easy bruising Allergic/Immunologic Denies wheezing [facility] Social History (Updated 10/24/18 @ 14:32 by Marcos Roy DO) household members: spouse and family lives independently: Yes Smoking Status: Former smoker alcohol intake: current Exam Initial Vital Signs Initial Vital Signs: Vital Signs Temperature 97.6 F 04/27/19 11:45 Pulse Rate 30 L 04/27/19 11:45 Respiratory Rate 20 04/27/19 11:45 Blood Pressure 109/54 L 04/27/19 11:45 Pulse Oximetry 100 04/27/19 11:45 Const General: cooperative and well developed Nutritional Appearance: well nourished Orientation: alert, awake, oriented x3 and not confused [facility] Head: normocephalic and laceration (3 cm, L parietal area, curvilinear. No foreign body.) Ears: external ears normal Nose: external nose normal and No nasal discharge Face and sinus: sinuses nontender, face symmetric, no sinus tenderness and No dry mucous membranes Mouth: oral mucosae normal and moist mucous membranes Teeth and gingiva: dentition normal Throat: tonsils normal and uvula midline Eyes General: appearance normal, both eyes and all related structures Eyelids: eyelids normal Conjunctivae: conjunctivae normal Sclera: sclerae normal Pupils: PERRL EOM: EOM intact bilaterally Neck Neck: normal visual inspection, trachea midline, No lymphadenopathy, No midline deformity and No JVD Lymphatic: No lymphedema Chest Chest: normal inspection of the chest Resp Effort & Inspection: normal respiratory effort, able to speak in complete sentences, no respiratory distress and no use of accessory muscles Auscultation: clear to auscultation bilaterally, no rales, no rhonchi and no wheezes Cardio Rate: bradycardic Rhythm: abnormal rhythm irregularly irregular Heart Sounds: no click, no gallops, no murmurs and no rubs Pulses: normal peripheral pulses GI Inspection: non-distended Palpation: soft, no hepatosplenomegaly, No guarding, No pulsatile mass and No tender Auscultation: normal bowel sounds Back/Spine/Pelvis Back: No CVA tenderness Cervical Spine: cervical ROM normal and No pain with cervical ROM Thoracic/Lumbar Spine: thoracic and lumbar spine normal to inspection Skin General: no rashes or lesions noted, No jaundice and No petechiae Neuro General: alert, oriented x3, gait normal and no focal motor deficits Speech: speech normal Extrem General: full ROM, no clubbing, cyanosis or edema, no pedal edema and no calf tenderness Psych Appearance: well kempt Mental Status: mental status grossly normal Attitude: cooperative Thought Content: normal and suicidality Judgment: judgment good Procedures Laceration Repair Laceration 1: Site: scalp Side (If applicable): left Size (cm): 3 Description: linear Depth: simple, single layer Local Anesthetic: lidocaine 2% Amount of anesthesia used (mL): 6 Pre-repair: wound explored, irrigated extensively and deep structures intact Skin layer closed with: rahat Number of sutures: 8 (Rahat) Course Course Narrative: Patient was worked up for both her bradycardia and for the fall she had taken. CT scan was performed of the head, was found to be unremarkable for acute findings. Patient's laboratory studies were also unremarkable. The patient was given 0.5 mg of atropine IV in the emergency department with no change in her heart rate, which had been steadily in the mid 20s to low 30s throughout the patient's stay. The patient was borderline normotensive and hypotensive, with systolic blood pressure ranging from the 90s to low 100s. I did feel that the patient should be transferred to [facility] in [place], where her cardiology group is. I spoke with Dr. Mancilla, who is on-call for Cardiology, and he did accept the patient to his service. Patient remained in our emergency department awaiting availability of ambulance transfer. Shortly before medics arrived, patient's heart rate had improved to the 50s. Patient reported feeling better after this. I still felt she should be transferred, as Cardiology was considering pacemaker placement, and it was not clear whether patient would descend back in to severe bradycardia again, with symptomatology. Orders Ordered: Discontinued Medications Atropine Sulfate (Atropine) 0.5 mg IV NOW ONE Stop: 04/27/19 12:28 Last Admin: 04/27/19 12:38 Dose: 0.5 mg Glucagon (Glucagen) 1 mg IV NOW ONE Stop: 04/27/19 12:28 Last Admin: 04/27/19 12:39 Dose: Not Given Vital Signs - 8 hr 04/27/19 11:45 Temperature 97.6 F Pulse Rate 30 L Respiratory Rate 20 Blood Pressure 109/54 L Pulse Oximetry 100 MDM - Syncope Medical Records Attestation: I reviewed the patient's medical records. Lab Data Attestation: I reviewed the patient's lab results. Result diagrams: 04/27/19 12:05 04/27/19 12:05 Lab Results 04/27/19 04/27/19 04/27/19 Range/Units 12:05 12:05 12:05 WBC 11.8 H (4.5-11.0) X10^3/uL RBC 3.75 L (4.0-5.2) X10^6/uL Hgb 11.9 L (12.0-16.0) g/dL Hct 35.8 L (36-46) % MCV 95.4 (80-100) fL MCH 31.6 (26-34) PG MCHC 33.1 (30-36) % RDW 14.5 (11.6-14.8) % Plt Count 266 (150-400) X10^3/uL Neut % (Auto) 77.9 H (50-75) % Lymph % (Auto) 10.6 L (25-40) % [place] % (Auto) 9.9 (3-14) % Eos % (Auto) 1.2 L (2-4) % Baso % (Auto) 0.4 (0-2) % Neut # (Auto) 9200 H (2597-2313) /uL Lymph # (Auto) 1200 (7763-4255) /uL [place] # (Auto) 1200 H (0-900) /uL Eos # (Auto) 100 (0-450) /uL Baso # (Auto) 100 (0-100) /uL PT 32.3 H (10.1-12.7) SECONDS INR 2.8 H (0.9-1.3) APTT 35 D (26.4-36.2) SECONDS Sodium 138 (137-145) mmol/L Potassium 5.6 H (3.4-5.1) mmol/L Chloride 102 (98-107) mmol/L Carbon Dioxide 28 (22-32) mmol/L BUN 31 H (7-17) mg/dL Creatinine 1.10 H (0.52-1.04) mg/dL Estimated GFR 48.0 L (>60) mL/min BUN/Creatinine Ratio 28.2 H (6-22) Glucose 106 (80-110) mg/dL Calcium 9.4 (8.4-10.2) mg/dL Phosphorus 4.4 H (2.8-4.1) mg/dL Magnesium 1.9 (1.6-2.3) mg/dL Total Bilirubin 0.7 (0.2-1.3) mg/dL AST 41 H (14-36) IU/L ALT 18 (9-52) IU/L Alkaline Phosphatase 69 (38-126) U/L Total Creatine Kinase 50 (30-135) U/L CK-MB (CK-2) TNP CK-MB (CK-2) Rel Index TNP Troponin I < 0.012 (0.01-0.034) ng/mL B-Natriuretic Peptide 270 H (<100) Total Protein 7.5 (6.3-8.2) g/dL Albumin 4.0 (3.5-5.0) g/dL Globulin 3.5 (1.7-4.1) g/dL Albumin/Globulin Ratio 1.1 (1.0-2.8) Lipase 130 (23-300) U/L Blood Type Antibody Screen 04/27/19 Range/Units 12:05 WBC (4.5-11.0) X10^3/uL RBC (4.0-5.2) X10^6/uL Hgb (12.0-16.0) g/dL Hct (36-46) % MCV (80-100) fL MCH (26-34) PG MCHC (30-36) % RDW (11.6-14.8) % Plt Count (150-400) X10^3/uL Neut % (Auto) (50-75) % Lymph % (Auto) (25-40) % [place] % (Auto) (3-14) % Eos % (Auto) (2-4) % Baso % (Auto) (0-2) % Neut # (Auto) (1664-9234) /uL Lymph # (Auto) (0295-5456) /uL [place] # (Auto) (0-900) /uL Eos # (Auto) (0-450) /uL Baso # (Auto) (0-100) /uL PT (10.1-12.7) SECONDS INR (0.9-1.3) APTT (26.4-36.2) SECONDS Sodium (137-145) mmol/L Potassium (3.4-5.1) mmol/L Chloride (98-107) mmol/L Carbon Dioxide (22-32) mmol/L BUN (7-17) mg/dL Creatinine (0.52-1.04) mg/dL Estimated GFR (>60) mL/min BUN/Creatinine Ratio (6-22) Glucose (80-110) mg/dL Calcium (8.4-10.2) mg/dL Phosphorus (2.8-4.1) mg/dL Magnesium (1.6-2.3) mg/dL Total Bilirubin (0.2-1.3) mg/dL AST (14-36) IU/L ALT (9-52) IU/L Alkaline Phosphatase (38-126) U/L Total Creatine Kinase (30-135) U/L CK-MB (CK-2) CK-MB (CK-2) Rel Index Troponin I (0.01-0.034) ng/mL B-Natriuretic Peptide (<100) Total Protein (6.3-8.2) g/dL Albumin (3.5-5.0) g/dL Globulin (1.7-4.1) g/dL Albumin/Globulin Ratio (1.0-2.8) Lipase (23-300) U/L Blood Type A Positive Antibody Screen Negative Imaging Data CT scan - head: Radiologist's impression: [facility] DATE TYPE STATUS AUTHOR Hx 04/27/19 12:10 Rick Justice 04/27/19 11:56 Rick Justice 12/22/18 00:00 Rick Justice 10/28/18 00:00 Nolberto Don 10/27/18 23:40 10/27/18 18:38 Sanjeev Yao 10/24/18 15:03 10/24/18 12:35 Hernan Isabel 10/24/18 00:00 Kirt Song Sally W 78, 1940 DEP ER, ED.LOC - Main ED 147.32cm Trauma Search Chart NF - Not included in interaction checking ONSET 04/27/19 18:00 Ximena Beckett F 1940 [place] [address] CT Scan Report Signed Patient: SujitXimena WMR#: [id number] : 1940Acct:[id number] Age/Sex: 78 / FDate of Service: 04/27/19 Loc: ED Accession Number: [id number] Procedure: CT head/brain wo con Ordering Provider: Manda Melo MD PROCEDURE: CT HEAD/BRAIN WO CON INDICATIONS: hit head fall while on [facility]- nurse to go w/ TECHNIQUE: Noncontrast 4.5 mm thick angled axial sections acquired from the foramen magnum to the vertex, with coronal and sagittal reformats. For radiation dose reduction, the following was used: automated exposure control, adjustment of mA and/or kV according to patient size. COMPARISON: [facility], CT, CT HEAD/BRAIN WO CON, 10/27/2018, 18:56. FINDINGS: Image quality: Excellent except for mild patient motion during image acquisition for several scan slices. CSF spaces: Basal cisterns are patent. No extra-axial fluid collections. Ventricles are normal in size and shape. Brain: No midline shift. No intracranial masses or hemorrhage. Dietrich-white matter interface is normal. Skull and face: Calvarium and visualized facial bones are intact, without suspicious lesions. There is a left frontal scalp contusion, acute in appearance. Sinuses: Visualized sinuses and mastoids are clear. IMPRESSION: No brain parenchymal change from prior examination in October of last year. Note is made of a left frontal scalp contusion without underlying skull fracture. Dictated by: Rick Justice M.D. on 04/27/2019 at 12:27 Approved by: Rick Justice M.D. on 04/27/2019 at 12:29 Chest x-ray: Radiologist's impression: Chart [facility] Diagn[facility] DATE TYPE STATUS AUTHOR Hx 04/27/19 12:10 Rick Justice 04/27/19 11:56 Rick Justice 12/22/18 00:00 Rick Justice 10/28/18 00:00 Nolberto Don 10/27/18 23:40 10/27/18 18:38 Sanjeev Yao 10/24/18 15:03 10/24/18 12:35 Hernan Isabel 10/24/18 00:00 Kirt Song Sally W 78, 1940 DEP ER, ED.LOC - Main ED 147.32cm Trauma Search Chart NF - Not included in interaction checking ONSET 04/27/19 18:00 Ximena Beckett 78 F [address] [address] XRay Report Signed Patient: SujitXimena WMR#: [id number] : 1940Acct:[id number] Age/Sex: 78 / FDate of Service: 04/27/19 Loc: ED Accession Number: [id number] Procedure: XR chest 1V Ordering Provider: Manda Melo MD PROCEDURE: XR CHEST 1V INDICATIONS: chest pain TECHNIQUE: One view of the chest was acquired. COMPARISON: [facility], TAL, XR CHEST 1V, 10/24/2018, 12:38. [facility], , CHEST 2 VIEW, 05/07/2017, 15:32. FINDINGS: Surgical changes and devices: None. Lungs and pleura: Lungs are clear considering reduced inspiratory volume. No pleural effusions or pneumothorax. Mediastinum: Mediastinal contours appear normal. Heart size is at the upper limits of normal. Bones and chest wall: No suspicious bony lesions. Overlying soft tissues appear unremarkable. IMPRESSION: Heart size at the upper limits of normal but the inspiratory volume is reduced. No definite source of chest pain is seen. Dictated by: Rick Justice M.D. on 04/27/2019 at 12:24 Approved by: Rick Justice M.D. on 04/27/2019 at 12:24 ECG Data Attestation: I personally reviewed and interpreted this ECG as follows: (See below) Interpretation: Twelve lead EKG performed on 04/27/2019, as follows: Irregular ventricular rhythm with a bradycardic rate P waves absent ND intervals absent Nonspecific ST T wave changes Interpretation: Atrial fibrillation with severe bradycardia; no signs of acute ischemia; abnormal EKG as interpreted by ED MD Critical Care Time Critical Care Time: Yes Total Critical Care Time: 45 Attestation: Critical care time was necessary, due to high probability of imminent decline and . Diagnosis: Severe symptomatic bradycardia. Critical care time is exclusive of separately billable procedures. Critical care time included: Interviewing and examining the patient, ordering and reviewing laboratory studies, ordering and reviewing imaging studies, evaluating cardiac output, evaluating oxygen saturation, discussion with consultants, discussion with family, re-examining the patient, and documentation. Discharge Plan Departure Patient Disposition: [facility] Clinical Impression: Symptomatic bradycardia, Postural dizziness with near syncope Atrial fibrillation Qualifiers: Atrial fibrillation type: chronic Qualified Code(s): I48.2 - Chronic atrial fibrillation Laceration of scalp Qualifiers: Encounter type: initial encounter Qualified Code(s): S01.01XA - Laceration without foreign body of scalp, initial encounter Discharge Date/Time: 04/27/19 18:19 Interventions: ED Discharge Assessment Last Done: 04/27/19 18:18 Prescriptions: No Action sulfasalazine 500 MG tablet 1,000 mg PO BID Qty: 0 RF: 0 digoxin [Lanoxin] 125 MCG tablet 0.125 mg PO DAILY Qty: 0 RF: 0 furosemide 40 MG tablet 40 mg PO DAILY PRN (Reason: Edema) Qty: 0 RF: 0 atorvastatin [Lipitor] 40 MG tablet 40 mg PO DAILY Qty: 0 RF: 0 spironolactone 25 MG tablet 12.5 mg PO DAILY Qty: 0 RF: 0 potassium chloride [Klor-Con 10] 10 MEQ tablet extended release 20 meq PO QD-BID PRN (Reason: with furosemide) Qty: 0 RF: 0 aspirin 81 MG tablet,delayed release (DR/EC) 81 mg PO DAILY PRN (Reason: Headache) Qty: 0 RF: 0 lisinopril 2.5 mg tablet 2.5 mg PO DAILY RF: 0 Vitamin D3 1 tab PO DAILY RF: 0 cranberry extract 1 dose PO DAILY RF: 0 escitalopram oxalate 10 mg Tablet 10 mg PO DAILY RF: 0 diphenhydramine-acetaminophen [Tylenol PM Extra Strength] 25-500 mg Tablet 1 tab PO BEDTIME PRN (Reason: Sleep) RF: 0 rivaroxaban 20 mg Tablet 20 mg PO QPM RF: 0 metoprolol succinate 50 mg Tablet Extended Release 24 Hr 50 mg PO BID Qty: 60 RF: 0 diltiazem HCl 180 mg Capsule,Extended Release 24hr 180 mg PO DAILY Qty: 90 RF: 0 Referrals: Pete Smalls MD [Primary Care Provider] -
[2019-04-27 12:27] LABS: Add Manual Diff / Slide Review NO; Basophils Absolute Auto 100 /uL (0-100); Basophils Percent Auto 0.4 % (0-2); Eosinophils Absolute Auto 100 /uL (0-450); Eosinophils Percent Auto 1.2 % (2-4); Hematocrit 35.8 % (36-46); Hemoglobin 11.9 g/dL (12.0-16.0); Lymphocytes Absolute Auto 1200 /uL (1100-4500); Lymphocytes Percent Auto 10.6 % (25-40); Mean Corpuscular HGB Conc 33.1 % (30-36); Mean Corpuscular Hemoglobin 31.6 PG (26-34); Mean Corpuscular Volume 95.4 fL (80-100); Monocytes Absolute Auto 1200 /uL (0-900); Monocytes Percent Auto 9.9 % (3-14); Neutrophils Absolute Auto 9200 /uL (1500-7000); Neutrophils Percent Auto 77.9 % (50-75); Platelet Count 266 X10^3/uL (150-400); Red Blood Cell Count 3.75 X10^6/uL (4.0-5.2); Red Cell Distribution Width 14.5 % (11.6-14.8); White Blood Cell Count 11.8 X10^3/uL (4.5-11.0)
--- NOTE | 2019-04-27 12:27 | ED_ITS ---
HPI - Syncope General Chief Complaint: Trauma Stated Complaint: Pulse 30 - fell Time Seen by Provider: 04/27/19 12:04 Source: patient Mode of arrival: ambulatory Limitations: no limitations History of Present Illness HPI narrative: Patient comes emergency department complaining of lightheadedness today. Patient states she sat up from a laying position and became lightheaded and fell over, hitting her head. She states she has a wound on her head, but that she did not lose consciousness. Patient is on Xarelto for atrial fibrillation, and has noticed a large bruise on her head since she fell. Patient denies any focal neurologic deficits. No chest pain or shortness of breath. Patient denies any fevers or cough. No dysuria. No abdominal pain, nausea, or vomiting. No diarrhea. Patient has a history of an ablation, which worked for some time, but says dates now that her AFib has come back. Patient states she is on metoprolol for this, but that her heart rate frequently gets too low. Related Data Home Medications Medication Instructions Recorded Confirmed aspirin 81 mg PO DAILY PRN #0 06/16/17 04/27/19 atorvastatin [Lipitor] 40 mg PO DAILY #0 06/16/17 04/27/19 digoxin [Lanoxin] 0.125 mg PO DAILY #0 06/16/17 04/27/19 furosemide 40 mg PO DAILY PRN #0 06/16/17 04/27/19 potassium chloride [Klor-Con 10] 20 meq PO QD-BID PRN #0 06/16/17 04/27/19 spironolactone 12.5 mg PO DAILY #0 06/16/17 04/27/19 sulfasalazine 1,000 mg PO BID #0 06/16/17 04/27/19 diphenhydramine-acetaminophen 1 tab PO BEDTIME PRN 10/24/18 04/27/19 [Tylenol PM Extra Strength] escitalopram oxalate 10 mg PO DAILY 10/24/18 04/27/19 rivaroxaban 20 mg PO QPM 10/24/18 04/27/19 Vitamin D3 1 tab PO DAILY 04/27/19 04/27/19 cranberry extract 1 dose PO DAILY 04/27/19 04/27/19 lisinopril 2.5 mg PO DAILY 04/27/19 04/27/19 Previous Rx's Medication Instructions Recorded diltiazem HCl 180 mg PO DAILY #90 cap 10/27/18 metoprolol succinate 50 mg PO BID #60 tab 10/27/18 Allergies Allergy/AdvReac Type Severity Reaction Status Date / Time No Known Drug Allergies Allergy Verified 04/27/19 11:55 Review of Systems Constitutional Denies chills, Denies fever(s), Denies lethargy and Denies weakness Eyes Denies change in vision, Denies eye discharge, Denies irritation and Denies loss of vision ENT Ears, Nose, Mouth, and Throat: Denies change in voice, Denies neck pain and Denies sore throat Cardiovascular Denies chest pain, Denies irregular heart rhythm, Denies lightheadedness, Denies palpitations, Denies dyspnea, Denies dyspnea on exertion and Denies orthopnea Respiratory Denies cough, Denies dyspnea, Denies dyspnea on exertion and Denies wheezing Gastrointestinal Gastrointestinal: Denies abdominal pain, Denies change in bowel habits, Denies diarrhea, Denies nausea and Denies vomiting Genitourinary Denies hematuria, Denies flank pain, Denies urinary incontinence and Denies urinary urgency Musculoskeletal Denies neck pain Integumentary/Breasts Denies pruritus, Denies erythema, Denies rash and Denies wounds Neurologic Denies confusion, Denies loss of vision and Denies weakness Psychiatric Denies anxiety, Denies confusion, Denies depression, Denies homicidal ideation and Denies suicidal ideation Endocrine Denies palpitations Hematologic/Lymphatic Denies easy bruising Allergic/Immunologic Denies wheezing [facility] Social History (Updated 10/24/18 @ 14:32 by Marcos Roy DO) household members: spouse and family lives independently: Yes Smoking Status: Former smoker alcohol intake: current Exam Initial Vital Signs Initial Vital Signs: Vital Signs Temperature 97.6 F 04/27/19 11:45 Pulse Rate 30 L 04/27/19 11:45 Respiratory Rate 20 04/27/19 11:45 Blood Pressure 109/54 L 04/27/19 11:45 Pulse Oximetry 100 04/27/19 11:45 Const General: cooperative and well developed Nutritional Appearance: well nourished Orientation: alert, awake, oriented x3 and not confused [facility] Head: normocephalic and laceration (3 cm, L parietal area, curvilinear. No foreign body.) Ears: external ears normal Nose: external nose normal and No nasal discharge Face and sinus: sinuses nontender, face symmetric, no sinus tenderness and No dry mucous membranes Mouth: oral mucosae normal and moist mucous membranes Teeth and gingiva: dentition normal Throat: tonsils normal and uvula midline Eyes General: appearance normal, both eyes and all related structures Eyelids: eyelids normal Conjunctivae: conjunctivae normal Sclera: sclerae normal Pupils: PERRL EOM: EOM intact bilaterally Neck Neck: normal visual inspection, trachea midline, No lymphadenopathy, No midline deformity and No JVD Lymphatic: No lymphedema Chest Chest: normal inspection of the chest Resp Effort & Inspection: normal respiratory effort, able to speak in complete sentences, no respiratory distress and no use of accessory muscles Auscultation: clear to auscultation bilaterally, no rales, no rhonchi and no wheezes Cardio Rate: bradycardic Rhythm: abnormal rhythm irregularly irregular Heart Sounds: no click, no gallops, no murmurs and no rubs Pulses: normal peripheral pulses GI Inspection: non-distended Palpation: soft, no hepatosplenomegaly, No guarding, No pulsatile mass and No tender Auscultation: normal bowel sounds Back/Spine/Pelvis Back: No CVA tenderness Cervical Spine: cervical ROM normal and No pain with cervical ROM Thoracic/Lumbar Spine: thoracic and lumbar spine normal to inspection Skin General: no rashes or lesions noted, No jaundice and No petechiae Neuro General: alert, oriented x3, gait normal and no focal motor deficits Speech: speech normal Extrem General: full ROM, no clubbing, cyanosis or edema, no pedal edema and no calf tenderness Psych Appearance: well kempt Mental Status: mental status grossly normal Attitude: cooperative Thought Content: normal and suicidality Judgment: judgment good Procedures Laceration Repair Laceration 1: Site: scalp Side (If applicable): left Size (cm): 3 Description: linear Depth: simple, single layer Local Anesthetic: lidocaine 2% Amount of anesthesia used (mL): 6 Pre-repair: wound explored, irrigated extensively and deep structures intact Skin layer closed with: rahat Number of sutures: 8 (Rahat) Course Course Narrative: Patient was worked up for both her bradycardia and for the fall she had taken. CT scan was performed of the head, was found to be unremarkable for acute findings. Patient's laboratory studies were also unremarkable. The patient was given 0.5 mg of atropine IV in the emergency department with no change in her heart rate, which had been steadily in the mid 20s to low 30s throughout the patient's stay. The patient was borderline normotensive and hypotensive, with systolic blood pressure ranging from the 90s to low 100s. I did feel that the patient should be transferred to [facility] in [place], where her cardiology group is. I spoke w ith Dr. Mancilla, who is on-call for Cardiology, and he did accept the patient to his service. Patient remained in our emergency department awaiting availability of ambulance transfer. Shortly before medics arrived, patient's heart rate had improved to the 50s. Patient reported feeling better after this. I still felt she should be transferred, as Cardiology was considering pacemaker placement, and it was not clear whether patient would descend back in to severe bradycardia again, with symptomatology. Orders Ordered: Discontinued Medications Atropine Sulfate (Atropine) 0.5 mg IV NOW ONE Stop: 04/27/19 12:28 Last Admin: 04/27/19 12:38 Dose: 0.5 mg Glucagon (Glucagen) 1 mg IV NOW ONE Stop: 04/27/19 12:28 Last Admin: 04/27/19 12:39 Dose: Not Given Vital Signs - 8 hr 04/27/19 11:45 Temperature 97.6 F Pulse Rate 30 L Respiratory Rate 20 Blood Pressure 109/54 L Pulse Oximetry 100 MDM - Syncope Medical Records Attestation: I reviewed the patient's medical records. Lab Data Attestation: I reviewed the patient's lab results. Result diagrams: 04/27/19 12:05 04/27/19 12:05 Lab Results 04/27/19 04/27/19 04/27/19 Range/Units 12:05 12:05 12:05 WBC 11.8 H (4.5-11.0) X10^3/uL RBC 3.75 L (4.0-5.2) X10^6/uL Hgb 11.9 L (12.0-16.0) g/dL Hct 35.8 L (36-46) % MCV 95.4 (80-100) fL MCH 31.6 (26-34) PG MCHC 33.1 (30-36) % RDW 14.5 (11.6-14.8) % Plt Count 266 (150-400) X10^3/uL Neut % (Auto) 77.9 H (50-75) % Lymph % (Auto) 10.6 L (25-40) % [place] % (Auto) 9.9 (3-14) % Eos % (Auto) 1.2 L (2-4) % Baso % (Auto) 0.4 (0-2) % Neut # (Auto) 9200 H (2355-8397) /uL Lymph # (Auto) 1200 (7821-3856) /uL [place] # (Auto) 1200 H (0-900) /uL Eos # (Auto) 100 (0-450) /uL Baso # (Auto) 100 (0-100) /uL PT 32.3 H (10.1-12.7) SECONDS INR 2.8 H (0.9-1.3) APTT 35 D (26.4-36.2) SECONDS Sodium 138 (137-145) mmol/L Potassium 5.6 H (3.4-5.1) mmol/L Chloride 102 (98-107) mmol/L Carbon Dioxide 28 (22-32) mmol/L BUN 31 H (7-17) mg/dL Creatinine 1.10 H (0.52-1.04) mg/dL Estimated GFR 48.0 L (>60) mL/min BUN/Creatinine Ratio 28.2 H (6-22) Glucose 106 (80-110) mg/dL Calcium 9.4 (8.4-10.2) mg/dL Phosphorus 4.4 H (2.8-4.1) mg/dL Magnesium 1.9 (1.6-2.3) mg/dL Total Bilirubin 0.7 (0.2-1.3) mg/dL AST 41 H (14-36) IU/L ALT 18 (9-52) IU/L Alkaline Phosphatase 69 (38-126) U/L Total Creatine Kinase 50 (30-135) U/L CK-MB (CK-2) TNP CK-MB (CK-2) Rel Index TNP Troponin I < 0.012 (0.01-0.034) ng/mL B-Natriuretic Peptide 270 H (<100) Total Protein 7.5 (6.3-8.2) g/dL Albumin 4.0 (3.5-5.0) g/dL Globulin 3.5 (1.7-4.1) g/dL Albumin/Globulin Ratio 1.1 (1.0-2.8) Lipase 130 (23-300) U/L Blood Type Antibody Screen 04/27/19 Range/Units 12:05 WBC (4.5-11.0) X10^3/uL RBC (4.0-5.2) X10^6/uL Hgb (12.0-16.0) g/dL Hct (36-46) % MCV (80-100) fL MCH (26-34) PG MCHC (30-36) % RDW (11.6-14.8) % Plt Count (150-400) X10^3/uL Neut % (Auto) (50-75) % Lymph % (Auto) (25-40) % [place] % (Auto) (3-14) % Eos % (Auto) (2-4) % Baso % (Auto) (0-2) % Neut # (Auto) (6508-9850) /uL Lymph # (Auto) (7334-9023) /uL [place] # (Auto) (0-900) /uL Eos # (Auto) (0-450) /uL Baso # (Auto) (0-100) /uL PT (10.1-12.7) SECONDS INR (0.9-1.3) APTT (26.4-36.2) SECONDS Sodium (137-145) mmol/L Potassium (3.4-5.1) mmol/L Chloride (98-107) mmol/L Carbon Dioxide (22-32) mmol/L BUN (7-17) mg/dL Creatinine (0.52-1.04) mg/dL Estimated GFR (>60) mL/min BUN/Creatinine Ratio (6-22) Glucose (80-110) mg/dL Calcium (8.4-10.2) mg/dL Phosphorus (2.8-4.1) mg/dL Magnesium (1.6-2.3) mg/dL Total Bilirubin (0.2-1.3) mg/dL AST (14-36) IU/L ALT (9-52) IU/L Alkaline Phosphatase (38-126) U/L Total Creatine Kinase (30-135) U/L CK-MB (CK-2) CK-MB (CK-2) Rel Index Troponin I (0.01-0.034) ng/mL B-Natriuretic Peptide (<100) Total Protein (6.3-8.2) g/dL Albumin (3.5-5.0) g/dL Globulin (1.7-4.1) g/dL Albumin/Globulin Ratio (1.0-2.8) Lipase (23-300) U/L Blood Type A Positive Antibody Screen Negative Imaging Data CT scan - head: Radiologist's impression: Chart Viewer Diagnostics DATE TYPE STATUS AUTHOR Hx 04/27/19 12:10 Rick Justice 04/27/19 11:56 Rick Justice 12/22/18 00:00 Rick Justice 10/28/18 00:00 Nolberto Don 10/27/18 23:40 10/27/18 18:38 Sanjeev Yao 10/24/18 15:03 10/24/18 12:35 Hernan Isaebl 10/24/18 00:00 Kirt Song Sally W 78, 1940 DEP ER, ED.LOC - Main ED 147.32cm Trauma Search Chart NF - Not included in interaction checking ONSET 04/27/19 18:00 Ximena Beckett F 1940 [place] [address] CT Scan Report Signed Patient: SujitXimena WMR#: [id number] : 1940Acct:[id number] Age/Sex: 78 / FDate of Service: 04/27/19 Loc: ED Accession Number: [id number] Procedure: CT head/brain wo con Ordering Provider: Manda Melo MD PROCEDURE: CT HEAD/BRAIN WO CON INDICATIONS: hit head fall while on [facility]- nurse to go w/ TECHNIQUE: Noncontrast 4.5 mm thick angled axial sections acquired from the foramen magnum to the vertex, with coronal and sagittal reformats. For radiation dose reduction, the following was used: automated exposure control, adjustment of mA and/or kV according to patient size. COMPARISON: [facility], CT, CT HEAD/BRAIN WO CON, 10/27/2018, 18:56. FINDINGS: Image quality: Excellent except for mild patient motion during image acquisition for several scan slices. CSF spaces: Basal cisterns are patent. No extra-axial fluid collections. Ventricles are normal in size and shape. Brain: No midline shift. No intracranial masses or hemorrhage. Dietrich-white matter interface is normal. Skull and face: Calvarium and visualized facial bones are intact, without suspicious lesions. There is a left frontal scalp contusion, acute in appearance. Sinuses: Visualized sinuses and mastoids are clear. IMPRESSION: No brain parenchymal change from prior examination in October of last year. Note is made of a left frontal scalp contusion without underlying skull fracture. Dictated by: Rick Justice M.D. on 04/27/2019 at 12:27 Approved by: Rick Justice M.D. on 04/27/2019 at 12:29 Chest x-ray: Radiologist's impression: Chart Viewer Diagnostics DATE TYPE STATUS AUTHOR Hx 04/27/19 12:10 Rick Justice 04/27/19 11:56 Rick Justice 12/22/18 00:00 Rick Justice 10/28/18 00:00 Nolberto Don 10/27/18 23:40 10/27/18 18:38 Sanjeev Yao 10/24/18 15:03 10/24/18 12:35 Hernan Isabel 10/24/18 00:00 Kirt Song Sally W 78, 1940 DEP ER, ED.LOC - Main ED 147.32cm Trauma Search Chart NF - Not included in interaction checking ONSET 04/27/19 18:00 Ximena Beckett 78 F 1940 [address] [address] XRay Report Signed Patient: SujitXimena WMR#: [id number] : 1940Acct:[id number] Age/Sex: 78 / FDate of Service: 04/27/19 Loc: ED Accession Number: [id number] Procedure: XR chest 1V Ordering Provider: Manda Melo MD PROCEDURE: XR CHEST 1V INDICATIONS: chest pain TECHNIQUE: One view of the chest was acquired. COMPARISON: [facility], TAL, XR CHEST 1V, 10/24/2018, 12:38. [facility], , CHEST 2 VIEW, 05/07/2017, 15:32. FINDINGS: Surgical changes and devices: None. Lungs and pleura: Lungs are clear considering reduced inspiratory volume. No pleural effusions or pneumothorax. Mediastinum: Mediastinal contours appear normal. Heart size is at the upper limits of normal. Bones and chest wall: No suspicious bony lesions. Overlying soft tissues appear unremarkable. IMPRESSION: Heart size at the upper limits of normal but the inspiratory volume is reduced. No definite source of chest pain is seen. Dictated by: Rick Justice M.D. on 04/27/2019 at 12:24 Approved by: Rick Justice M.D. on 04/27/2019 at 12:24 ECG Data Attestation: I personally reviewed and interpreted this ECG as follows: (See below) Interpretation: Twelve lead EKG performed on 04/27/2019, as follows: Irregular ventricular rhythm with a bradycardic rate P waves absent OH intervals absent Nonspecific ST T wave changes Interpretation: Atrial fibrillation with severe bradycardia; no signs of acute ischemia; abnormal EKG as interpreted by ED MD Critical Care Time Critical Care Time: Yes Total Critical Care Time: 45 Attestation: Critical care time was necessary, due to high probability of imminent decline and . Diagnosis: Severe symptomatic bradycardia. Critical care time is exclusive of separately billable procedures. Critical care time included: Interviewing and examining the patient, ordering and reviewing laboratory studies, ordering and reviewing imaging studies, evaluating cardiac output, evaluating oxygen saturation, discussion with consultants, discussion with family, re-examining the patient, and documentation. Discharge Plan Departure Patient Disposition: [facility] Clinical Impression: Symptomatic bradycardia, Postural dizziness with near syncope Atrial fibrillation Qualifiers: Atrial fibrillation type: chronic Qualified Code(s): I48.2 - Chronic atrial fibrillation Laceration of scalp Qualifiers: Encounter type: initial encounter Qualified Code(s): S01.01XA - Laceration without foreign body of scalp, initial encounter Discharge Date/Time: 04/27/19 18:19 Interventions: ED Discharge Assessment Last Done: 04/27/19 18:18 Prescriptions: No Action sulfasalazine 500 MG tablet 1,000 mg PO BID Qty: 0 RF: 0 digoxin [Lanoxin] 125 MCG tablet 0.125 mg PO DAILY Qty: 0 RF: 0 furosemide 40 MG tablet 40 mg PO DAILY PRN (Reason: Edema) Qty: 0 RF: 0 atorvastatin [Lipitor] 40 MG tablet 40 mg PO DAILY Qty: 0 RF: 0 spironolactone 25 MG tablet 12.5 mg PO DAILY Qty: 0 RF: 0 potassium chloride [Klor-Con 10] 10 MEQ tablet extended release 20 meq PO QD-BID PRN (Reason: with furosemide) Qty: 0 RF: 0 aspirin 81 MG tablet,delayed release (DR/EC) 81 mg PO DAILY PRN (Reason: Headache) Qty: 0 RF: 0 lisinopril 2.5 mg tablet 2.5 mg PO DAILY RF: 0 Vitamin D3 1 tab PO DAILY RF: 0 cranberry extract 1 dose PO DAILY RF: 0 escitalopram oxalate 10 mg Tablet 10 mg PO DAILY RF: 0 diphenhydramine-acetaminophen [Tylenol PM Extra Strength] 25-500 mg Tablet 1 tab PO BEDTIME PRN (Reason: Sleep) RF: 0 rivaroxaban 20 mg Tablet 20 mg PO QPM RF: 0 metoprolol succinate 50 mg Tablet Extended Release 24 Hr 50 mg PO BID Qty: 60 RF: 0 diltiazem HCl 180 mg Capsule,Extended Release 24hr 180 mg PO DAILY Qty: 90 RF: 0 Referrals: Pete Smalls MD [Primary Care Provider] -
[2019-04-27 12:31] LABS: INR 2.8 (0.9-1.3); Prothrombin Time 32.3 SECONDS (10.1-12.7)
[2019-04-27 12:33] LABS: PTT Partial Thromboplastin Tim 35 SECONDS (26.4-36.2)
[2019-04-27] MEDS: ATROPINE 1 MG/10 ML SYRINGE 0.5 MG IV (12:38)
[2019-04-27 12:39] LABS: Alanine Aminotransferase 18 IU/L (9-52); Albumin Globulin Ratio 1.1 (1.0-2.8); Alkaline Phosphatase 69 U/L (38-126); Aspartate Aminotransferase 41 IU/L (14-36); BUN Creatinine Ratio 28.2 (6-22); Bilirubin Total 0.7 mg/dL (0.2-1.3); Blood Urea Nitrogen 31 mg/dL (7-17); Calcium 9.4 mg/dL (8.4-10.2); Carbon Dioxide 28 mmol/L (22-32); Chloride 102 mmol/L (98-107); Creatine Kinase 50 U/L (30-135); Globulin 3.5 g/dL (1.7-4.1); Glucose 106 mg/dL (80-110); Lipase 130 U/L (23-300); Magnesium 1.9 mg/dL (1.6-2.3); Phosphorous 4.4 mg/dL (2.8-4.1); Sodium 138 mmol/L (137-145); Total Protein 7.5 g/dL (6.3-8.2)
[2019-04-27 12:41] LABS: HEMOLYSIS 74 (0-50); Potassium 5.6 mmol/L (3.4-5.1)
[2019-04-27 12:50] LABS: B Type Natriuretic Peptide 270 (<100); Troponin I < 0.012 ng/mL (0.01-0.034)
== END 2019-04-27 18:19 | disposition short-term general hospital (02) ==
PROVIDERS: Emergency Provider Emergency Medicine; Family Provider Family Medicine; PCP Family Medicine
DX: I48.2 Chronic atrial fibrillation (principal); R00.1 Bradycardia, unspecified; R42 Dizziness and giddiness; R55 Syncope and collapse; S01.01XA Laceration without foreign body of scalp, initial encounter; W19.XXXA Unspecified fall, initial encounter
CPT/HCPCS: 12002; 36591; 70450; 71045; 80053; 82550; 83690; 83735; 83880; 84100; 84484; 85025; 85610; 85730; 86850; 86900; 86901; 93005; 96374; 99285; 99291; 99292; J0461; J1610

== ENCOUNTER → 2024-12-17 14:27 | Outpatient (CLI) | payer MEDICARE, OTHER, SELFPAY ==
--- NOTE | 2024-12-17 14:29 | DI.RAD.S_ITS ---
PROCEDURE: XR DEXA AXIAL SKELETON INDICATIONS: Asymptomatic menopausal state COMPARISON: None. FINDINGS: Lumbar Spine L2-L4: Bone mineral density 1.39 g/cm2, T score 2.8,. Left Femoral Neck: Bone mineral density 0.62 g/cm2, T score -2.1. Left Hip: Bone mineral density 0.898 g/cm2, T score -0.4,. Fracture Risk Calculation (when applicable): 10-year fracture risk of a major osteoporotic fracture 14 percent and of a hip fracture 3.9 percent. (T score greater or equal to -1.0 to: NORMAL) (T score from -1.1 to -2.4: OSTEOPENIA) (T score less than or equal to -2.5: OSTEOPOROSIS) IMPRESSION: Osteopenia with elevated fracture risk as above. Follow-up guidelines as follows: Osteoporosis: Consider a repeat DEXA and Vertebral Fracture Assessment (VFA) exam in 2 years or sooner if medically necessary, to reassess this patient's status. Osteopenia: Consider a repeat DEXA in 2-3 years to reassess this patient's status, or if there is a new clinical indication. Normal: Consider a repeat DEXA in 5 years or sooner, or if there is a new clinical indication. All treatment decisions require clinical judgment and consideration of individual patient factors, including patient preferences, comorbidities, previous drug use, risk factors not captured in the FRAX model (e.g., frailty, falls, vitamin D deficiency, increased bone turnover, interval significant decline in bone density ) and possible under- or over-estimation of fracture risk by FRAX. In addition, the NOF Guide recommends that FDA-approved medical therapies be considered in postmenopausal women and men age >= 50 years with a: * Hip or vertebral (clinical or morphometric) fracture * T-score of <=-2.5 at the spine or hip * Ten-year fracture probability by FRAX of >= 3% for hip fracture or >=20% for major osteoporotic fracture. Dictated by: Enzo Gill M.D. on 12/17/2024 at 16:57 Approved by: Enzo Gill M.D. on 12/17/2024 at 16:58
== END ==
LOC: RAD 14:28
PROVIDERS: PCP Family Medicine; Referring Provider Family Medicine; Visit Provider Family Medicine
DX: M85.88 Other specified disorders of bone density and structure, other site (principal); Z78.0 Asymptomatic menopausal state
CPT/HCPCS: 77080

== ENCOUNTER 2025-04-21 12:13 | Emergency (ER) | payer MEDICARE, OTHER, SELFPAY ==
[2025-04-21] VITALS (12 sets, daily range): BP systolic 169–234; BP diastolic 78–111; PULSE 77–113; RESP 24–36; TEMP 36.7; O2SAT 91–96; BMI 46.3
--- NOTE | 2025-04-21 12:24 | DI.RAD.S_ITS ---
PROCEDURE: XR CHEST 1V INDICATIONS: Chest Pain TECHNIQUE: One view of the chest was acquired. COMPARISON: [facility], CR, XR CHEST 1V, 04/27/2019, 12:11. [facility], CR, XR CHEST 1V, 10/24/2018, 12:38. FINDINGS: Surgical changes and devices: Left chest wall pacemaker. Lungs and pleura: Low lung volumes. Small right pleural effusion and possible small left pleural effusion. Interstitial markings appear prominent Mediastinum: Mediastinal contours appear normal. Heart size is normal. Bones and chest wall: No suspicious bony lesions. Overlying soft tissues appear unremarkable. IMPRESSION: Low lung volumes. Prominent interstitial markings may be secondary to low lung volumes versus pulmonary edema. Small right and possible small left pleural effusions. Dictated by: Huber Elliott M.D. on 04/21/2025 at 13:03 Approved by: Huber Elliott M.D. on 04/21/2025 at 13:06
--- NOTE | 2025-04-21 12:54 | EKG_ITS ---
[facility] [address] [place] [address] Test Date: 2025-04-21 Pat Name: Ximena Beckett Department: [facility] Room: Gender: Female System Designer: YISSEL : 1940 Requested By: Order Number: [id number] Reading MD: Yomi Farley Measurements Intervals [place] Rate: 108 P: WI: QRS: -28 QRSD: 116 T: -28 QT: 390 QTc: 522 Interpretive Statements Atrial fibrillation with rapid ventricular response Incomplete right bundle branch block Nonspecific ST and T wave abnormality Prolonged QT Electronically Signed On 04-22-2025 19:07:54 PDT by Yomi Farley
[2025-04-21 13:17] LABS: Add Manual Diff / Slide Review NO; Basophils Absolute Auto 0 /uL (0-100); Basophils Percent Auto 0.5 % (0-2); Eosinophils Absolute Auto 100 /uL (0-450); Eosinophils Percent Auto 0.8 % (2-4); Hematocrit 39.3 % (36-46); Hemoglobin 12.7 g/dL (12.0-16.0); Lymphocytes Absolute Auto 700 /uL (1100-4500); Lymphocytes Percent Auto 8.6 % (25-40); Mean Corpuscular HGB Conc 32.3 % (30-36); Mean Corpuscular Hemoglobin 31.5 PG (26-34); Mean Corpuscular Volume 97.7 fL (80-100); Monocytes Absolute Auto 800 /uL (0-900); Monocytes Percent Auto 9.7 % (3-14); Neutrophils Absolute Auto 6500 /uL (1500-7000); Neutrophils Percent Auto 80.4 % (50-75); Platelet Count 262 X10^3/uL (150-400); Red Blood Cell Count 4.03 X10^6/uL (4.0-5.2); White Blood Cell Count 8.1 X10^3/uL (4.5-11.0)
[2025-04-21 13:22] LABS: INR 1.6 (0.9-1.3); Prothrombin Time 18.4 SECONDS (9.4-12.5)
[2025-04-21 13:25] LABS: PTT Partial Thromboplastin Tim 31 SECONDS (25.1-36.5)
[2025-04-21 13:26] LABS: Alanine Aminotransferase 16 IU/L (<35); Albumin 3.7 g/dL (3.5-5.0); Albumin Globulin Ratio 1.1 (1.0-2.8); Alkaline Phosphatase 82 U/L (38-126); Aspartate Aminotransferase 34 IU/L (14-36); BUN Creatinine Ratio 15.8 (6-22); Bilirubin Total 1.1 mg/dL (0.2-1.3); Blood Urea Nitrogen 9 mg/dL (7-17); Calcium 8.5 mg/dL (8.4-10.2); Carbon Dioxide 32 mmol/L (22-32); Chloride 103 mmol/L (98-107); Creatine Kinase 50 U/L (30-135); Estimated Glomerular Filt Rate > 60 mL/min (>60); Globulin 3.5 g/dL (1.7-4.1); Glucose 92 mg/dL (70-99); Lipase 18 U/L (23-300); Magnesium 1.3 mg/dL (1.6-2.3); Potassium 3.5 mmol/L (3.4-5.1); Sodium 140 mmol/L (137-145); Total Protein 7.2 g/dL (6.3-8.2)
[2025-04-21 13:27] LABS: HEMOLYSIS 64 (0-50)
[2025-04-21] MEDS: ASPIRIN 81 MG CHEW TAB 324 MG PO (13:27)
[2025-04-21 13:38] LABS: NT-proBNP (BNP-Adult 18+) 934 pg/mL (<450); Troponin I 0.025 ng/mL (0.01-0.034)
[2025-04-21] MEDS: METOPROLOL IR 25 MG TABLET PO (15:11)
[2025-04-21] MEDS: FUROSEMIDE 40 MG/4 ML VIAL IV (15:11)
[2025-04-21] MEDS: lisinopriL 5 MG TABLET PO (15:11)
[2025-04-21] MEDS: MAGNESIUM SULFATE 2 GM/50 ML PIGGYBACK IV (15:12)
--- NOTE | 2025-04-21 16:32 | ED_ITS ---
HPI - General Adult General Chief complaint: Shortness of Breath/Dyspnea Stated complaint: SOB, Sent from PCP Time Seen by Provider: 04/21/25 14:55 Source: patient and family Mode of arrival: Wheelchair History of Present Illness HPI narrative: 84-year-old female with history of congestive heart failure, for which she been prescribed furosemide and Aldactone, history of atrial fibrillation on rivaroxaban, complains of increasing shortness of breath last couple of days. Previous furosemide she stopped taking because she did not like urinating so frequently, also stopped the potassium supplement. She has these medications on hand at home however. She denies chest pain. Denies fevers chills cough. She has had lower extremity edema both sides. Unilateral calf/leg pain or swelling. Related Data Home Medications Medication Instructions Recorded Confirmed atorvastatin 40 mg tablet (Lipitor) 40 mg PO DAILY ##0 06/16/17 04/11/25 potassium chloride 10 mEq 20 meq PO QD-BID PRN with 06/16/17 04/11/25 tablet,extended release (Klor-Con) furosemide ##0 sulfasalazine 500 mg tablet 1,000 mg PO BID ##0 06/16/17 04/11/25 rivaroxaban 20 mg tablet 20 mg PO QPM 10/24/18 04/11/25 cranberry extract 1 dose PO DAILY 04/27/19 04/11/25 acetaminophen 650 mg 650 mg PO Q8H 04/11/25 04/11/25 tablet,extended release furosemide 20 mg tablet 20 mg PO DAILY 04/11/25 04/11/25 lisinopril 5 mg tablet 5 mg PO DAILY 04/11/25 04/11/25 metoprolol tartrate 25 mg tablet 25 mg PO BID 04/11/25 04/11/25 spironolactone 25 mg tablet 12.5 mg PO DAILY #0 tabs 04/11/25 04/11/25 Allergies Allergy/AdvReac Type Severity Reaction Status Date / Time No Known Drug Allergies Allergy Verified 04/21/25 12:23 Patient History Medical History (Updated 04/21/25 @ 17:12 by Kali Rivers MD) Hx of small bowel obstruction Depression Atypical pneumonia DVT (deep venous thrombosis) Atrial fibrillation Hypertension Hyperlipidemia Surgical History H/O section History of cholecystectomy History of appendectomy No pertinent past surgical history Family History Mother No known health problems Father No known health problems Social History (Updated 10/24/18 @ 14:32 by Mracos Roy DO) household members: spouse and family lives independently: Yes Smoking Status: Former smoker alcohol intake: current Smoking Status: Former smoker alcohol intake frequency: holidays/special occasions only Exam Narrative Exam Narrative: GENERAL: Well-developed patient, in mild distress. HEAD: Atraumatic. Normocephalic. EYES: Pupils equal round and reactive. Extraocular motions intact. No scleral icterus. No injection or drainage. ENT: Nose without bleeding, purulent drainage. Throat without erythema, tonsillar hypertrophy or exudate. Airway patent. NECK: Trachea midline. Non tender CARDIOVASCULAR: Regular rate and rhythm without murmurs, gallops, or rubs. RESPIRATORY: Clear to auscultation. Breath sounds equal bilaterally. No wheezes, rales, or rhonchi. GASTROINTESTINAL: Abdomen soft, non-tender, nondistended. EXTREMITIES: No edema or joint tenderness. BLE edema trace to mid forelegs, some venous statis changes, patient says the swelling improved after IV Lasix dose by the time for my exam. BACK: Nontender without deformity or crepitance. No flank tenderness. NEURO: AOx3. Motor functions grossly nonfocal SKIN: No rash or erythema of visible areas Initial Vital Signs Initial Vital Signs: Vital Signs Temperature 98.1 F 04/21/25 12:18 Pulse Rate 113 H 04/21/25 12:18 Respiratory Rate 28 H 04/21/25 12:18 Blood Pressure 217/110 H 04/21/25 12:18 Pulse Oximetry 95 04/21/25 12:18 Oxygen Delivery Method Room Air 04/21/25 12:18 Course Orders Ordered: ED Orders 04/21/25 12:24 XR chest 1V Stat EKG-12 Lead Stat 04/21/25 13:10 Complete Blood Count AUTO DIFF Stat Comprehensive Metabolic Panel Stat Lipase Stat Magnesium Stat NT-proBNP (BNP-Adult 18+) Stat PTT Partial Thromboplastin Jakob Stat Prothrombin Time INR Stat Troponin & CK Cardiac Panel Stat Discontinued Medications Aspirin (Aspirin 81 Mg Chew Tab) 324 mg PO NOW ONE Stop: 04/21/25 12:25 Last Admin: 04/21/25 13:27 Dose: 324 mg Documented By: CINTHYA Furosemide (Furosemide 40 Mg/4 Ml Vial) 40 mg IV NOW ONE Stop: 04/21/25 14:57 Last Admin: 04/21/25 15:11 Dose: 40 mg Documented By: PETRONA Hydralazine HCl (Hydralazine 20 Mg/Ml Vial) 5 mg IV NOW ONE Stop: 04/21/25 16:34 Last Admin: 04/21/25 17:17 Dose: 5 mg Documented By: CINTHYA Magnesium Sulfate (Magnesium Sulfate) 2 gm in 50 mls @ 150 mls/hr IV NOW ONE Stop: 04/21/25 15:17 Last Infusion: 04/21/25 15:35 Dose: Infused Documented By: PETRONA Co-signed By: CINTHYA Admin: 04/21/25 15:12 Dose: 150 mls/hr Documented By: PETRONA Co-signed By: [facility] Lisinopril (Lisinopril 5 Mg Tablet) 5 mg PO NOW ONE Stop: 04/21/25 15:01 Last Admin: 04/21/25 15:11 Dose: 5 mg Documented By: PETRONA Metoprolol Tartrate (Metoprolol Ir 25 Mg Tablet) 25 mg PO NOW ONE Stop: 04/21/25 14:58 Last Admin: 04/21/25 15:11 Dose: 25 mg Documented By: PETRONA Vital Signs Vital signs: Vital Signs - 8 hr 04/21/25 13:21 04/21/25 15:11 04/21/25 16:03 Pulse Rate 100 H 93 H 94 H Respiratory Rate 24 Blood Pressure 191/107 H 234/111 H Pulse Oximetry 95 93 Oxygen Delivery Method Room Air 04/21/25 16:30 04/21/25 16:31 04/21/25 16:31 Pulse Rate 92 H 84 Respiratory Rate 25 H 24 Blood Pressure 169/93 H Pulse Oximetry 92 93 Oxygen Delivery Method 04/21/25 17:00 04/21/25 17:01 04/21/25 17:01 Pulse Rate 95 H 92 H Respiratory Rate 29 H 27 H Blood Pressure 174/78 H Pulse Oximetry 93 94 Oxygen Delivery Method 04/21/25 17:17 04/21/25 17:30 04/21/25 17:31 Pulse Rate 77 90 99 H Respiratory Rate 31 H 26 H Blood Pressure 174/78 H Pulse Oximetry 96 96 Oxygen Delivery Method 04/21/25 17:31 04/21/25 17:43 04/21/25 17:43 Pulse Rate 97 H Respiratory Rate 36 H Blood Pressure 183/80 H 175/80 H Pulse Oximetry 91 Oxygen Delivery Method Medical Decision Making Lab Data Lab results narrative: White blood cell count 8100, hemoglobin 12.7, platelets 262,000. Glucose 92. BUN 9 with creatinine 0.57. Serum CO2 32. Sodium 140 with potassium 3.5. Liver functions normal. Lipase normal. BNP 934. Troponin 0.025. Magnesium 1.3 low. 04/21/25 13:10 04/21/25 13:10 Labs: Lab Results 04/21/25 Range/Units 13:10 WBC 8.1 (4.5-11.0) X10^3/uL RBC 4.03 (4.0-5.2) X10^6/uL Hgb 12.7 (12.0-16.0) g/dL Hct 39.3 (36-46) % MCV 97.7 (80-100) fL MCH 31.5 (26-34) PG MCHC 32.3 (30-36) % RDW 15.0 H (11.6-14.8) % Plt Count 262 (150-400) X10^3/uL Neut % (Auto) 80.4 H (50-75) % Lymph % (Auto) 8.6 L (25-40) % [place] % (Auto) 9.7 (3-14) % Eos % (Auto) 0.8 L (2-4) % Baso % (Auto) 0.5 (0-2) % Neut # (Auto) 6500 (4797-7214) /uL Lymph # (Auto) 700 L (0502-9383) /uL [place] # (Auto) 800 (0-900) /uL Eos # (Auto) 100 (0-450) /uL Baso # (Auto) 0 (0-100) /uL PT 18.4 H (9.4-12.5) SECONDS INR 1.6 H (0.9-1.3) APTT 31 (25.1-36.5) SECONDS Sodium 140 (137-145) mmol/L Potassium 3.5 (3.4-5.1) mmol/L Chloride 103 (98-107) mmol/L Carbon Dioxide 32 (22-32) mmol/L BUN 9 (7-17) mg/dL Creatinine 0.57 (0.52-1.04) mg/dL Estimated GFR > 60 (>60) mL/min BUN/Creatinine Ratio 15.8 (6-22) Glucose 92 (70-99) mg/dL Calcium 8.5 (8.4-10.2) mg/dL Magnesium 1.3 L (1.6-2.3) mg/dL Total Bilirubin 1.1 (0.2-1.3) mg/dL AST 34 (14-36) IU/L ALT 16 (<35) IU/L Alkaline Phosphatase 82 (38-126) U/L Total Creatine Kinase 50 (30-135) U/L Troponin I 0.025 (0.01-0.034) ng/mL NT-Pro-B Natriuret Pep 934 H (<450) pg/mL Total Protein 7.2 (6.3-8.2) g/dL Albumin 3.7 (3.5-5.0) g/dL Globulin 3.5 (1.7-4.1) g/dL Albumin/Globulin Ratio 1.1 (1.0-2.8) Lipase 18 L (23-300) U/L Imaging Data Chest x-ray: Radiologist's Impression: Imaging Reports Close Chest X-Ray (Signed) [facility] - 04/21/25 Launch?[place] [address] XRay Report Signed Patient: Ximena Beckett MR#: [id number] : 1940 Acct:[id number] Age/Sex: 84 / F Date of Service: 04/21/25 Loc: ED Accession Number: [id number] Procedure: XR chest 1V Ordering Provider: Kali Rivers MD PROCEDURE: XR CHEST 1V INDICATIONS: Chest Pain TECHNIQUE: One view of the chest was acquired. COMPARISON: [facility], , XR CHEST 1V, 04/27/2019, 12:11. [facility], , XR CHEST 1V, 10/24/2018, 12:38. FINDINGS: Surgical changes and devices: Left chest wall pacemaker. Lungs and pleura: Low lung volumes. Small right pleural effusion and possible small left pleural effusion. Interstitial markings appear prominent Mediastinum: Mediastinal contours appear normal. Heart size is normal. Bones and chest wall: No suspicious bony lesions. Overlying soft tissues appear unremarkable. IMPRESSION: Low lung volumes. Prominent interstitial markings may be secondary to low lung volumes versus pulmonary edema. Small right and possible small left pleural effusions. Dictated by: Huber Elliott M.D. on 04/21/2025 at 13:03 Approved by: Huber Elliott M.D. on 04/21/2025 at 13:06 ECG Data Attestation: I personally reviewed and interpreted this ECG as follows: Interpretation: 1254, Atrial fibrillation with rapid ventricular response 108, no obvious ST segment elevation or depression changes. QRS 116, QTC 522. MDM Narrative Medical decision making narrative: 84-year-old female with history of atrial fibrillation on anticoagulation, prior CHF lower extremity edema, prescribed Lasix which she has not been taking since she does not like urinating so often. Afebrile, sirs screen negative. EKG shows atrial fibrillation without rapid ventricular response. No obvious ischemic changes. Troponin negative. Magnesium 1.3 low, repleted IV 2 g. Chest x-ray suspicious for pulmonary edema, small pleural effusions. BNP 900s mildly elevated. IV Lasix, patient had considerable diuresis, lower extremities feel less swollen, weaned off of oxygen placed at triage. Patient would like to be discharged home, improved, has supply of her Lasix and potassium at home, willing to restart both daily doses. Can follow up with her PCP early this next week. Home with . Return precautions discussed. Discharge Plan Departure Patient Disposition: Home Clinical Impression: Congestive heart failure, Breath shortness, Pleural effusion, Hypomagnesemia, Edema of both lower extremities Activity Restrictions/Additional Instructions: History of bilateral lower extremity leg swelling, history of atrial fibrillation on chronic anticoagulation with rivaroxaban, previously prescribed furosemide/Lasix along with potassium supplementation, but not taken due to increased frequency of urination known effect. EKG did show atrial fibrillation, which was known, no persisting fast rapid heart rate at this time. Continue your metoprolol medication. Chest x-ray today suspicious for fluid overload with small pleural effusions, but no obvious pneumonia like changes per Radiology report. Blood testing suspicious for congestive heart failure as well. Magnesium level low, IV magnesium given. IV Lasix was given, and it did have an desired effect of making you urinate quite a bit, to the point where you I have been able to wean off of oxygen to room air, and have lower extremity swelling that is decreased. You have a supply of Lasix 20 mg tablets at home, and a supply of potassium repletion tablets to take at the same time, advised that you resume this daily dosing for now, and then follow up with your regular doctor early next week to recheck symptoms and perhaps your lab tests and kidney function tests. Return earlier to this/nearest emergency department for any change worsening symptoms or any concerns prior. Prescriptions: No Action sulfasalazine 500 MG tablet 1,000 mg PO BID Qty: 0 atorvastatin [Lipitor] 40 MG tablet 40 mg PO DAILY Qty: 0 potassium chloride [Klor-Con 10] 10 MEQ tablet extended release 20 meq PO QD-BID PRN (Reason: with furosemide) Qty: 0 spironolactone 25 mg tablet 12.5 mg PO DAILY Qty: 0 acetaminophen 650 mg tablet extended release 650 mg PO Q8H furosemide 20 mg tablet 20 mg PO DAILY lisinopril 5 mg tablet 5 mg PO DAILY metoprolol tartrate 25 mg tablet 25 mg PO BID cranberry extract 1 dose PO DAILY Patient Comments: patient states unsure of dose rivaroxaban 20 mg Tablet 20 mg PO QPM Referrals: Marcos Bear MD [Primary Care Provider] - Stand Alone Forms: Patient Portal/API/Survey
[2025-04-21] MEDS: hydrALAZINE 20 MG/ML VIAL 5 MG IV (17:17)
== END 2025-04-21 18:08 | disposition home or self-care (01) ==
PROVIDERS: Emergency Provider Emergency Medicine; PCP Family Medicine
DX: I50.9 Heart failure, unspecified (principal); R60.9 Edema, unspecified; R07.9 Chest pain, unspecified; R06.02 Shortness of breath; J90 Pleural effusion, not elsewhere classified; E83.42 Hypomagnesemia; Z79.01 Long term (current) use of anticoagulants
CPT/HCPCS: 36415; 71045; 80053; 82550; 83690; 83735; 83880; 84484; 85025; 85610; 85730; 93005; 96365; 96375; 99284; J0360; J1938; J3475

== ENCOUNTER → 2025-10-26 11:42 | Outpatient (CLI) | payer MEDICARE, OTHER, SELFPAY ==
--- NOTE | 2025-10-26 11:44 | DI.US.S_ITS ---
PROCEDURE: US CAROTID DOPPLER BI INDICATIONS: TIA TECHNIQUE: Color and pulse Doppler interrogation was performed of both carotid systems, with image documentation and velocity measurements. COMPARISON: [facility], , CAROTID DOPPLER BI, 12/22/2018, 13:14. FINDINGS: Stenosis calculations are based on SRU (Society of Radiologists in Ultrasound) criteria. The flow velocities and the arterial waveforms are normal within both carotid arterial systems. Atherosclerotic plaque is seen on both sides. The estimated degree of internal carotid artery stenosis is less than 50%. Antegrade flow is confirmed within both vertebral arteries. IMPRESSION: No hemodynamically significant stenosis is seen. Atherosclerotic plaque is noted bilaterally. Similar to the prior. Dictated by: Nolberto Don M.D. on 10/26/2025 at 13:30 Approved by: Nolberto Don M.D. on 10/26/2025 at 13:31
== END ==
LOC: US 11:43
PROVIDERS: PCP Family Medicine; Referring Provider Family Medicine; Visit Provider Family Medicine
DX: G45.9 Transient cerebral ischemic attack, unspecified (principal); I65.23 Occlusion and stenosis of bilateral carotid arteries
CPT/HCPCS: 93880